=== PATIENT | female | born 1960 | race Caucasian/White ===

== ENCOUNTER → 2023-07-03 13:36 | Outpatient (REF) | payer OTHER, SELFPAY ==
[2023-07-03 14:27] LABS: % Basophils 0.5 % (0-2); % Eosinophils 2.3 % (0-6); % Immature Granulocytes 0.5 % (0-0.5); % Lymphocytes 16.5 % (20.5-51.1); % Monocytes 8.9 % (1.7-9.3); % Neutrophils 71.3 % (42.2-75.2); Absolute Eosinophils 0.2 10^3/uL (0-0.7); Absolute Lymphocytes 1.1 10^3/uL (1.2-3.4); Absolute Monocytes 0.6 10^3/uL (0.1-0.6); Absolute Neutrophils 4.7 10^3/uL (1.4-6.5); Hematocrit 35.8 % (37.0-47.0); Hemoglobin 11.9 g/dL (12.0-16.0); Mean Corp Hgb Conc. 33.2 g/dL (33.0-37.0); Mean Corpuscular Hgb 31.1 pg (27.0-31.0); Mean Corpuscular Volume 93.5 fL (81.0-99.0); Mean Platelet Volume 9.8 fL (7.4-10.4); Nucleated Red Blood Cells % 0 %; Platelet Count 123 10^3/uL (130-400); Red Blood Cell Count 3.83 10^6/uL (4.20-5.40); Red Cell Dist. Width 15.2 % (11.5-14.5); White Blood Cell Count 6.6 10^3/uL (4.8-10.8)
[2023-07-03 14:58] LABS: ALT (SGPT) 18 U/L (0-35); AST (SGOT) 40 U/L (14-36); Albumin 4.2 g/dl (3.5-5.0); Alkaline Phosphatase 86 U/L (38-126); Blood Urea Nitrogen 13 mg/dl (7-17); Calcium 9.1 mg/dl (8.4-10.2); Carbon Dioxide 29 mmol/L (22-30); Chloride 103 mmol/L (98-107); Glucose 78 mg/dl (70-99); Potassium 4.3 mmol/L (3.5-5.1); Sodium 137 mmol/L (135-145); Total Bilirubin 0.7 mg/dl (0.2-1.3); Total Protein 6.6 g/dl (6.3-8.2); eGFR > 60.00
[2023-07-06 08:08] LABS: CA 19-9 20 U/mL (<=35)
== END ==
LOC: REG 13:36
PROVIDERS: ATTENDING PHYSICIAN Internal Medicine Hematology & Oncology
DX: C25.3 Malignant neoplasm of pancreatic duct (principal); K86.81 Exocrine pancreatic insufficiency
CPT/HCPCS: 36415; 80053; 85025; 86301

== ENCOUNTER → 2023-07-24 13:17 | Outpatient (REF) | payer OTHER, SELFPAY ==
[2023-07-24 13:37] LABS: % Basophils 0.1 % (0-2); % Eosinophils 1.9 % (0-6); % Immature Granulocytes 0.5 % (0-0.5); % Monocytes 10.1 % (1.7-9.3); % Neutrophils 74.4 % (42.2-75.2); Absolute Eosinophils 0.1 10^3/uL (0-0.7); Absolute Monocytes 0.8 10^3/uL (0.1-0.6); Absolute Neutrophils 5.5 10^3/uL (1.4-6.5); Hematocrit 33.2 % (37.0-47.0); Hemoglobin 11.3 g/dL (12.0-16.0); Mean Corpuscular Hgb 32.8 pg (27.0-31.0); Mean Corpuscular Volume 96.2 fL (81.0-99.0); Mean Platelet Volume 9.6 fL (7.4-10.4); Nucleated Red Blood Cells % 0 %; Platelet Count 103 10^3/uL (130-400); Red Blood Cell Count 3.45 10^6/uL (4.20-5.40); Red Cell Dist. Width 18.4 % (11.5-14.5); White Blood Cell Count 7.5 10^3/uL (4.8-10.8)
[2023-07-24 13:52] LABS: ALT (SGPT) 33 U/L (0-35); AST (SGOT) 57 U/L (14-36); Albumin 3.8 g/dl (3.5-5.0); Alkaline Phosphatase 92 U/L (38-126); Blood Urea Nitrogen 10 mg/dl (7-17); Calcium 8.7 mg/dl (8.4-10.2); Carbon Dioxide 29 mmol/L (22-30); Chloride 103 mmol/L (98-107); Glucose 100 mg/dl (70-99); Potassium 4.5 mmol/L (3.5-5.1); Sodium 134 mmol/L (135-145); Total Bilirubin 0.8 mg/dl (0.2-1.3); Total Protein 6.1 g/dl (6.3-8.2); eGFR > 60.00
[2023-07-27 19:39] LABS: CA 19-9 19 U/mL (<=35)
== END ==
LOC: REG 13:17
PROVIDERS: ATTENDING PHYSICIAN Internal Medicine Hematology & Oncology; FAMILY PHYSICIAN Family Medicine
DX: C25.3 Malignant neoplasm of pancreatic duct (principal); K86.81 Exocrine pancreatic insufficiency
CPT/HCPCS: 36415; 80053; 85025; 86301

== ENCOUNTER → 2023-08-08 14:50 | Outpatient (REF) | payer OTHER, SELFPAY ==
[2023-08-08 15:07] LABS: % Basophils 0.3 % (0-2); % Eosinophils 1.3 % (0-6); % Immature Granulocytes 0.1 % (0-0.5); % Lymphocytes 13.1 % (20.5-51.1); % Monocytes 7.4 % (1.7-9.3); % Neutrophils 77.8 % (42.2-75.2); Absolute Eosinophils 0.1 10^3/uL (0-0.7); Absolute Monocytes 0.6 10^3/uL (0.1-0.6); Hematocrit 33.4 % (37.0-47.0); Hemoglobin 11.2 g/dL (12.0-16.0); Mean Corp Hgb Conc. 33.5 g/dL (33.0-37.0); Mean Corpuscular Volume 98.5 fL (81.0-99.0); Mean Platelet Volume 9.8 fL (7.4-10.4); Platelet Count 116 10^3/uL (130-400); Red Blood Cell Count 3.39 10^6/uL (4.20-5.40); Red Cell Dist. Width 18.4 % (11.5-14.5); White Blood Cell Count 7.7 10^3/uL (4.8-10.8)
[2023-08-08 16:12] LABS: ALT (SGPT) 21 U/L (0-35); AST (SGOT) 39 U/L (14-36); Albumin 3.8 g/dl (3.5-5.0); Alkaline Phosphatase 87 U/L (38-126); Blood Urea Nitrogen 9 mg/dl (7-17); Calcium 8.6 mg/dl (8.4-10.2); Carbon Dioxide 24 mmol/L (22-30); Chloride 105 mmol/L (98-107); Glucose 91 mg/dl (70-99); Potassium 3.9 mmol/L (3.5-5.1); Sodium 134 mmol/L (135-145); Total Bilirubin 0.6 mg/dl (0.2-1.3); Total Protein 6.2 g/dl (6.3-8.2); eGFR > 60.00
[2023-08-10 20:42] LABS: CA 19-9 18 U/mL (<=35)
== END ==
LOC: OIDL 14:50
PROVIDERS: ATTENDING PHYSICIAN Internal Medicine Hematology & Oncology
DX: C25.3 Malignant neoplasm of pancreatic duct (principal)
CPT/HCPCS: 80053; 85025; 86301

== ENCOUNTER → 2023-08-15 13:05 | Outpatient (REF) | payer OTHER, SELFPAY | LOC: RAD 13:05 | PROVIDERS: ATTENDING PHYSICIAN Internal Medicine Hematology & Oncology; FAMILY PHYSICIAN Family Medicine | DX: C25.3 Malignant neoplasm of pancreatic duct (principal); K86.81 Exocrine pancreatic insufficiency | CPT/HCPCS: 71260; 74177; Q9967 ==

== ENCOUNTER → 2023-08-20 07:56 | Outpatient (REF) | payer OTHER, SELFPAY | LOC: PAVMRI 07:56 | PROVIDERS: ATTENDING PHYSICIAN Internal Medicine Hematology & Oncology; FAMILY PHYSICIAN Family Medicine | DX: C25.3 Malignant neoplasm of pancreatic duct (principal); K86.81 Exocrine pancreatic insufficiency; L27.1 Localized skin eruption due to drugs and medicaments taken internally | CPT/HCPCS: 74183; A9575 ==

== ENCOUNTER → 2023-08-27 07:55 | Outpatient (REF) | payer OTHER, SELFPAY ==
[2023-08-27 09:45] LABS: % Basophils 0.3 % (0-2); % Eosinophils 1.4 % (0-6); % Immature Granulocytes 0.4 % (0-0.5); % Lymphocytes 11.8 % (20.5-51.1); % Monocytes 9.9 % (1.7-9.3); % Neutrophils 76.2 % (42.2-75.2); Absolute Eosinophils 0.1 10^3/uL (0-0.7); Absolute Lymphocytes 0.9 10^3/uL (1.2-3.4); Absolute Monocytes 0.7 10^3/uL (0.1-0.6); Absolute Neutrophils 5.6 10^3/uL (1.4-6.5); Hematocrit 35.1 % (37.0-47.0); Mean Corp Hgb Conc. 34.2 g/dL (33.0-37.0); Mean Corpuscular Hgb 34.5 pg (27.0-31.0); Mean Corpuscular Volume 100.9 fL (81.0-99.0); Nucleated Red Blood Cells % 0 %; Platelet Count 111 10^3/uL (130-400); Red Blood Cell Count 3.48 10^6/uL (4.20-5.40); Red Cell Dist. Width 19.9 % (11.5-14.5); White Blood Cell Count 7.3 10^3/uL (4.8-10.8)
[2023-08-27 10:13] LABS: ALT (SGPT) 18 U/L (0-35); AST (SGOT) 35 U/L (14-36); Albumin 4.3 g/dl (3.5-5.0); Alkaline Phosphatase 98 U/L (38-126); Blood Urea Nitrogen 11 mg/dl (7-17); Calcium 9.7 mg/dl (8.4-10.2); Carbon Dioxide 26 mmol/L (22-30); Chloride 102 mmol/L (98-107); Glucose 87 mg/dl (70-99); Potassium 4.9 mmol/L (3.5-5.1); Sodium 136 mmol/L (135-145); Total Bilirubin 0.7 mg/dl (0.2-1.3); Total Protein 6.7 g/dl (6.3-8.2); eGFR > 60.00
== END ==
LOC: RAD 07:55
PROVIDERS: Internal Medicine Hematology & Oncology; ATTENDING PHYSICIAN Surgery Vascular Surgery; FAMILY PHYSICIAN Family Medicine
DX: I77.9 Disorder of arteries and arterioles, unspecified (principal); C25.3 Malignant neoplasm of pancreatic duct; K86.81 Exocrine pancreatic insufficiency; L27.1 Localized skin eruption due to drugs and medicaments taken internally
CPT/HCPCS: 36415; 80053; 85025; 93922; 93978

== ENCOUNTER → 2023-09-11 10:20 | Outpatient (REF) | payer OTHER, SELFPAY ==
[2023-09-11 11:15] LABS: Urine Albumin Negative (Neg - Trace); Urine Bilirubin Negative (Negative); Urine Character Clear (Clear); Urine Color Yellow; Urine Glucose Negative (Negative); Urine Ketone Negative (Negative); Urine Leukocyte Negative (Negative); Urine Nitrite Negative (Negative); Urine Occult Blood 2+ (Negative); Urine Urobilinogen Negative (Neg - 1+)
[2023-09-11 11:16] LABS: % Basophils 0.2 % (0-2); % Eosinophils 1.6 % (0-6); % Immature Granulocytes 0.2 % (0-0.5); % Lymphocytes 13.7 % (20.5-51.1); % Neutrophils 75.3 % (42.2-75.2); Absolute Eosinophils 0.1 10^3/uL (0-0.7); Absolute Lymphocytes 0.9 10^3/uL (1.2-3.4); Absolute Monocytes 0.6 10^3/uL (0.1-0.6); Absolute Neutrophils 4.8 10^3/uL (1.4-6.5); Hematocrit 34.7 % (37.0-47.0); Hemoglobin 11.5 g/dL (12.0-16.0); Mean Corp Hgb Conc. 33.1 g/dL (33.0-37.0); Mean Corpuscular Hgb 35.3 pg (27.0-31.0); Mean Corpuscular Volume 106.4 fL (81.0-99.0); Mean Platelet Volume 10.1 fL (7.4-10.4); Nucleated Red Blood Cells % 0 %; Platelet Count 87 10^3/uL (130-400); Red Blood Cell Count 3.26 10^6/uL (4.20-5.40); Red Cell Dist. Width 20.4 % (11.5-14.5); White Blood Cell Count 6.4 10^3/uL (4.8-10.8)
[2023-09-11 11:29] LABS: Urine Squamous Cell >30 /LPF (Few)
[2023-09-11 11:30] LABS: Urine Red Blood Cell 0-2 /HPF (0-2)
[2023-09-11 12:11] LABS: ALT (SGPT) 20 U/L (0-35); AST (SGOT) 40 U/L (14-36); Alkaline Phosphatase 92 U/L (38-126); Blood Urea Nitrogen 9 mg/dl (7-17); Calcium 9.2 mg/dl (8.4-10.2); Carbon Dioxide 25 mmol/L (22-30); Chloride 102 mmol/L (98-107); Glucose 90 mg/dl (70-99); Potassium 5.1 mmol/L (3.5-5.1); Sodium 132 mmol/L (135-145); Total Bilirubin 0.7 mg/dl (0.2-1.3); Total Protein 6.3 g/dl (6.3-8.2); eGFR > 60.00
== END ==
LOC: REG 10:20
PROVIDERS: ATTENDING PHYSICIAN Internal Medicine Hematology & Oncology
DX: C25.3 Malignant neoplasm of pancreatic duct (principal); K86.81 Exocrine pancreatic insufficiency; L27.1 Localized skin eruption due to drugs and medicaments taken internally
CPT/HCPCS: 36415; 80053; 81003; 81015; 85025; 87086

== ENCOUNTER → 2023-09-28 15:20 | Outpatient (REF) | payer OTHER, SELFPAY ==
[2023-09-28 16:36] LABS: % Basophils 0.4 % (0-2); % Eosinophils 2.2 % (0-6); % Immature Granulocytes 0.2 % (0-0.5); % Lymphocytes 19.9 % (20.5-51.1); % Monocytes 11.9 % (1.7-9.3); % Neutrophils 65.4 % (42.2-75.2); Absolute Eosinophils 0.1 10^3/uL (0-0.7); Absolute Lymphocytes 1.1 10^3/uL (1.2-3.4); Absolute Monocytes 0.7 10^3/uL (0.1-0.6); Absolute Neutrophils 3.6 10^3/uL (1.4-6.5); Hemoglobin 11.2 g/dL (12.0-16.0); Mean Corpuscular Hgb 36.8 pg (27.0-31.0); Mean Corpuscular Volume 105.3 fL (81.0-99.0); Mean Platelet Volume 10.3 fL (7.4-10.4); Nucleated Red Blood Cells % 0 %; Platelet Count 105 10^3/uL (130-400); Red Blood Cell Count 3.04 10^6/uL (4.20-5.40); Red Cell Dist. Width 20.2 % (11.5-14.5); White Blood Cell Count 5.5 10^3/uL (4.8-10.8)
[2023-09-28 17:06] LABS: ALT (SGPT) 20 U/L (0-35); AST (SGOT) 43 U/L (14-36); Albumin 4.1 g/dl (3.5-5.0); Alkaline Phosphatase 91 U/L (38-126); Blood Urea Nitrogen 9 mg/dl (7-17); Carbon Dioxide 29 mmol/L (22-30); Chloride 102 mmol/L (98-107); Glucose 146 mg/dl (70-99); Potassium 4.3 mmol/L (3.5-5.1); Sodium 134 mmol/L (135-145); Total Bilirubin 0.5 mg/dl (0.2-1.3); Total Protein 6.4 g/dl (6.3-8.2); eGFR > 60.00
[2023-10-01 02:36] LABS: CA 19-9 21 U/mL (<=35)
== END ==
LOC: REG 15:20
PROVIDERS: ATTENDING PHYSICIAN Internal Medicine Hematology & Oncology; FAMILY PHYSICIAN Family Medicine
DX: C25.3 Malignant neoplasm of pancreatic duct (principal); K86.81 Exocrine pancreatic insufficiency
CPT/HCPCS: 36415; 80053; 85025; 86301

== ENCOUNTER → 2023-11-07 13:19 | Outpatient (REF) | payer OTHER, SELFPAY ==
[2023-11-07 15:18] LABS: % Basophils 0.3 % (0-2); % Eosinophils 1.4 % (0-6); % Immature Granulocytes 0.3 % (0-0.5); % Lymphocytes 13.1 % (20.5-51.1); % Monocytes 7.9 % (1.7-9.3); Absolute Eosinophils 0.1 10^3/uL (0-0.7); Absolute Lymphocytes 0.8 10^3/uL (1.2-3.4); Absolute Monocytes 0.5 10^3/uL (0.1-0.6); Absolute Neutrophils 4.5 10^3/uL (1.4-6.5); Hematocrit 34.4 % (37.0-47.0); Mean Corp Hgb Conc. 34.9 g/dL (33.0-37.0); Mean Corpuscular Volume 108.9 fL (81.0-99.0); Mean Platelet Volume 10.2 fL (7.4-10.4); Nucleated Red Blood Cells % 0 %; Platelet Count 99 10^3/uL (130-400); Red Blood Cell Count 3.16 10^6/uL (4.20-5.40); Red Cell Dist. Width 17.2 % (11.5-14.5); White Blood Cell Count 5.8 10^3/uL (4.8-10.8)
[2023-11-07 15:55] LABS: ALT (SGPT) 13 U/L (0-35); AST (SGOT) 33 U/L (14-36); Albumin 4.2 g/dl (3.5-5.0); Alkaline Phosphatase 104 U/L (38-126); Blood Urea Nitrogen 12 mg/dl (7-17); Calcium 9.2 mg/dl (8.4-10.2); Carbon Dioxide 24 mmol/L (22-30); Chloride 99 mmol/L (98-107); Glucose 98 mg/dl (70-99); Potassium 4.6 mmol/L (3.5-5.1); Sodium 132 mmol/L (135-145); Total Bilirubin 0.5 mg/dl (0.2-1.3); Total Protein 6.6 g/dl (6.3-8.2); eGFR > 60.00
[2023-11-09 21:27] LABS: CA 19-9 44 U/mL (<=35)
== END ==
LOC: RAD 13:19
PROVIDERS: ATTENDING PHYSICIAN Internal Medicine Hematology & Oncology; FAMILY PHYSICIAN Family Medicine
DX: C25.3 Malignant neoplasm of pancreatic duct (principal); K86.81 Exocrine pancreatic insufficiency; L27.1 Localized skin eruption due to drugs and medicaments taken internally
CPT/HCPCS: 36415; 71260; 74177; 80053; 85025; 86301; Q9967

== ENCOUNTER → 2023-11-14 13:01 | Outpatient (REF) | payer OTHER, SELFPAY ==
[2023-11-14 11:43] LABS: % Basophils 0.3 % (0-2); % Eosinophils 1.7 % (0-6); % Immature Granulocytes 0.2 % (0-0.5); % Lymphocytes 13.2 % (20.5-51.1); % Monocytes 9.8 % (1.7-9.3); % Neutrophils 74.8 % (42.2-75.2); Absolute Eosinophils 0.1 10^3/uL (0-0.7); Absolute Lymphocytes 0.8 10^3/uL (1.2-3.4); Absolute Monocytes 0.6 10^3/uL (0.1-0.6); Absolute Neutrophils 4.4 10^3/uL (1.4-6.5); Hematocrit 33.9 % (37.0-47.0); Hemoglobin 11.9 g/dL (12.0-16.0); Mean Corp Hgb Conc. 35.1 g/dL (33.0-37.0); Mean Corpuscular Hgb 38.4 pg (27.0-31.0); Mean Corpuscular Volume 109.4 fL (81.0-99.0); Mean Platelet Volume 9.9 fL (7.4-10.4); Platelet Count 77 10^3/uL (130-400); Red Cell Dist. Width 16.3 % (11.5-14.5); White Blood Cell Count 5.8 10^3/uL (4.8-10.8)
[2023-11-14 12:26] LABS: ALT (SGPT) 16 U/L (0-35); AST (SGOT) 35 U/L (14-36); Albumin 4.2 g/dl (3.5-5.0); Alkaline Phosphatase 91 U/L (38-126); Blood Urea Nitrogen 11 mg/dl (7-17); Carbon Dioxide 24 mmol/L (22-30); Chloride 102 mmol/L (98-107); Glucose 118 mg/dl (70-99); Potassium 4.4 mmol/L (3.5-5.1); Sodium 134 mmol/L (135-145); Total Bilirubin 0.6 mg/dl (0.2-1.3); Total Protein 6.5 g/dl (6.3-8.2); eGFR > 60.00
== END ==
LOC: OIDL 13:01
PROVIDERS: ATTENDING PHYSICIAN Internal Medicine Hematology & Oncology
DX: C25.3 Malignant neoplasm of pancreatic duct (principal)
CPT/HCPCS: 80053; 85025

== ENCOUNTER → 2023-11-27 12:09 | Outpatient (REF) | payer OTHER, SELFPAY ==
[2023-11-27 13:08] LABS: % Basophils 0.4 % (0-2); % Eosinophils 2.1 % (0-6); % Immature Granulocytes 0.4 % (0-0.5); % Lymphocytes 14.8 % (20.5-51.1); % Monocytes 10.4 % (1.7-9.3); % Neutrophils 71.9 % (42.2-75.2); Absolute Eosinophils 0.2 10^3/uL (0-0.7); Absolute Lymphocytes 1.1 10^3/uL (1.2-3.4); Absolute Monocytes 0.8 10^3/uL (0.1-0.6); Absolute Neutrophils 5.2 10^3/uL (1.4-6.5); Hemoglobin 12.5 g/dL (12.0-16.0); Mean Corp Hgb Conc. 34.7 g/dL (33.0-37.0); Mean Corpuscular Hgb 38.5 pg (27.0-31.0); Mean Corpuscular Volume 110.8 fL (81.0-99.0); Mean Platelet Volume 9.8 fL (7.4-10.4); Nucleated Red Blood Cells % 0 %; Platelet Count 104 10^3/uL (130-400); Red Blood Cell Count 3.25 10^6/uL (4.20-5.40); Red Cell Dist. Width 16.1 % (11.5-14.5); White Blood Cell Count 7.2 10^3/uL (4.8-10.8)
[2023-11-27 14:38] LABS: ALT (SGPT) 13 U/L (0-35); AST (SGOT) 35 U/L (14-36); Albumin 4.4 g/dl (3.5-5.0); Alkaline Phosphatase 98 U/L (38-126); Blood Urea Nitrogen 11 mg/dl (7-17); Calcium 9.3 mg/dl (8.4-10.2); Carbon Dioxide 24 mmol/L (22-30); Chloride 101 mmol/L (98-107); Glucose 103 mg/dl (70-99); Potassium 4.6 mmol/L (3.5-5.1); Sodium 136 mmol/L (135-145); Total Bilirubin 0.7 mg/dl (0.2-1.3); Total Protein 6.7 g/dl (6.3-8.2); eGFR > 60.00
[2023-11-29 18:31] LABS: CA 19-9 35 U/mL (<=35)
== END ==
LOC: REG 12:09
PROVIDERS: ATTENDING PHYSICIAN Internal Medicine Hematology & Oncology
DX: C25.3 Malignant neoplasm of pancreatic duct (principal); K86.81 Exocrine pancreatic insufficiency; L27.1 Localized skin eruption due to drugs and medicaments taken internally
CPT/HCPCS: 36415; 80053; 85025; 86301

== ENCOUNTER → 2023-12-20 11:49 | Outpatient (REF) | payer OTHER, SELFPAY ==
[2023-12-20 12:25] LABS: % Basophils 0.2 % (0-2); % Eosinophils 0.9 % (0-6); % Immature Granulocytes 0.8 % (0-0.5); % Lymphocytes 13.1 % (20.5-51.1); % Monocytes 8.7 % (1.7-9.3); % Neutrophils 76.3 % (42.2-75.2); Absolute Eosinophils 0.1 10^3/uL (0-0.7); Absolute Immature Granulocytes 0.1 10^3/uL (0-0.05); Absolute Lymphocytes 1.1 10^3/uL (1.2-3.4); Absolute Monocytes 0.7 10^3/uL (0.1-0.6); Absolute Neutrophils 6.5 10^3/uL (1.4-6.5); Hematocrit 37.3 % (37.0-47.0); Hemoglobin 13.4 g/dL (12.0-16.0); Mean Corp Hgb Conc. 35.9 g/dL (33.0-37.0); Mean Corpuscular Hgb 39.4 pg (27.0-31.0); Mean Corpuscular Volume 109.7 fL (81.0-99.0); Mean Platelet Volume 9.9 fL (7.4-10.4); Nucleated Red Blood Cells % 0 %; Platelet Count 103 10^3/uL (130-400); Red Cell Dist. Width 16.2 % (11.5-14.5); White Blood Cell Count 8.5 10^3/uL (4.8-10.8)
[2023-12-20 13:01] LABS: ALT (SGPT) 14 U/L (0-35); AST (SGOT) 32 U/L (14-36); Albumin 4.4 g/dl (3.5-5.0); Alkaline Phosphatase 110 U/L (38-126); Blood Urea Nitrogen 11 mg/dl (7-17); Calcium 9.4 mg/dl (8.4-10.2); Carbon Dioxide 27 mmol/L (22-30); Chloride 97 mmol/L (98-107); Glucose 105 mg/dl (70-99); Potassium 4.9 mmol/L (3.5-5.1); Sodium 131 mmol/L (135-145); Total Bilirubin 0.6 mg/dl (0.2-1.3); Total Protein 6.6 g/dl (6.3-8.2); eGFR > 60.00
== END ==
LOC: REG 11:49
PROVIDERS: ATTENDING PHYSICIAN Internal Medicine Hematology & Oncology
DX: C25.3 Malignant neoplasm of pancreatic duct (principal); K86.81 Exocrine pancreatic insufficiency; L27.1 Localized skin eruption due to drugs and medicaments taken internally
CPT/HCPCS: 36415; 80053; 85025

== ENCOUNTER → 2024-01-21 12:30 | Outpatient (REF) | payer OTHER, SELFPAY ==
[2024-01-21 13:26] LABS: % Basophils 0.4 % (0-2); % Eosinophils 1.8 % (0-6); % Immature Granulocytes 0.5 % (0-0.5); % Lymphocytes 15.3 % (20.5-51.1); % Monocytes 8.9 % (1.7-9.3); % Neutrophils 73.1 % (42.2-75.2); Absolute Eosinophils 0.1 10^3/uL (0-0.7); Absolute Lymphocytes 1.2 10^3/uL (1.2-3.4); Absolute Monocytes 0.7 10^3/uL (0.1-0.6); Absolute Neutrophils 5.7 10^3/uL (1.4-6.5); Hematocrit 36.8 % (37.0-47.0); Hemoglobin 13.1 g/dL (12.0-16.0); Mean Corp Hgb Conc. 35.6 g/dL (33.0-37.0); Mean Corpuscular Hgb 38.3 pg (27.0-31.0); Mean Corpuscular Volume 107.6 fL (81.0-99.0); Mean Platelet Volume 10.1 fL (7.4-10.4); Nucleated Red Blood Cells % 0 %; Platelet Count 107 10^3/uL (130-400); Red Blood Cell Count 3.42 10^6/uL (4.20-5.40); Red Cell Dist. Width 15.6 % (11.5-14.5); White Blood Cell Count 7.8 10^3/uL (4.8-10.8)
[2024-01-21 15:46] LABS: ALT (SGPT) 13 U/L (0-35); AST (SGOT) 35 U/L (14-36); Albumin 4.4 g/dl (3.5-5.0); Alkaline Phosphatase 89 U/L (38-126); Blood Urea Nitrogen 16 mg/dl (7-17); Calcium 9.5 mg/dl (8.4-10.2); Carbon Dioxide 24 mmol/L (22-30); Chloride 98 mmol/L (98-107); Glucose 98 mg/dl (70-99); Potassium 4.9 mmol/L (3.5-5.1); Sodium 133 mmol/L (135-145); Total Bilirubin 0.8 mg/dl (0.2-1.3); Total Protein 6.6 g/dl (6.3-8.2); eGFR > 60.00
[2024-01-23 21:54] LABS: CA 19-9 30 U/mL (<=35)
== END ==
LOC: REG 12:30
PROVIDERS: ATTENDING PHYSICIAN Internal Medicine Hematology & Oncology; FAMILY PHYSICIAN Family Medicine
DX: C25.3 Malignant neoplasm of pancreatic duct (principal); K86.81 Exocrine pancreatic insufficiency; L27.1 Localized skin eruption due to drugs and medicaments taken internally
CPT/HCPCS: 36415; 80053; 85025; 86301

== ENCOUNTER → 2024-01-29 10:58 | Outpatient (REF) | payer OTHER, SELFPAY | LOC: RAD 10:58 | PROVIDERS: ATTENDING PHYSICIAN Internal Medicine Hematology & Oncology; FAMILY PHYSICIAN Physician Assistant | DX: C25.3 Malignant neoplasm of pancreatic duct (principal); K86.81 Exocrine pancreatic insufficiency; L27.1 Localized skin eruption due to drugs and medicaments taken internally | CPT/HCPCS: 71260; 74177; Q9967 ==

== ENCOUNTER → 2024-02-22 12:23 | Outpatient (REF) | payer OTHER, SELFPAY ==
[2024-02-22 12:44] LABS: % Basophils 0.3 % (0-2); % Eosinophils 1.5 % (0-6); % Immature Granulocytes 0.3 % (0-0.5); % Lymphocytes 14.4 % (20.5-51.1); % Monocytes 8.8 % (1.7-9.3); % Neutrophils 74.7 % (42.2-75.2); Absolute Eosinophils 0.1 10^3/uL (0-0.7); Absolute Lymphocytes 0.9 10^3/uL (1.2-3.4); Absolute Monocytes 0.5 10^3/uL (0.1-0.6); Absolute Neutrophils 4.6 10^3/uL (1.4-6.5); Hemoglobin 12.4 g/dL (12.0-16.0); Mean Corp Hgb Conc. 35.4 g/dL (33.0-37.0); Mean Corpuscular Volume 112.9 fL (81.0-99.0); Mean Platelet Volume 9.8 fL (7.4-10.4); Nucleated Red Blood Cells % 0 %; Platelet Count 100 10^3/uL (130-400); Red Cell Dist. Width 15.5 % (11.5-14.5); White Blood Cell Count 6.2 10^3/uL (4.8-10.8)
[2024-02-22 13:16] LABS: ALT (SGPT) 14 U/L (0-35); AST (SGOT) 30 U/L (14-36); Albumin 4.2 g/dl (3.5-5.0); Alkaline Phosphatase 80 U/L (38-126); Blood Urea Nitrogen 11 mg/dl (7-17); Calcium 9.3 mg/dl (8.4-10.2); Carbon Dioxide 25 mmol/L (22-30); Chloride 96 mmol/L (98-107); Glucose 141 mg/dl (70-99); Potassium 4.6 mmol/L (3.5-5.1); Sodium 135 mmol/L (135-145); Total Bilirubin 0.3 mg/dl (0.2-1.3); Total Protein 6.2 g/dl (6.3-8.2); eGFR > 60.00
[2024-02-23 20:29] LABS: CA 19-9 30 U/mL (<=35)
== END ==
LOC: REG 12:23
PROVIDERS: ATTENDING PHYSICIAN Internal Medicine Hematology & Oncology
DX: C25.3 Malignant neoplasm of pancreatic duct (principal); K86.81 Exocrine pancreatic insufficiency; L27.1 Localized skin eruption due to drugs and medicaments taken internally
CPT/HCPCS: 36415; 80053; 85025; 86301

== ENCOUNTER → 2024-03-17 13:15 | Outpatient (REF) | payer OTHER, SELFPAY ==
[2024-03-17 14:08] LABS: % Basophils 0.3 % (0-2); % Eosinophils 3.3 % (0-6); % Immature Granulocytes 0.5 % (0-0.5); % Lymphocytes 12.2 % (20.5-51.1); % Monocytes 9.9 % (1.7-9.3); % Neutrophils 73.8 % (42.2-75.2); Absolute Eosinophils 0.2 10^3/uL (0-0.7); Absolute Lymphocytes 0.8 10^3/uL (1.2-3.4); Absolute Monocytes 0.6 10^3/uL (0.1-0.6); Absolute Neutrophils 4.8 10^3/uL (1.4-6.5); Hematocrit 35.6 % (37.0-47.0); Hemoglobin 12.4 g/dL (12.0-16.0); Mean Corp Hgb Conc. 34.8 g/dL (33.0-37.0); Mean Corpuscular Hgb 37.7 pg (27.0-31.0); Mean Corpuscular Volume 108.2 fL (81.0-99.0); Mean Platelet Volume 9.8 fL (7.4-10.4); Nucleated Red Blood Cells % 0 %; Platelet Count 105 10^3/uL (130-400); Red Blood Cell Count 3.29 10^6/uL (4.20-5.40); Red Cell Dist. Width 15.4 % (11.5-14.5); White Blood Cell Count 6.5 10^3/uL (4.8-10.8)
[2024-03-17 14:44] LABS: ALT (SGPT) 14 U/L (0-35); AST (SGOT) 29 U/L (14-36); Albumin 4.2 g/dl (3.5-5.0); Alkaline Phosphatase 76 U/L (38-126); Calcium 9.5 mg/dl (8.4-10.2); Carbon Dioxide 30 mmol/L (22-30); Chloride 97 mmol/L (98-107); Glucose 114 mg/dl (70-99); Sodium 134 mmol/L (135-145); Total Protein 6.3 g/dl (6.3-8.2)
[2024-03-17 15:10] LABS: Blood Urea Nitrogen 12 mg/dl (7-17); Total Bilirubin 0.3 mg/dl (0.2-1.3); eGFR > 60.00
== END ==
LOC: REG 13:15
PROVIDERS: ATTENDING PHYSICIAN Internal Medicine Hematology & Oncology
DX: C25.3 Malignant neoplasm of pancreatic duct (principal); K86.81 Exocrine pancreatic insufficiency; L27.1 Localized skin eruption due to drugs and medicaments taken internally
CPT/HCPCS: 36415; 80053; 85025

== ENCOUNTER → 2024-04-11 13:43 | Outpatient (REF) | payer OTHER, SELFPAY ==
[2024-04-11 14:37] LABS: % Basophils 0.3 % (0-2); % Eosinophils 1.4 % (0-6); % Immature Granulocytes 0.7 % (0-0.5); % Lymphocytes 10.8 % (20.5-51.1); % Monocytes 7.4 % (1.7-9.3); % Neutrophils 79.4 % (42.2-75.2); Absolute Eosinophils 0.1 10^3/uL (0-0.7); Absolute Immature Granulocytes 0.1 10^3/uL (0-0.05); Absolute Monocytes 0.7 10^3/uL (0.1-0.6); Absolute Neutrophils 7.2 10^3/uL (1.4-6.5); Hematocrit 36.6 % (37.0-47.0); Hemoglobin 13.1 g/dL (12.0-16.0); Mean Corp Hgb Conc. 35.8 g/dL (33.0-37.0); Mean Corpuscular Hgb 39.5 pg (27.0-31.0); Mean Corpuscular Volume 110.2 fL (81.0-99.0); Mean Platelet Volume 9.5 fL (7.4-10.4); Nucleated Red Blood Cells % 0 %; Platelet Count 101 10^3/uL (130-400); Red Blood Cell Count 3.32 10^6/uL (4.20-5.40); Red Cell Dist. Width 14.8 % (11.5-14.5); White Blood Cell Count 9.1 10^3/uL (4.8-10.8)
[2024-04-11 15:17] LABS: ALT (SGPT) 14 U/L (0-35); AST (SGOT) 31 U/L (14-36); Albumin 4.3 g/dl (3.5-5.0); Alkaline Phosphatase 75 U/L (38-126); Blood Urea Nitrogen 8 mg/dl (7-17); Calcium 9.1 mg/dl (8.4-10.2); Carbon Dioxide 25 mmol/L (22-30); Chloride 98 mmol/L (98-107); Glucose 102 mg/dl (70-99); Potassium 4.8 mmol/L (3.5-5.1); Sodium 134 mmol/L (135-145); Total Bilirubin 0.4 mg/dl (0.2-1.3); Total Protein 6.6 g/dl (6.3-8.2); eGFR > 60.00
== END ==
LOC: REG 13:43
PROVIDERS: ATTENDING PHYSICIAN Internal Medicine Hematology & Oncology
DX: C25.3 Malignant neoplasm of pancreatic duct (principal); K86.81 Exocrine pancreatic insufficiency; L27.1 Localized skin eruption due to drugs and medicaments taken internally
CPT/HCPCS: 36415; 80053; 85025; 86301

== ENCOUNTER → 2024-04-30 11:44 | Outpatient (REF) | payer OTHER, SELFPAY | LOC: RAD 11:44 | PROVIDERS: ATTENDING PHYSICIAN Internal Medicine Hematology & Oncology | DX: C25.3 Malignant neoplasm of pancreatic duct (principal); K86.81 Exocrine pancreatic insufficiency; L27.1 Localized skin eruption due to drugs and medicaments taken internally | CPT/HCPCS: 71260; 74177; Q9967 ==

== ENCOUNTER → 2024-05-12 12:42 | Outpatient (REF) | payer OTHER, SELFPAY ==
[2024-05-12 14:06] LABS: % Basophils 0.3 % (0-2); % Immature Granulocytes 0.5 % (0-0.5); % Lymphocytes 14.4 % (20.5-51.1); % Monocytes 10.8 % (1.7-9.3); Absolute Eosinophils 0.2 10^3/uL (0-0.7); Absolute Lymphocytes 1.1 10^3/uL (1.2-3.4); Absolute Monocytes 0.8 10^3/uL (0.1-0.6); Absolute Neutrophils 5.3 10^3/uL (1.4-6.5); Hematocrit 41.3 % (37.0-47.0); Hemoglobin 14.2 g/dL (12.0-16.0); Mean Corp Hgb Conc. 34.4 g/dL (33.0-37.0); Mean Corpuscular Hgb 37.9 pg (27.0-31.0); Mean Corpuscular Volume 110.1 fL (81.0-99.0); Mean Platelet Volume 9.9 fL (7.4-10.4); Nucleated Red Blood Cells % 0 %; Platelet Count 102 10^3/uL (130-400); Red Blood Cell Count 3.75 10^6/uL (4.20-5.40); Red Cell Dist. Width 14.6 % (11.5-14.5); White Blood Cell Count 7.4 10^3/uL (4.8-10.8)
[2024-05-12 14:08] LABS: ALT (SGPT) 22 U/L (0-35); AST (SGOT) 45 U/L (14-36); Albumin 4.6 g/dl (3.5-5.0); Alkaline Phosphatase 75 U/L (38-126); Blood Urea Nitrogen 11 mg/dl (7-17); Calcium 9.2 mg/dl (8.4-10.2); Carbon Dioxide 28 mmol/L (22-30); Chloride 95 mmol/L (98-107); Glucose 114 mg/dl (70-99); Sodium 132 mmol/L (135-145); Total Bilirubin 0.5 mg/dl (0.2-1.3); eGFR > 60.00
== END ==
LOC: REG 12:42
PROVIDERS: ATTENDING PHYSICIAN Internal Medicine Hematology & Oncology
DX: C25.3 Malignant neoplasm of pancreatic duct (principal); K86.81 Exocrine pancreatic insufficiency; L27.1 Localized skin eruption due to drugs and medicaments taken internally
CPT/HCPCS: 36415; 80053; 85025

== ENCOUNTER → 2024-06-13 13:01 | Outpatient (REF) | payer OTHER, SELFPAY ==
[2024-06-13 14:24] LABS: % Basophils 0.4 % (0-2); % Eosinophils 1.4 % (0-6); % Immature Granulocytes 0.6 % (0-0.5); % Lymphocytes 15.6 % (20.5-51.1); % Monocytes 12.8 % (1.7-9.3); % Neutrophils 69.2 % (42.2-75.2); Absolute Eosinophils 0.1 10^3/uL (0-0.7); Absolute Lymphocytes 0.8 10^3/uL (1.2-3.4); Absolute Monocytes 0.6 10^3/uL (0.1-0.6); Absolute Neutrophils 3.5 10^3/uL (1.4-6.5); Hematocrit 36.8 % (37.0-47.0); Hemoglobin 13.3 g/dL (12.0-16.0); Mean Corp Hgb Conc. 36.1 g/dL (33.0-37.0); Mean Corpuscular Hgb 37.2 pg (27.0-31.0); Mean Corpuscular Volume 102.8 fL (81.0-99.0); Nucleated Red Blood Cells % 0 %; Platelet Count 116 10^3/uL (130-400); Red Blood Cell Count 3.58 10^6/uL (4.20-5.40)
[2024-06-13 14:52] LABS: ALT (SGPT) 17 U/L (0-35); AST (SGOT) 36 U/L (14-36); Albumin 4.2 g/dl (3.5-5.0); Alkaline Phosphatase 104 U/L (38-126); Blood Urea Nitrogen 8 mg/dl (7-17); Calcium 8.7 mg/dl (8.4-10.2); Carbon Dioxide 27 mmol/L (22-30); Chloride 88 mmol/L (98-107); Glucose 109 mg/dl (70-99); Potassium 4.5 mmol/L (3.5-5.1); Sodium 123 mmol/L (135-145); Total Bilirubin 0.3 mg/dl (0.2-1.3); Total Protein 6.6 g/dl (6.3-8.2); eGFR > 60.00
[2024-06-16 08:14] LABS: CA 19-9 63 U/mL (<=35)
== END ==
LOC: REG 13:01
PROVIDERS: ATTENDING PHYSICIAN Internal Medicine Hematology & Oncology
DX: C25.3 Malignant neoplasm of pancreatic duct (principal); K86.81 Exocrine pancreatic insufficiency; L27.1 Localized skin eruption due to drugs and medicaments taken internally
CPT/HCPCS: 36415; 80053; 85025; 86301

== ENCOUNTER → 2024-06-18 14:23 | Outpatient (REF) | payer OTHER, SELFPAY ==
[2024-06-18 15:38] LABS: Blood Urea Nitrogen 10 mg/dl (7-17); Calcium 8.9 mg/dl (8.4-10.2); Carbon Dioxide 29 mmol/L (22-30); Chloride 95 mmol/L (98-107); Glucose 150 mg/dl (70-99); Potassium 4.7 mmol/L (3.5-5.1); Sodium 130 mmol/L (135-145); eGFR > 60.00
== END ==
LOC: REG 14:23
PROVIDERS: ATTENDING PHYSICIAN Internal Medicine Hematology & Oncology
DX: C25.3 Malignant neoplasm of pancreatic duct (principal); K86.81 Exocrine pancreatic insufficiency; L27.1 Localized skin eruption due to drugs and medicaments taken internally
CPT/HCPCS: 36415; 80048

== ENCOUNTER → 2024-07-07 12:09 | Outpatient (REF) | payer OTHER, SELFPAY ==
[2024-07-07 13:09] LABS: % Basophils 0.6 % (0-2); % Eosinophils 1.9 % (0-6); % Immature Granulocytes 0.3 % (0-0.5); % Lymphocytes 13.1 % (20.5-51.1); % Monocytes 8.8 % (1.7-9.3); % Neutrophils 75.3 % (42.2-75.2); Absolute Eosinophils 0.1 10^3/uL (0-0.7); Absolute Lymphocytes 0.9 10^3/uL (1.2-3.4); Absolute Monocytes 0.6 10^3/uL (0.1-0.6); Absolute Neutrophils 5.1 10^3/uL (1.4-6.5); Hematocrit 39.1 % (37.0-47.0); Hemoglobin 13.2 g/dL (12.0-16.0); Mean Corp Hgb Conc. 33.8 g/dL (33.0-37.0); Mean Corpuscular Hgb 36.3 pg (27.0-31.0); Mean Corpuscular Volume 107.4 fL (81.0-99.0); Mean Platelet Volume 9.8 fL (7.4-10.4); Nucleated Red Blood Cells % 0 %; Platelet Count 111 10^3/uL (130-400); Red Blood Cell Count 3.64 10^6/uL (4.20-5.40); White Blood Cell Count 6.8 10^3/uL (4.8-10.8)
[2024-07-07 14:00] LABS: ALT (SGPT) 23 U/L (0-35); AST (SGOT) 36 U/L (14-36); Albumin 4.5 g/dl (3.5-5.0); Alkaline Phosphatase 80 U/L (38-126); Blood Urea Nitrogen 12 mg/dl (7-17); Calcium 9.2 mg/dl (8.4-10.2); Carbon Dioxide 28 mmol/L (22-30); Chloride 93 mmol/L (98-107); Glucose 112 mg/dl (70-99); Potassium 4.6 mmol/L (3.5-5.1); Sodium 131 mmol/L (135-145); Total Bilirubin 0.9 mg/dl (0.2-1.3); Total Protein 6.5 g/dl (6.3-8.2); eGFR > 60.00
== END ==
LOC: REG 12:09
PROVIDERS: ATTENDING PHYSICIAN Internal Medicine Hematology & Oncology
DX: C25.3 Malignant neoplasm of pancreatic duct (principal); K86.81 Exocrine pancreatic insufficiency; L27.1 Localized skin eruption due to drugs and medicaments taken internally
CPT/HCPCS: 36415; 80053; 85025

== ENCOUNTER → 2024-07-16 16:01 | Outpatient (REF) | payer OTHER, SELFPAY | LOC: RAD 16:01 | PROVIDERS: ATTENDING PHYSICIAN Internal Medicine Hematology & Oncology; FAMILY PHYSICIAN Physician Assistant | DX: C25.3 Malignant neoplasm of pancreatic duct (principal); K86.81 Exocrine pancreatic insufficiency; L27.1 Localized skin eruption due to drugs and medicaments taken internally | CPT/HCPCS: 71260; 74177; Q9967 ==

== ENCOUNTER → 2024-08-07 11:58 | Outpatient (REF) | payer OTHER, SELFPAY ==
[2024-08-07 13:27] LABS: % Basophils 0.5 % (0-2); % Eosinophils 1.5 % (0-6); % Immature Granulocytes 0.5 % (0-0.5); % Lymphocytes 12.9 % (20.5-51.1); % Monocytes 7.4 % (1.7-9.3); % Neutrophils 77.2 % (42.2-75.2); Absolute Eosinophils 0.1 10^3/uL (0-0.7); Absolute Monocytes 0.6 10^3/uL (0.1-0.6); Absolute Neutrophils 5.9 10^3/uL (1.4-6.5); Hematocrit 39.4 % (37.0-47.0); Hemoglobin 13.2 g/dL (12.0-16.0); Mean Corp Hgb Conc. 33.5 g/dL (33.0-37.0); Mean Corpuscular Volume 110.4 fL (81.0-99.0); Mean Platelet Volume 9.8 fL (7.4-10.4); Nucleated Red Blood Cells % 0 %; Platelet Count 104 10^3/uL (130-400); Red Blood Cell Count 3.57 10^6/uL (4.20-5.40); Red Cell Dist. Width 15.2 % (11.5-14.5); White Blood Cell Count 7.6 10^3/uL (4.8-10.8)
[2024-08-07 14:06] LABS: ALT (SGPT) 17 U/L (0-35); AST (SGOT) 33 U/L (14-36); Albumin 4.6 g/dl (3.5-5.0); Alkaline Phosphatase 93 U/L (38-126); Blood Urea Nitrogen 7 mg/dl (7-17); Calcium 9.4 mg/dl (8.4-10.2); Carbon Dioxide 25 mmol/L (22-30); Chloride 96 mmol/L (98-107); Glucose 108 mg/dl (70-99); Potassium 4.9 mmol/L (3.5-5.1); Sodium 132 mmol/L (135-145); Total Bilirubin 0.7 mg/dl (0.2-1.3); Total Protein 6.7 g/dl (6.3-8.2); eGFR > 60.00
[2024-08-10 01:12] LABS: CA 19-9 90 U/mL (<=35)
== END ==
LOC: REG 11:58
PROVIDERS: ATTENDING PHYSICIAN Internal Medicine Hematology & Oncology
DX: C25.3 Malignant neoplasm of pancreatic duct (principal); K86.81 Exocrine pancreatic insufficiency; L27.1 Localized skin eruption due to drugs and medicaments taken internally
CPT/HCPCS: 36415; 80053; 85025; 86301

== ENCOUNTER → 2024-08-28 11:50 | Outpatient (REF) | payer OTHER, SELFPAY ==
[2024-08-28 12:26] LABS: % Basophils 0.5 % (0-2); % Eosinophils 1.6 % (0-6); % Immature Granulocytes 0.4 % (0-0.5); % Lymphocytes 14.3 % (20.5-51.1); % Monocytes 8.4 % (1.7-9.3); % Neutrophils 74.8 % (42.2-75.2); Absolute Eosinophils 0.1 10^3/uL (0-0.7); Absolute Lymphocytes 1.2 10^3/uL (1.2-3.4); Absolute Monocytes 0.7 10^3/uL (0.1-0.6); Absolute Neutrophils 6.1 10^3/uL (1.4-6.5); Hematocrit 40.6 % (37.0-47.0); Hemoglobin 13.9 g/dL (12.0-16.0); Mean Corp Hgb Conc. 34.2 g/dL (33.0-37.0); Mean Corpuscular Hgb 36.6 pg (27.0-31.0); Mean Corpuscular Volume 106.8 fL (81.0-99.0); Mean Platelet Volume 9.8 fL (7.4-10.4); Nucleated Red Blood Cells % 0 %; Platelet Count 134 10^3/uL (130-400); Red Cell Dist. Width 14.5 % (11.5-14.5); White Blood Cell Count 8.2 10^3/uL (4.8-10.8)
[2024-08-28 13:17] LABS: ALT (SGPT) 22 U/L (0-35); AST (SGOT) 36 U/L (14-36); Albumin 4.5 g/dl (3.5-5.0); Alkaline Phosphatase 99 U/L (38-126); Blood Urea Nitrogen 13 mg/dl (7-17); Calcium 9.5 mg/dl (8.4-10.2); Carbon Dioxide 27 mmol/L (22-30); Chloride 99 mmol/L (98-107); Glucose 117 mg/dl (70-99); Potassium 5.1 mmol/L (3.5-5.1); Sodium 135 mmol/L (135-145); Total Bilirubin 0.6 mg/dl (0.2-1.3); Total Protein 6.7 g/dl (6.3-8.2); eGFR > 60.00
[2024-08-30 19:42] LABS: CA 19-9 89 U/mL (<=35)
== END ==
LOC: REG 11:50
PROVIDERS: ATTENDING PHYSICIAN Internal Medicine Hematology & Oncology
DX: C25.3 Malignant neoplasm of pancreatic duct (principal); K86.81 Exocrine pancreatic insufficiency; L27.1 Localized skin eruption due to drugs and medicaments taken internally
CPT/HCPCS: 36415; 80053; 85025; 86301

== ENCOUNTER → 2024-09-23 11:48 | Outpatient (REF) | payer OTHER, SELFPAY ==
[2024-09-23 12:33] LABS: % Basophils 0.6 % (0-2); % Eosinophils 1.7 % (0-6); % Immature Granulocytes 0.4 % (0-0.5); % Lymphocytes 13.2 % (20.5-51.1); % Monocytes 9.4 % (1.7-9.3); % Neutrophils 74.7 % (42.2-75.2); Absolute Eosinophils 0.1 10^3/uL (0-0.7); Absolute Monocytes 0.7 10^3/uL (0.1-0.6); Absolute Neutrophils 5.4 10^3/uL (1.4-6.5); Hematocrit 37.7 % (37.0-47.0); Hemoglobin 12.8 g/dL (12.0-16.0); Mean Corpuscular Hgb 36.3 pg (27.0-31.0); Mean Corpuscular Volume 106.8 fL (81.0-99.0); Mean Platelet Volume 9.8 fL (7.4-10.4); Nucleated Red Blood Cells % 0 %; Platelet Count 98 10^3/uL (130-400); Red Blood Cell Count 3.53 10^6/uL (4.20-5.40); Red Cell Dist. Width 14.3 % (11.5-14.5); White Blood Cell Count 7.3 10^3/uL (4.8-10.8)
[2024-09-23 12:49] LABS: ALT (SGPT) 18 U/L (0-35); AST (SGOT) 29 U/L (14-36); Albumin 4.3 g/dl (3.5-5.0); Alkaline Phosphatase 98 U/L (38-126); Blood Urea Nitrogen 10 mg/dl (7-17); Calcium 9.2 mg/dl (8.4-10.2); Carbon Dioxide 26 mmol/L (22-30); Chloride 101 mmol/L (98-107); Glucose 137 mg/dl (70-99); Potassium 5.1 mmol/L (3.5-5.1); Sodium 135 mmol/L (135-145); Total Bilirubin 0.6 mg/dl (0.2-1.3); Total Protein 6.5 g/dl (6.3-8.2); eGFR > 60.00
== END ==
LOC: REG 11:48
PROVIDERS: ATTENDING PHYSICIAN Internal Medicine Hematology & Oncology
DX: C25.3 Malignant neoplasm of pancreatic duct (principal); K86.81 Exocrine pancreatic insufficiency; L27.1 Localized skin eruption due to drugs and medicaments taken internally
CPT/HCPCS: 36415; 80053; 85025

== ENCOUNTER → 2024-09-29 10:50 | Outpatient (REF) | payer OTHER, SELFPAY | LOC: RAD 10:50 | PROVIDERS: ATTENDING PHYSICIAN Internal Medicine Hematology & Oncology | DX: C25.3 Malignant neoplasm of pancreatic duct (principal); K86.81 Exocrine pancreatic insufficiency; L27.1 Localized skin eruption due to drugs and medicaments taken internally | CPT/HCPCS: 71260; 74177; Q9967 ==

== ENCOUNTER → 2024-11-07 13:05 | Outpatient (REF) | payer OTHER, SELFPAY ==
[2024-11-07 14:30] LABS: % Basophils 0.5 % (0-2); % Eosinophils 1.7 % (0-6); % Immature Granulocytes 0.4 % (0-0.5); % Lymphocytes 14.6 % (20.5-51.1); % Monocytes 8.1 % (1.7-9.3); % Neutrophils 74.7 % (42.2-75.2); Absolute Eosinophils 0.1 10^3/uL (0-0.7); Absolute Lymphocytes 1.2 10^3/uL (1.2-3.4); Absolute Monocytes 0.7 10^3/uL (0.1-0.6); Absolute Neutrophils 6.2 10^3/uL (1.4-6.5); Hematocrit 38.8 % (37.0-47.0); Hemoglobin 13.3 g/dL (12.0-16.0); Mean Corp Hgb Conc. 34.3 g/dL (33.0-37.0); Mean Corpuscular Hgb 35.8 pg (27.0-31.0); Mean Corpuscular Volume 104.6 fL (81.0-99.0); Mean Platelet Volume 10.6 fL (7.4-10.4); Nucleated Red Blood Cells % 0 %; Platelet Count 114 10^3/uL (130-400); Red Blood Cell Count 3.71 10^6/uL (4.20-5.40); Red Cell Dist. Width 14.5 % (11.5-14.5); White Blood Cell Count 8.2 10^3/uL (4.8-10.8)
[2024-11-07 15:49] LABS: ALT (SGPT) 16 U/L (0-35); AST (SGOT) 33 U/L (14-36); Albumin 4.4 g/dl (3.5-5.0); Alkaline Phosphatase 80 U/L (38-126); Blood Urea Nitrogen 9 mg/dl (7-17); Carbon Dioxide 24 mmol/L (22-30); Chloride 100 mmol/L (98-107); Glucose 135 mg/dl (70-99); Potassium 4.9 mmol/L (3.5-5.1); Sodium 131 mmol/L (135-145); Total Bilirubin 0.8 mg/dl (0.2-1.3); Total Protein 6.8 g/dl (6.3-8.2); eGFR > 60.00
[2024-11-09 21:48] LABS: CA 19-9 133 U/mL (<=35)
== END ==
LOC: REG 13:05
PROVIDERS: ATTENDING PHYSICIAN Internal Medicine Hematology & Oncology
DX: C25.3 Malignant neoplasm of pancreatic duct (principal); K86.81 Exocrine pancreatic insufficiency; L27.1 Localized skin eruption due to drugs and medicaments taken internally
CPT/HCPCS: 36415; 80053; 85025; 86301

== ENCOUNTER → 2024-12-05 12:19 | Outpatient (REF) | payer OTHER, SELFPAY ==
[2024-12-05 13:09] LABS: Hematocrit 39.4 % (37.0-47.0); Hemoglobin 13.8 g/dL (12.0-16.0); Mean Corp Hgb Conc. 35.0 g/dL (33.0-37.0); Mean Corpuscular Volume 104.5 fL (81.0-99.0); Nucleated Red Blood Cells % 0 %; Platelet Count 110 10^3/uL (130-400); Red Cell Dist. Width 15.1 % (11.5-14.5)
[2024-12-05 13:39] LABS: ALT (SGPT) 20 U/L (0-35); AST (SGOT) 35 U/L (14-36); Albumin 4.6 g/dl (3.5-5.0); Alkaline Phosphatase 98 U/L (38-126); Blood Urea Nitrogen 12 mg/dl (7-17); Calcium 9.1 mg/dl (8.4-10.2); Carbon Dioxide 26 mmol/L (22-30); Chloride 100 mmol/L (98-107); Glucose 108 mg/dl (70-99); Potassium 5.2 mmol/L (3.5-5.1); Sodium 131 mmol/L (135-145); Total Protein 6.9 g/dl (6.3-8.2); eGFR > 60.00
== END ==
LOC: REG 12:19
PROVIDERS: ATTENDING PHYSICIAN Internal Medicine Hematology & Oncology
DX: C25.3 Malignant neoplasm of pancreatic duct (principal); K86.81 Exocrine pancreatic insufficiency; L27.1 Localized skin eruption due to drugs and medicaments taken internally
CPT/HCPCS: 36415; 80053; 85025

== ENCOUNTER → 2024-12-08 10:57 | Outpatient (REF) | payer OTHER, SELFPAY | LOC: RAD 10:57 | PROVIDERS: ATTENDING PHYSICIAN Internal Medicine Hematology & Oncology | DX: C25.3 Malignant neoplasm of pancreatic duct (principal); K86.81 Exocrine pancreatic insufficiency; L27.1 Localized skin eruption due to drugs and medicaments taken internally | CPT/HCPCS: 71260; 74177; Q9967 ==

== ENCOUNTER → 2024-12-24 15:41 | Outpatient (REF) | payer OTHER, SELFPAY ==
[2024-12-24 17:26] LABS: Hematocrit 38.4 % (37.0-47.0); Hemoglobin 12.9 g/dL (12.0-16.0); Mean Corp Hgb Conc. 33.6 g/dL (33.0-37.0); Mean Corpuscular Volume 106.1 fL (81.0-99.0); Nucleated Red Blood Cells % 0 %; Platelet Count 122 10^3/uL (130-400); Red Cell Dist. Width 15.4 % (11.5-14.5)
[2024-12-24 17:45] LABS: ALT (SGPT) 17 U/L (0-35); AST (SGOT) 30 U/L (14-36); Albumin 4.6 g/dl (3.5-5.0); Alkaline Phosphatase 81 U/L (38-126); Blood Urea Nitrogen 9 mg/dl (7-17); Calcium 9.1 mg/dl (8.4-10.2); Carbon Dioxide 29 mmol/L (22-30); Chloride 98 mmol/L (98-107); Glucose 94 mg/dl (70-99); Potassium 5.0 mmol/L (3.5-5.1); Sodium 132 mmol/L (135-145); Total Protein 6.8 g/dl (6.3-8.2); eGFR > 60.00
[2024-12-27 04:35] LABS: CA 19-9 150 U/mL (<=35)
== END ==
LOC: REG 15:41
PROVIDERS: ATTENDING PHYSICIAN Internal Medicine Hematology & Oncology
DX: C25.3 Malignant neoplasm of pancreatic duct (principal); K86.81 Exocrine pancreatic insufficiency; L27.1 Localized skin eruption due to drugs and medicaments taken internally
CPT/HCPCS: 36415; 80053; 85025; 86301

== ENCOUNTER → 2025-01-21 12:25 | Outpatient (REF) | payer OTHER, SELFPAY ==
[2025-01-21 13:51] LABS: Hematocrit 38.3 % (37.0-47.0); Hemoglobin 13.0 g/dL (12.0-16.0); Mean Corp Hgb Conc. 33.9 g/dL (33.0-37.0); Mean Corpuscular Volume 105.8 fL (81.0-99.0); Nucleated Red Blood Cells % 0 %; Platelet Count 122 10^3/uL (130-400); Red Cell Dist. Width 15.0 % (11.5-14.5)
[2025-01-21 14:24] LABS: ALT (SGPT) 18 U/L (0-35); AST (SGOT) 30 U/L (14-36); Albumin 4.2 g/dl (3.5-5.0); Alkaline Phosphatase 81 U/L (38-126); Blood Urea Nitrogen 10 mg/dl (7-17); Calcium 8.8 mg/dl (8.4-10.2); Carbon Dioxide 25 mmol/L (22-30); Chloride 99 mmol/L (98-107); Glucose 191 mg/dl (70-99); Potassium 4.4 mmol/L (3.5-5.1); Sodium 130 mmol/L (135-145); Total Protein 6.4 g/dl (6.3-8.2); eGFR > 60.00
== END ==
LOC: REG 12:25
PROVIDERS: ATTENDING PHYSICIAN Internal Medicine Hematology & Oncology
DX: C25.3 Malignant neoplasm of pancreatic duct (principal); K86.81 Exocrine pancreatic insufficiency; L27.1 Localized skin eruption due to drugs and medicaments taken internally
CPT/HCPCS: 36415; 80053; 85025

== ENCOUNTER → 2025-01-28 12:20 | Outpatient (REF) | payer OTHER, SELFPAY | LOC: RAD 12:20 | PROVIDERS: ATTENDING PHYSICIAN Internal Medicine Hematology & Oncology | DX: C25.3 Malignant neoplasm of pancreatic duct (principal); K86.81 Exocrine pancreatic insufficiency; L27.1 Localized skin eruption due to drugs and medicaments taken internally | CPT/HCPCS: 72072 ==

== ENCOUNTER 2025-01-30 23:10 | Inpatient (IN) | payer OTHER, SELFPAY ==
[2025-01-30 19:09] VITALS: BP 187/77
[2025-01-30 19:39] LABS: Hematocrit 34.3 % (37.0-47.0); Hemoglobin 12.4 g/dL (12.0-16.0); Mean Corp Hgb Conc. 36.2 g/dL (33.0-37.0); Mean Corpuscular Volume 101.2 fL (81.0-99.0); Nucleated Red Blood Cells % 0.2 %; Platelet Count 145 10^3/uL (130-400); Red Cell Dist. Width 15.0 % (11.5-14.5)
[2025-01-30 19:55] LABS: ALT (SGPT) 23 U/L (0-35); AST (SGOT) 31 U/L (14-36); Albumin 4.4 g/dl (3.5-5.0); Alkaline Phosphatase 82 U/L (38-126); Blood Urea Nitrogen 12 mg/dl (7-17); Calcium 9.3 mg/dl (8.4-10.2); Carbon Dioxide 26 mmol/L (22-30); Chloride 95 mmol/L (98-107); Glucose 99 mg/dl (70-99); Potassium 4.7 mmol/L (3.5-5.1); Sodium 124 mmol/L (135-145); Total Protein 6.8 g/dl (6.3-8.2); eGFR > 60.00
[2025-01-30 20:01] LABS: Troponin I < 0.012 ng/ml
[2025-01-30 20:23] VITALS: BP 175/76
--- NOTE | 2025-01-30 20:50 | ED.GENMED ---
History of Present Illness
General
Chief Complaint: Chest Pain
Time Seen by Provider: 01/30/25 20:24
History of Present Illness
History of Present Illness:
64-year-old female with history of pancreatic cancer on maintenance chemotherapy presenting for right sided back pain with radiation to her chest. Notes symptoms for the past 3 weeks, however have been worsening since onset. Denies trauma or
injury. Denies fever or cough. She continue oxycodone at home without significant relief. She discussed with her oncologist who advised that she come to the hospital for further evaluation. Pain is worse with the menstruation. Denies abdominal
pain. Denies shortness of breath. Denies history of blood clots. Denies additional acute medical complaints
Past History
Past History
ED Past Medical History: HTN
ED Past Surgical History:
Social History
Tobacco: Smoker
Alcohol: Binge drinker
Personal:
Living: with family
Phy Exam
Physical Exam
Physical Exam:
General: Well-appearing, no clinical signs of dehydration, nontoxic and in no acute distress
HEENT: protecting airway
Neck: appears supple
CV: Normal heart rate, regular rhythm
Resp: No accessory muscle use, no increased work of breathing, lungs clear to auscultation bilaterally. Mild tenderness to the right thoracic back musculature with no overlying skin changes
Abd: Soft and non-distended, no tenderness to palpation, normal bowel sounds
Extremities: No deformities, no swelling
Neuro: alert, no focal neurologic deficit
: deferred
Rectal: deferred
Psych: Normal affect
Skin: Intact
Scores
Heart Score for Chest Pain Patients
STEMI patient?: No
History: Slightly or Non-Suspicious
ECG: Normal
Age: >/= 65 years
Risk Factors: 1 or 2 Risk Factors
Troponin: </= Normal Limit
Heart Score for Chest Pain Patients: 3
Heart Score Risk: 2.5% MACE over next 6 weeks
Course
Orders/Labs/Results
Orders:
Orders
01/30/25 19:08
Electrocardiogram (*1) Urgent
Reason for Study: Other
Other Reason for Exam: Respiratory Distress
Cardiac Monitoring- Treatment ONCE
EKG- Treatment ONCE
CR Chest - 2 Views Urgent
Comment:
Reason For Exam: respiratory distress
O2 Therapy [RESP] Urgent
Titrate/Wean O2 to maintain O2 sat greater than (%): 93
Special Instructions: TO MAINTAIN CONTINUOUS O2 SATS >/= 93%
Pulse Ox/cont/shift [RESP] Urgent
Quantity: 1
Special Instructions: continuous pulse ox
01/30/25 19:26
Complete Blood Count/With Diff Urgent
Comprehensive Metabolic Panel Urgent
NT-proBNP Urgent
Troponin I Urgent
01/30/25 20:45
CT Chest PE Study Urgent
Comment:
Reason For Exam: R-back pain, pain with inspiration, pancreatic CA
01/30/25 20:47
Morphine Sulfate 4 mg IV NOW STA
01/30/25 22:29
Cefepime HCl [Maxipime] 2,000 mg IV NOW STA
HYDROmorphone [Dilaudid] 1 mg IV NOW STA
01/30/25 23:01
Admit/Transfer Patient As Directed
Co-Sign Provider:
Level of Care: Inpatient admission
Assign to:: Medical/Surgical
Physician / Group: shiela
Diagnosis: endobrconchial infection
Reason for Hospitalization: endobrconchial infection
Expected length of stay greater than two midnights?: Yes
ELOS- Estimated Length of Stay in days: 2
I certify the patient meets the requirements for IP care: Yes
Code Status As Directed
Resuscitation Status: Do not resuscitate
Reached after discussion with pt or family/Healthcare POA: Yes
DNR Bracelet Application ONCE
PRN Pain Medication Management As Directed
May give lesser potent ordered pain med per pt: Yes
preference::
Protocol:: Medication orders for pain may be administered in a
manner that supports deferring to patient preference
when the pt is:
- Requesting an ordered lesser potent pain medication.
Least to most potent pain medications are defined
as: acetaminophen < NSAID < tramadol < opioids
(morphine, oxycodone, hydromorphone).
- Requesting a lesser dose of the same medication IF
ORDERED.
- Requesting a less intrusive route of administration
if both routes are prescribed by the provider (PO <
IV).
01/30/25 23:02
Respiratory Culture/Gram Stain Urgent
JUANITO Source: Sputum
Specimen Description:
01/30/25 23:03
Urine Osmolality Random [Osmolality, Random Urine] Urgent
Urine Sodium Urgent
01/31/25 00:51
Cefepime HCl [Maxipime] 2,000 mg IV Q12H
Morphine Sulfate 2 mg IV Q4HPRN PRN
Prochlorperazine [Compazine] 5 mg PO Q6HPRN PRN
VANCOMYCIN Pharmacy to Dose [VANCOCIN Pharmacy to Dose] 1 each Pharmacy To Prepare [Call Pharmacy To Prepare] 0 ml IV PER PROTOCOL
01/31/25 00:51
Activity As Directed
Activity Level: As Tolerated
Vital Signs As Directed
Frequency: Per unit guidelines
DX Deep Vein Thrombosis Video Routine
01/31/25 06:00
Complete Blood Count/With Diff IN AM
Comprehensive Metabolic Panel IN AM
01/31/25 08:00
Heparin 5,000 units SC Q12
01/31/25 Dinner
Regular
Fluid Restriction: 1200 mL/day (40 oz)
01/31/25 22:00
Atenolol [Tenormin] 25 mg PO HS
Pregabalin [Lyrica] 300 mg PO HS
Ropinirole [Requip] 0.5 mg PO HS
Abnormal Lab Results
01/30/25
19:26
WBC 15.7 H 10^3/uL
(4.8-10.8)
RBC 3.39 L 10^6/uL
(4.20-5.40)
Hct 34.3 L %
(37.0-47.0)
MCV 101.2 H fL
(81.0-99.0)
MCH 36.6 H pg
(27.0-31.0)
RDW 15.0 H %
(11.5-14.5)
Abs Immat Gran (auto) 0.6 H 10^3/uL
(0-0.05)
Absolute Neuts (auto) 10.7 H 10^3/uL
(1.4-6.5)
Absolute Monos (auto) 1.5 H 10^3/uL
(0.1-0.6)
Immature Gran % 3.6 H %
(0-0.5)
Lymphocytes % 17.3 L %
(20.5-51.1)
Monocytes % 9.4 H %
(1.7-9.3)
Sodium 124 L mmol/L
(135-145)
Chloride 95 L mmol/L
(98-107)
01/30/25 19:26
01/30/25 19:26
Vital Signs
Initial and Last Documented VS:
Initial Vital Signs
Temp Pulse Resp BP Pulse Ox
97.6 F 63 16 187/77 98
01/30/25 19:09 01/30/25 19:09 01/30/25 19:09 01/30/25 19:09 01/30/25 19:09
Last Documented Vital Signs
Temp Pulse Resp BP Pulse Ox
97.3 F 60 20 154/63 99
01/31/25 00:54 01/31/25 00:54 01/31/25 00:54 01/31/25 00:54 01/31/25 00:54
MDM/Problems Addressed
MDM/Problems Addressed:
64-year-old female with history of pancreatic cancer presenting for right sided chest and back pain. Vital signs on arrival are significant for hypertension.
On exam patient is resting comfortably, no acute distress. Patient notes pain particularly with deep inspiration, has been ongoing for 3 weeks. EKG obtained on arrival, nonischemic. Without current suspicion for ACS. PE is a consideration given
active cancer, pain with deep inspiration. High risk patient so will obtain CT of the chest. Pneumothorax is a consideration, however lungs clear to auscultation bilaterally, lower suspicion. Patient had labs obtained prior to my assessment, does
have a process, however notes she was recently on steroids for the pain, no improvement. Infection is a consideration with a leukocytosis however denies fever or cough. Again will assess further with CT imaging of the chest. Morphine administered
for pain
22:30 -patient CT shows possible right sided lower lobe infection which is consistent with patient's symptoms. Given patient's immunocompromise state, elevated white blood cell count, persistent pain, will admit for IV antibiotics. Dilaudid
administered for pain
*Pulse Oximetry
SaO2: 98
Oxygen Mode of Delivery: Room air
Patient hypoxic: no
*EKG
Interpreted by ED Provider?: Yes
EKG Intrepretation Date: 01/30/25
EKG Intrepretation Time: 21:01
Interpretation: normal
Heart Rate: 65
Rate: normal
Rhythm: sinus
[place]: normal axis
Interval: normal interval
QRS Pattern: normal QRS
Ischemia: no ischemia
*Critical Care Note
Total Time (30-74mins, 75-104mins- exclusive of procedures): Not Applicable
ED Attending Note
-
Portions of this chart may have been created with voice recognition software.� Occasional wrong word or��sound alike� substitutions may have occurred due to the inherent limitations of voice recognition software.
Discharge Plan
Departure
Patient Disposition: Admit
Date of Disposition: 01/30/25
Time of Disposition: 22:35
Presentation/result/management discussed w/ accepting MD/DO: Hospitalist
Patient with high blood pressure during this ER visit?: Yes
Condition: Fair
Discharge Problem:
Right lower lobe pneumonia, Acute right-sided back pain
Interventions
Interventions:
*Risk Screen - Suicide Last Done: 01/30/25 21:30
*General Assessment Last Done: 01/30/25 21:30
*Neglect/Abuse Screening Last Done: 01/30/25 21:30
*ED COVID-19 Vaccine History Last Done: 01/31/25 01:37
*Nursing Disposition Last Done: 01/31/25 00:34
ED- Cardiac Assessment Last Done: 01/30/25 21:00
Discharge Date and Time
Discharge Date/Time: 01/31/25 00:34
[2025-01-30] MEDS: MORPHINE SULFATE 4 MG IV (20:53)
[2025-01-30 21:00] VITALS: BP 148/66
[2025-01-30 22:44] VITALS: BP 144/66
[2025-01-30 23:00] VITALS: BP 150/68
[2025-01-30] MEDS: MAXIPIME 2000 MG IV (23:06)
[2025-01-30] MEDS: DILAUDID 1 MG IV (23:06)
--- NOTE | 2025-01-30 23:08 | HPS.HSE ---
Family Physician
-
Family Physician: * NONE
Chief Complaint
-
back pain
History of Present Illness
64-year-old female past medical history of pancreatic cancer on maintenance chemotherapy capecitabine, hypertension, neuropathy, restless leg syndrome, presenting for right-sided back pain with radiation to the chest for the past 3 weeks. Pain is
worse with movement, palpation or breathing. She does have some cough. Denies shortness of breath. Denies fevers or chills. She has been taking oxycodone without relief. She has chronic loose stools/diarrhea from chemotherapy. She has
occasional chronic nausea and acid reflux but denies any vomiting at this time. Denies abdominal pain.
She has lost 5 pounds in the past 3 weeks. She has been drinking more fluids recently. She might be drinking at least 64 ounces of fluids per day.
Medical History
Past Medical History
Past Medical History: Reports Other (pancreatic cancer on maintenance chemotherapy capecitabine, hypertension, neuropathy, restless leg syndrome,)
Past Surgical History: Reports None
Social History
Tobacco: Non-smoker
Alcohol: None
Drug: None
Family History
Family History: Not pertinent
Allergies / Home Medications
Allergies reflects when Allergies were last updated in [facility].
Home Medications with original date entered in [facility]
Allergy/Medication List:
Allergies
Allergy/AdvReac Type Severity Reaction Status Date / Time
hydrocodone (From Vicodin) Allergy Itching Verified 01/30/25 19:13
lisinopril Allergy TACHYCARDIA Verified 01/30/25 19:13
Sulfa (Sulfonamide Allergy Itching, Verified 01/30/25 19:13
Antibiotics) hives
sulfamethoxazole Allergy Itching, Verified 01/30/25 19:13
hives
trimethoprim Allergy Itching, Verified 01/30/25 19:13
hives
Home Medications
atenolol 25 mg tablet 25 mg PO HS Blood pressure 05/27/20
acetaminophen 325 mg tablet 650 mg (2 x 325 mg) PO Q4HPRN PRN fever, mild pain 06/04/20
aspirin 81 mg chewable tablet 81 mg PO DAILY 06/04/20
atorvastatin 40 mg tablet 40 mg PO QPM #30 tabs 06/04/20
pregabalin 100 mg capsule 200 mg PO HS 09/29/21
pregabalin 300 mg capsule (Lyrica) 300 mg PO HS 01/30/25
ropinirole 0.5 mg tablet 0.5 mg PO HS 01/30/25
Review of Systems
-
History Source: Patient
A 12 point ROS was completed and negative except as noted: Yes
Constitutional: Reports No Symptoms
EENT: Reports No Symptoms
Respiratory: Reports No Symptoms
Cardiac: Reports No Symptoms
Abdomen/GI: Reports No Symptoms
: Reports No Symptoms
Musculoskeletal: Reports See HPI
Skin: Reports No Symptoms
Neurological: Reports No Symptoms
Endocrine: Reports No Symptoms
Hematologic/Lymphatic: Reports No Symptoms
Psych: Reports No Symptoms
Physical Exam
Vital Signs
Vital Signs
Temp Pulse Resp BP Pulse Ox
97.6 F 65 10 175/76 98
01/30/25 19:09 01/30/25 20:30 01/30/25 20:30 01/30/25 20:23 01/30/25 20:51
Physical Exam
General: Well Developed, Well Nourished and No Apparent Distress
HEENT: NormoCephalic, Moist mucous membranes and Atraumatic
Respiratory: Clear
Cardiac: S1/S2 and Regular Rhythm; No Murmur or Rub
GI: Soft, Non Tender, Non Distended and Normal Bowel Sounds; No Organomegaly
Rectal: Deferred by Provider
Musculoskeletal: No Clubbing, No Cyanosis, No Edema and Other (tenderness of back and chest )
Skin: No Rash
Neuro: Nonfocal/grossly intact
Laboratory Results
-
01/30/25 19:26
01/30/25 19:
Laboratory Results
Total Bilirubin 0.5 mg/dl (0.2-1.3) 01/30/25 19:
AST 31 U/L (14-36) 01/30/25 19:
ALT 23 U/L (0-35) 01/30/25 19:
Alkaline Phosphatase 82 U/L (38-126) 01/30/25 19:
Troponin I < 0.012 ng/ml 01/30/25 19:
Data Reviewed
-
Lab Data: Labs Reviewed by me
Old Records: Reviewed
Impression/Plan
-
IMPRESSION:
PLAN:
# Right lower lobe endobronchial infection in immunocompromised patient
-Leukocytosis
- CT PE shows mild peripheral endobronchial infection of the right lower lobe, moderate bilateral upper lobe centrilobular emphysema,
-Check sputum culture
-Vancomycin/cefepime
- Morphine for pain
- Hold capecitabine for now
# Worsening of chronic hyponatremia likely multifactorial secondary to polydipsia/SIADH from malignancy/NSAID use
- Sodium 124 from 130
- Check urine sodium, osmolality
- Fluid restriction 40 ounces
Pancreatic cancer
-On maintenance chemotherapy capecitabine, which should be held for now
- Continue as needed Compazine
Essential hypertension
-Continue atenolol
Neuropathy
- Continue Lyrica
Restless leg syndrome
- Continue ropinirole
GERD
DNR/DNI
DVT prophylaxis-heparin
Regular diet
[2025-01-30 23:18] VITALS: BMI 17.8
[2025-01-31] VITALS: BP 127/64
[2025-01-31] MEDS: VANCOCIN 530 MG IV (00:04)
[2025-01-31 00:54] VITALS: BP 154/63; BMI 18.3
[2025-01-31] MEDS: DILAUDID 0.5 MG IV ×5 (02:15→22:28)
[2025-01-31] MEDS: MAXIPIME 1000 MG IV ×3 (05:24→17:50)
[2025-01-31] MEDS: STERILE WATER FOR INJECTION 10 ML IV ×3 (05:24→17:50)
[2025-01-31 07:06] VITALS: BP 169/69
[2025-01-31] MEDS: HEPARIN 5000 UNITS SC (07:58)
--- NOTE | 2025-01-31 08:21 | PHA.VAN.IN ---
Assessment
- Assessment
Renal Function: Appears similar to baseline
Concomitant Antimicrobials: cefepime
AUC Dosing Plan
- Dosing Variables
Dosing Weight (kg): 51.369
Dosing CrCl (ml/min): 76
Vd coefficient (L/kg): 0.7
- Empiric Dosing
Initial / Loading Dose: 1500mg
Maintenance Regimen: 500mg q12h
Estimated AUC (mcg*h/mL): 426
Estimated Peak (mcg*h/mL): 25.1
Estimated Trough (mcg/ml): 11.9
Estimated Half Life (H): 10.3
- Monitoring
No levels ordered at this time: consider at steady state
MRSA Screen: Ordered per protocol
Pharmacokinetics Vancomycin I
- -
Patient Age: 64
Patient Sex: Female
Vancomycin Day #: 1
Indication: Pulmonary/Respiratory
Requesting Provider: Dr. Hposon
Pertinent Antimicrobial Allergies:
sulfa=itching, hives
Height / Weight:
Height 5 ft 6 in
Actual Weight 51.369 kg
IBW in k.3
- Vital Signs / Lab Results
Temp Pulse Resp BP Pulse Ox
97.7 F 68 18 169/69 95
01/31/25 07:06 01/31/25 07:06 01/31/25 07:06 01/31/25 07:06 01/31/25 07:06
Lab Results - Hematology
01/30/25
19:26
WBC 15.7 H
Lab Results - Chemistry
01/30/25
19:26
BUN 12
Creatinine 0.6
Albumin 4.4
[2025-01-31 08:29] LABS: ALT (SGPT) 21 U/L (0-35); AST (SGOT) 26 U/L (14-36); Albumin 3.5 g/dl (3.5-5.0); Alkaline Phosphatase 62 U/L (38-126); Blood Urea Nitrogen 11 mg/dl (7-17); Calcium 8.6 mg/dl (8.4-10.2); Carbon Dioxide 27 mmol/L (22-30); Chloride 98 mmol/L (98-107); Estimated Creatinine Clearance 76 ml/min; Glucose 128 mg/dl (70-99); Potassium 5.0 mmol/L (3.5-5.1); Sodium 126 mmol/L (135-145); Total Protein 5.4 g/dl (6.3-8.2); eGFR > 60.00
[2025-01-31 09:00] VITALS: BP 140/74
[2025-01-31] MEDS: TORADOL 15 MG IV ×2 (09:21→15:44)
[2025-01-31] MEDS: PROTONIX 40 MG PO (09:21)
[2025-01-31 11:18] LABS: Hematocrit 31.9 % (37.0-47.0); Hemoglobin 11.3 g/dL (12.0-16.0); Mean Corp Hgb Conc. 35.4 g/dL (33.0-37.0); Mean Corpuscular Volume 103.6 fL (81.0-99.0); Nucleated Red Blood Cells % 0 %; Platelet Count 106 10^3/uL (130-400); Red Cell Dist. Width 15.3 % (11.5-14.5)
[2025-01-31 12:53] LABS: Cortisol, Random 3.6 ug/dl; TSH 2.85 uIU/ml (0.47-4.68)
--- NOTE | 2025-01-31 13:22 | W.PN.HOSP.TC ---
Addendum entered and electronically signed by Jefferson Hernandez MD 01/31/25 16:20:
Seen and examined the patient. Agree with plan set forth by the resident. Discussed the plan. See changes in my documentation
64-year-old female with right scapular area pain. She stated that she lost 5 pounds in 3 weeks
On examination patient is awake alert pleasant
Cardiovascular system S1 is appreciated
Chest clear to auscultation
Has mild tenderness in the right scapular area and right rib area with palpation
No right upper quadrant tenderness noted in the liver area or epigastric area
Abdomen is soft
CT chest-moderate bilateral upper lobe centrilobular emphysema. Mild peripheral endobronchial infection in the right lower lobe. Moderate calcific atherosclerotic plaque in the thoracic aorta. 3.3 cm pancreatic cancer.
# Right upper back pain
No rashes
Unclear if this is muscular pain, no PE noted
Possible pneumonia with pleurisy is also a consideration, pain worse with laying down flat
EKG with sinus rhythm
X-ray of the thoracic spine done as outpatient does not have any compression fractures
Symptomatic treatment for pain, treat infection and see if pleurisy gets better
# Endobronchial infection/pneumonia-continue antibiotics
Sputum culture if possible
# Hyponatremia- Serum OSm and utine Osm not done as the Osm instrument not working per lab
Urine sodium indicates SIADH
Fluid restriction and follow sodium
If not getting better may need to DC ketorolac
# Mild thrombocytopenia
# Atherosclerosis/hyperlipidemia-continue statin
# Hypertension-atenolol
# Pancreatic adenocarcinoma diagnosed in 2022
Status post 6 cycles of Chemo (FOLFIRINOX ?), 5 rounds of CyberKnife radiation, currently on Xeloda.
Follows up with Dr. Quinn Keller - Will consult.
# Chronic back pain secondary to spinal stenosis/DDD-continue Lyrica
# Restless leg syndrome-continue Requip
# DVT prophylaxis-Lovenox
# Full code
Part of this note was created using voice recognition system. Occasional wrong word or��sound alike� substitutions may have inadvertently occurred due to the inherent limitations of voice recognition software. If noted kindly bring it to my
attention for correction.
Original Note:
Today's Communication/Plan
-
Continue IV antibiotics (Vanc/cefepime)
Pain control
incentive srinath
Assessment / Plan
Assessment / Plan
IMPRESSION:
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
PLAN:
# Right lower lobe endobronchial infection in immunocompromised patient
CT PE shows mild peripheral endobronchial infection of the right lower lobe, moderate bilateral upper lobe centrilobular emphysema,
- Leukocytosis resolved
-Check sputum culture when able to produce sputum
-Continue Vancomycin/cefepime
- Dilaudid and Ketorolac PRN for pain. incentive srinath
- Hold capecitabine for now
# Worsening of chronic hyponatremia likely multifactorial secondary to polydipsia/SIADH from malignancy/NSAID use
- Sodium 124 --> 126
- Check urine sodium, osmolality
- Fluid restriction 40 ounces
#Chest wall pain and tenderness:
- Likely neuropathic in nature. No known metastasis of pancreatic cancer
- will continue pain control as above and monitor
Pancreatic cancer:
-On maintenance chemotherapy capecitabine, which should be held for now
- Continue as needed Compazine (hx of QTC elongation)
- Oncology consult
Essential hypertension
-Continue atenolol
Neuropathy
- Continue Lyrica
Restless leg syndrome
- Continue ropinirole
GERD
DNR/DNI
DVT prophylaxis-heparin
Regular diet
Anticipated Discharge: 24 - 48 hours
Subjective/Interval History
-
Date of Service: January 31, 2025
Objective Data
-
Labs:
Laboratory Results
01/31/25
07:40
WBC 10.1
Hgb 11.3 L
Hct 31.9 L
Plt Count 106 L D
Sodium 126 L
Potassium 5.0
Chloride 98
Carbon Dioxide 27
BUN 11
Creatinine 0.6
Glucose 128 H
Calcium 8.6
Total Bilirubin 0.5
AST 26
ALT 21
Alkaline Phosphatase 62
Vital Signs:
Vital Signs
Temp Pulse Resp BP Pulse Ox
97.7 F 70 18 140/74 95
01/31/25 07:06 01/31/25 09:00 01/31/25 07:06 01/31/25 09:00 01/31/25 07:06
Review of Systems
-
History Source: Patient
Constitutional: Reports No Appetite
Respiratory: Reports Cough (nonproductive), Trouble Breathing (due to pain) and Pleurisy
Cardiac: Denies Palpitations, PND or Orthopnea
Abdomen/GI: Reports GERD; Denies Nausea or Vomiting
Genitourinary: Denies Dysuria, Difficulty Voiding or Bleeding
Musculoskeletal: Reports Other (right sided chest wall tenderness anteriorly under right breast and upper right posterior chest)
Skin: Denies Rash
Physical Exam
-
General: Well Developed, Well Nourished and No Apparent Distress
HEENT: Normocephalic, Atraumatic, Moist Mucous Membranes and Anicteric
Respiratory: Clear to Auscultation, Other (cautious respiratory effort) and Chest Tubes (chest wall tenderness right upper posterior chest, through lateral chest to anterior chest wall below right breast. no rash); Negative Wheezes, Rales, Rhonchi
or Crackles
Cardiac: Regular Rhythm and S1/S2; Negative Murmur, Rub or Calf Tenderness
GI: Soft, Nontender, Nondistended and Normal Bowel Sounds
Musculoskeletal: No Clubbing, No Cyanosis and No Edema
Skin: Warm and Dry; Negative Rash
Neuro: Awake, Alert and Oriented
Psych: Calm
[2025-01-31 15:04] LABS: Urine Character Clear (Clear)
[2025-01-31 15:30] VITALS: BP 152/72
[2025-01-31 15:35] LABS: Urine White Cell 0-2 /HPF (0-5)
[2025-01-31 16:43] VITALS: BMI 18.3
[2025-01-31] MEDS: LOVENOX 40 MG SC (17:50)
[2025-01-31] MEDS: TENORMIN 25 MG PO (22:44)
[2025-01-31] MEDS: LYRICA 300 MG PO (22:44)
[2025-01-31] MEDS: REQUIP 0.5 MG PO (22:45)
[2025-01-31 23:00] VITALS: BP 138/75
[2025-01-31] MEDS: REMOVE LIDOCAINE PATCH REMOVE (23:31)
[2025-02-01] MEDS: STERILE WATER FOR INJECTION 10 ML IV ×4 (00:08→17:48)
[2025-02-01] MEDS: MAXIPIME 1000 MG IV ×4 (00:09→17:47)
[2025-02-01] MEDS: DILAUDID 0.5 MG IV ×2 (05:19→10:56)
[2025-02-01 05:57] LABS: Hematocrit 31.8 % (37.0-47.0); Hemoglobin 11.4 g/dL (12.0-16.0); Mean Corp Hgb Conc. 35.8 g/dL (33.0-37.0); Mean Corpuscular Volume 103.2 fL (81.0-99.0); Platelet Count 121 10^3/uL (130-400); Red Cell Dist. Width 14.6 % (11.5-14.5)
[2025-02-01 06:27] LABS: Blood Urea Nitrogen 8 mg/dl (7-17); Calcium 9.2 mg/dl (8.4-10.2); Carbon Dioxide 28 mmol/L (22-30); Chloride 101 mmol/L (98-107); Estimated Creatinine Clearance 76 ml/min; Glucose 101 mg/dl (70-99); Potassium 5.2 mmol/L (3.5-5.1); Sodium 129 mmol/L (135-145); eGFR > 60.00
[2025-02-01 07:07] VITALS: BP 115/51
[2025-02-01] MEDS: TORADOL 15 MG IV ×2 (07:59→17:54)
[2025-02-01] MEDS: PROTONIX 40 MG PO (07:59)
--- NOTE | 2025-02-01 12:28 | CM ---
CM reviewed chart. IA completed. IMM signed today and placed on chart.
Pt being treated for Endobronchial infection/pneumonia-continue antibiotics
Sputum culture if possible.
Pt arrived from home alone w/supportive neighbors.
Lives in 2story home w/approx 3+1ste.
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
Anticipate home w/nn.
No active PCP- pt stated she follows with [facility] for all needs.
Pharm: [facility]
[address], [place], [place]
[phone]
CM/SW will continue to follow to ensure a safe and timely dc.
--- NOTE | 2025-02-01 14:49 | W.PN.HOSP.TC ---
Today's Communication/Plan
-
Continue antibiotics
Fluid restriction
1 dose of Lasix
Labs in the morning
Assessment / Plan
Assessment / Plan
64-year-old female with right scapular area pain. She stated that she lost 5 pounds in 3 weeks
On examination patient is awake alert pleasant
Cardiovascular system S1 is appreciated
Chest clear to auscultation
Has mild tenderness in the right scapular area , pain and tenderness much better today
No right upper quadrant tenderness noted in the liver area or epigastric area
Abdomen is soft
CT chest-moderate bilateral upper lobe centrilobular emphysema. Mild peripheral endobronchial infection in the right lower lobe. Moderate calcific atherosclerotic plaque in the thoracic aorta. 3.3 cm pancreatic cancer.
# Right upper back pain
No rashes
Unclear if this is muscular pain, no PE noted
Possible pneumonia with pleurisy is also a consideration, pain worse with laying down flat
EKG with sinus rhythm
X-ray of the thoracic spine done as outpatient does not have any compression fractures
Patient states that her pain is much better today
# Endobronchial infection/pneumonia-continue antibiotics
Sputum culture if possible. Patient has not been able to obtain
# Hyponatremia-
Serum and urine osmolality and urine sodium indicates SIADH
Fluid restriction and follow sodium, 1 dose of Lasix today to help with sodium as well as mild hyperkalemia likely secondary to NSAIDs
If not getting better may need to DC ketorolac
# Mild thrombocytopenia
# Atherosclerosis/hyperlipidemia-continue statin
# Hypertension-atenolol
# Pancreatic adenocarcinoma diagnosed in 2022
Status post 6 cycles of Chemo (FOLFIRINOX ?), 5 rounds of CyberKnife radiation, currently on Xeloda.
Follows up with Dr. Quinn Keller - Consulted
# Chronic back pain secondary to spinal stenosis/DDD-continue Lyrica
# Restless leg syndrome-continue Requip
# DVT prophylaxis-Lovenox
# Full code
Part of this note was created using voice recognition system. Occasional wrong word or��sound alike� substitutions may have inadvertently occurred due to the inherent limitations of voice recognition software. If noted kindly bring it to my
attention for correction.
Anticipated Discharge: Within 24 hours
Subjective/Interval History
-
Date of Service: February 01, 2025
Objective Data
-
Labs:
Laboratory Results
02/01/25
04:20
WBC 6.5
Hgb 11.4 L
Hct 31.8 L
Plt Count 121 L
Sodium 129 L
Potassium 5.2 H
Chloride 101
Carbon Dioxide 28
BUN 8
Creatinine 0.5 L
Glucose 101 H
Calcium 9.2
Vital Signs:
Vital Signs
Temp Pulse Resp BP Pulse Ox
98.0 F 62 16 115/51 98
02/01/25 07:07 02/01/25 07:07 02/01/25 07:07 02/01/25 07:07 02/01/25 07:07
I&O
01/31/25 02/01/25 02/02/25
06:59 06:59 06:59
Intake Total 984 / 984
Balance 984 / 984
[2025-02-01 15:28] VITALS: BP 127/56
[2025-02-01] MEDS: ROXICODONE 10 MG PO (15:37)
[2025-02-01] MEDS: LASIX 20 MG PO (15:38)
[2025-02-01] MEDS: LOVENOX 40 MG SC (17:47)
[2025-02-01] MEDS: LYRICA 300 MG PO (21:23)
[2025-02-01] MEDS: REMOVE LIDOCAINE PATCH 1 PATCH REMOVE (21:23)
[2025-02-01] MEDS: FLEXERIL 5 MG PO (21:23)
[2025-02-01] MEDS: DILAUDID 0.25 MG IV (21:24)
[2025-02-01] MEDS: TENORMIN 25 MG PO (21:24)
[2025-02-01] MEDS: REQUIP 0.5 MG PO (21:25)
--- NOTE | 2025-02-01 22:32 | CON.ONC ---
Consultation
-
Date Consultation Requested: 02/01/25
Date Consultation Performed: 02/01/25
Requesting Provider: Mishle
Performing Provider: Rashida
Reason for Consultation: pancreatic cancer
Impression
Impression
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
Paraspinal muscle tenderness right thoracic cage secondary to exertion
Plan
Plan
Patient remains afebrile without cough; she notes marked improvement of her paraspinal pain and wishes to switch to an oral formulation with hopes of discharge in the next 24 hours; prescription written for oxycodone 10 mg every 4 hours as needed
which I instructed her to request instead of IV Dilaudid; I have spoken to her nurse regarding the same
Patient History
History of Present Illness
64-year-old white female with history of stage IIa adenocarcinoma of the pancreas 10/14/2022 treated with induction neoadjuvant therapy for unresectable disease as determined by Dr. Huerta at the [facility]. Due to localized vascular
involvement as well as extension to the left adrenal gland. No she received FOLFIRINOX therapy from 10/18/2022 through 02/07/2023. PET scan at diagnosis noted no evidence of distant metastasis rather local extension. Subsequent CT scans obtained
throughout treatment noted stabilization of disease. In May 2023 she initiated therapy with maintenance capecitabine which following several dose adjustments she has tolerated to this point. Results of her CA 19-9 noted a marked reduction from
500 to normalization of CA 19-9 following FOLFIRINOX with progressive rise of CA 19-9 since 02/15/2024 with most recent studies noting a level of 150 in November 2024 despite continued restaging studies noting stable disease.
She was admitted to the hospital with what she described as musculoskeletal type pain in the paraspinal muscles to the right following working in her garden. She noted that the oxycodone which she uses sparingly on but on a daily basis was unable
to cover the pain prompting her to come to the emergency room. CT scan of the chest for PE noted no arterial filling defects there is moderate emphysema of the upper lobes there is no evidence of progression in the upper abdomen. There is evidence
of peripheral endobronchial infection of the right lower lobe prompting IV antibiotic therapy. To date she has been using IV Dilaudid judiciously notes for ability to wean down from admission.
Past-Medical/Surgical History
Spinal fusion 2019; abdominal aortic bypass 2020
Patient Medication
�Medication �Instructions �Recorded �Confirmed �Last Taken �Type
atenolol 25 mg tablet 25 mg PO HS Blood pressure 05/27/20 01/31/25 10/11/22 History
pregabalin 100 mg capsule 100 mg PO HS 09/29/21 01/31/25 2 Days Ago History
~01/29/25
pregabalin 300 mg capsule (Lyrica) 300 mg PO HS 01/30/25 01/31/25 2 Days Ago History
~01/29/25
ropinirole 0.5 mg tablet 0.5 mg PO HS 01/30/25 01/31/25 2 Days Ago History
~01/29/25
Active Medications
Generic Name Dose Route Start Last Admin
Trade Name Freq PRN Reason Stop Dose Admin
Atenolol 25 mg 01/31/25 22:00 02/01/25 21:24
Atenolol 25 Mg Tablet PO 02/28/25 21:59 25 mg
HS DARLINE Administration
Cefepime HCl 1,000 mg 01/31/25 06:00 02/01/25 17:47
Cefepime Hcl 1,000 Mg/11.3 Ml Vial IV 1,000 mg
Q6 DARLINE Administration
Cyclobenzaprine HCl 5 mg 02/01/25 21:03 02/01/25 21:23
Cyclobenzaprine 10 Mg Tablet PO 03/01/25 21:02 5 mg
Q8HPRN PRN Administration
back spasm
Enoxaparin Sodium 40 mg 01/31/25 18:00 02/01/25 17:47
Enoxaparin Sodium 40 Mg/0.4 Ml Syringe SC 02/28/25 17:59 40 mg
QPM DARLINE Administration
Ketorolac Tromethamine 15 mg 01/31/25 08:40 02/01/25 17:54
Ketorolac 15 Mg/Ml Injection IV 02/05/25 08:39 15 mg
Q6HPRN PRN Administration
moderate pain
Lidocaine 1 patch 01/31/25 13:30 02/01/25 07:59
Lidocaine 4% Topical Patch TOPICAL 02/28/25 13:29 Not Given
DAILY DARLINE
Protocol
Oxycodone HCl 10 mg 02/01/25 15:16 02/01/25 15:37
Oxycodone 10 Mg Regular Release Tablet PO 02/15/25 15:15 10 mg
Q4HPRN PRN Administration
severe pain first
Pantoprazole Sodium 40 mg 01/31/25 09:00 02/01/25 07:59
Pantoprazole 40 Mg Delayed Release Tablet PO 02/28/25 08:59 40 mg
DAILY DARLINE Administration
Patch Removal 0 patch 01/31/25 23:00 02/01/25 21:23
Remove Lidocaine Patch REMOVE 02/28/25 22:59 1 patch
DAILY@2000 DARLINE Administration
Pregabalin 300 mg 01/31/25 22:00 02/01/25 21:23
Pregabalin 100 Mg Capsule PO 02/28/25 21:59 300 mg
HS DARLINE Administration
Prochlorperazine Maleate 5 mg 01/31/25 00:51
Prochlorperazine 5 Mg Tablet PO 02/28/25 00:50
Q6HPRN PRN
nausea
Ropinirole HCl 0.5 mg 01/31/25 22:00 02/01/25 21:25
Ropinirole 0.25 Mg Tablet PO 02/28/25 21:59 0.5 mg
HS DARLINE Administration
Sodium Chloride 0 flush 01/31/25 01:00
Sodium Chloride 0.9% (Flush) Syringe IV 02/28/25 00:59
PER PROTOCOL DARLINE
Sterile Water 10 ml 01/31/25 06:00 02/01/25 17:48
Sterile Water For Injection 10 Ml Vial IV 02/28/25 05:59 10 ml
Q6 DARLINE Administration
Tramadol HCl 50 mg 02/01/25 15:22
Tramadol Hcl 50 Mg Tablet PO 03/01/25 15:21
Q6HPRN PRN
moderate pain
Review of Systems
-
History Source: Patient
All Other Systems: Reviewed and Negative
Physical Exam
-
General: Well Developed
HEENT: Moist Mucous Membranes
Cardiology: Normal Sinus Rhythm
Pulmonary: Clear
GI: Soft and Normal Bowel Sounds
Musculoskeletal: Other (Palpable tenderness that reproduces her pain in the right paraspinal)
Neurology: Non Focal
Skin: Warm
Hematologic / Lymphatic: No Lymphadenopathy
Psych: Calm
Labs
Lab Results
WBC 6.5 10^3/uL (4.8-10.8) 02/01/25 04:20
RBC 3.08 10^6/uL (4.20-5.40) L 02/01/25 04:20
Hgb 11.4 g/dL (12.0-16.0) L 02/01/25 04:20
Hct 31.8 % (37.0-47.0) L 02/01/25 04:20
MCV 103.2 fL (81.0-99.0) H 02/01/25 04:20
MCH 37.0 pg (27.0-31.0) H 02/01/25 04:20
MCHC 35.8 g/dL (33.0-37.0) 02/01/25 04:20
RDW 14.6 % (11.5-14.5) H 02/01/25 04:20
Plt Count 121 10^3/uL (130-400) L 02/01/25 04:20
MPV 10.1 fL (7.4-10.4) 02/01/25 04:20
Abs Immat Gran (auto) 0.3 10^3/uL (0-0.05) H 01/31/25 07:40
Absolute Neuts (auto) 7.4 10^3/uL (1.4-6.5) H 01/31/25 07:40
Absolute Lymphs (auto) 1.3 10^3/uL (1.2-3.4) 01/31/25 07:40
Absolute Monos (auto) 1.0 10^3/uL (0.1-0.6) H 01/31/25 07:40
Absolute Eos (auto) 0.2 10^3/uL (0-0.7) 01/31/25 07:40
Absolute Basos (auto) 0.0 10^3/uL (0-0.2) 01/31/25 07:40
Immature Gran % 2.5 % (0-0.5) H 01/31/25 07:40
Neutrophils % 73.1 % (42.2-75.2) 01/31/25 07:40
Lymphocytes % 12.7 % (20.5-51.1) L 01/31/25 07:40
Monocytes % 10.0 % (1.7-9.3) H 01/31/25 07:40
Eosinophils % 1.6 % (0-6) 01/31/25 07:40
Basophils % 0.1 % (0-2) 01/31/25 07:40
Creatinine 0.5 mg/dL (0.6-1.0) L 02/01/25 04:20
Vital Signs
Vital Signs
Temp Pulse Resp BP Pulse Ox
97.9 F 100 16 131/68 98
02/01/25 15:28 02/01/25 21:24 02/01/25 15:28 02/01/25 21:24 02/01/25 15:28
[2025-02-01 23:15] VITALS: BP 115/61
[2025-02-02] MEDS: MAXIPIME 1000 MG IV ×3 (00:09→11:52)
[2025-02-02] MEDS: STERILE WATER FOR INJECTION 10 ML IV ×3 (00:09→11:52)
[2025-02-02 07:02] VITALS: BP 121/52
[2025-02-02] MEDS: PROTONIX 40 MG PO (08:00)
[2025-02-02] MEDS: ULTRAM 50 MG PO (08:05)
[2025-02-02 08:42] LABS: Blood Urea Nitrogen 10 mg/dl (7-17); Calcium 8.6 mg/dl (8.4-10.2); Carbon Dioxide 29 mmol/L (22-30); Chloride 100 mmol/L (98-107); Estimated Creatinine Clearance 76 ml/min; Glucose 104 mg/dl (70-99); Potassium 5.0 mmol/L (3.5-5.1); Sodium 130 mmol/L (135-145); eGFR > 60.00
--- NOTE | 2025-02-02 09:49 | W.PN.ONC2 ---
Today's Communication / Plan
-
OP follow up with Dr. Anthony 02/11/2025
Impression
Impression
a/w R scapular pain
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
Hand and foot syndrome
Diarrhea 2/2 capecitabine +/- pancreatic insufficiency
Paraspinal muscle tenderness right thoracic cage secondary to exertion
cancer associated pain on oxy IR 5-10mg Q8 prn at home
hyponatremia
emphysema
Plan
Plan
pain control
discharge planning
Subjective/Objective
Subjective
afebrile, no hypoxia or hypotension
using lidoderm pathc, ICE, massage, oxycodone IR, tramadol, and cyclobenzaprine for right scapular pain with improvement in pain
Vital Signs:
Vital Signs
Temp Pulse Resp BP Pulse Ox
98.1 F 77 16 121/52 98
02/02/25 07:02 02/02/25 07:02 02/02/25 07:02 02/02/25 07:02 02/02/25 07:02
Lab Results:
Laboratory Data
WBC 6.5 10^3/uL (4.8-10.8) 02/01/25 04:20
Hgb 11.4 g/dL (12.0-16.0) L 02/01/25 04:20
Plt Count 121 10^3/uL (130-400) L 02/01/25 04:20
eGFR > 60.00 02/02/25 07:50
Physical Exam
HEENT: Moist Mucous Membranes; No Jaundice
Pulmonary: Other (unlabored)
GI: Soft
Extremities: Pulses Present
--- NOTE | 2025-02-02 12:51 | W.DCSUMMARY ---
Discharge Summary
Discharge Data
Date of Admission: 01/30/25
Date of Discharge: 02/02/25
Total time spent discharging patient (in min): 35
-
Pending Results: No
Hospital Course
64-year-old female past medical history of pancreatic cancer on maintenance chemotherapy capecitabine, hypertension, neuropathy, restless leg syndrome, presenting for right-sided back pain with radiation to the chest for the past 3 weeks. Pain was
worse with movement, palpation or breathing. She did have some cough. Denied shortness of breath. She had been taking oxycodone without relief. She had chronic loose stools/diarrhea from chemotherapy. She has occasional chronic nausea and acid
reflux but denies any vomiting at this time. Denies abdominal pain. She has been drinking more fluids recently. She might be drinking at least 64 ounces of fluids per day.
CT chest-moderate bilateral upper lobe centrilobular emphysema. Mild peripheral endobronchial infection in the right lower lobe. Moderate calcific atherosclerotic plaque in the thoracic aorta. 3.3 cm pancreatic cancer.
# Right upper back pain
No rashes
Unclear if this is muscular pain, no PE noted
Possible pneumonia with pleurisy is also a consideration, pain worse with laying down flat
EKG with sinus rhythm
X-ray of the thoracic spine done as outpatient does not have any compression fractures
Patient states that her pain is much better today
# Endobronchial infection/pneumonia-continue antibiotics
Sputum culture if possible. Patient has not been able to obtain
# Hyponatremia
Serum and urine osmolality and urine sodium indicates SIADH
Fluid restriction and follow sodium, 1 dose of Lasix today to help with sodium as well as mild hyperkalemia likely secondary to NSAIDs
# Mild thrombocytopenia
# Atherosclerosis/hyperlipidemia-continue statin
# Hypertension-atenolol
# Pancreatic adenocarcinoma diagnosed in 2022
Status post 6 cycles of Chemo (FOLFIRINOX ?), 5 rounds of CyberKnife radiation, currently on Xeloda.
Follows up with Dr. Quinn Keller - Consulted
# Chronic back pain secondary to spinal stenosis/DDD-continue Lyrica
# Restless leg syndrome-continue Requip
Discharge Plan
-
Patient Disposition: Home (Routine Discharge)
Discharge Diagnosis/Procedures: Right upper back pain
Endobronchial infection/pneumonia
Hyponatremia
Mild thrombocytopenia
Atherosclerosis
High cholesterol
Hypertension
Pancreatic adenocarcinoma
Chronic back pain secondary to spinal stenosis/DJD
Restless leg syndrome
Diet: Regular and Restrict fluids to 48 oz
Activity: As tolerated
Driving Restrictions: As prior to admission
Blood Work: bmp 1 week
Referrals:
Jovanna Keller, DO [Active, Hematology / Oncology]
NONE,* [Family Provider, Internal Medicine]
Additional Discharge Medication Instructions: Please finish the antibiotic Ceftin (cefuroxime) for 3 days to complete your antibiotic course of a total of 7 days.
Please get a basic metabolic panel (BMP) in 1 week to follow-up on your serum sodium level. Please follow-up with your executive consultant�oncologist for the BMP results.
Please use the oxycodone prescription provided by her executive consultant�oncologist as needed for pain control. Since oxycodone is an opioid and can cause constipation, please monitor the frequency of your bowel movements. If you have less than 1 bowel
movement a day, please start taking a stool softener.
Prescriptions:
New
(DME) Basic metabolic panel
See Rx Instructions .ROUTE .MEDSUPPLY Qty: 1 0RF
Rx Instructions:
Please get a basic metabolic panel in 1 week to follow-up with your oncologist on hyponatremia.
cefuroxime axetil 500 mg tablet
500 mg PO BID Qty: 3 0RF
Continued
atenolol 25 MG tablet
25 mg PO HS
ropinirole 0.5 mg Tablet
0.5 mg PO HS
pregabalin [Lyrica] 300 mg Capsule
300 mg PO HS
Discontinued
pregabalin 100 MG capsule
100 mg PO HS
Discharge Date and Time
Print Language: [place] CITIZEN
--- NOTE | 2025-02-02 13:18 | W.PN.HOSP.TC ---
Addendum entered and electronically signed by Jefferson Hernandez MD 02/02/25 14:28:
Seen and examined the patient with the resident. Agree with the plan
Patient states that her pain is much better today she has 1 spot just medial to the right scapula where it hurts but is much better. Mostly after she lays down when she moves around the pain is better. Palpation shows the same area of tenderness.
No rashes no restriction for movements.
Hyponatremia is getting better patient is aware about following fluid restriction
Complete antibiotics for total of 7 days
If hematology oncology also agrees we will discharge the patient today
Total discharge time more than 30 minutes
Original Note:
Today's Communication/Plan
-
Patient's right upper thoracic back pain is controlled on pain medication. Hematology�oncology agrees that the patient is medically safe for discharge. Her oncologist already prescribed her oxycodone, which she can take as needed for the right
upper back pain.
For hyponatremia, she was instructed to get a BMP in 1 week and to follow-up with her oncologist.
Assessment / Plan
Assessment / Plan
Ms. Viky Baum is a 64-year-old female with a PMH for pancreatic carcinoma stage IIa, neuropathy, RLS, hypertension, who presented with focal right upper thoracic back pain.
CT chest-moderate bilateral upper lobe centrilobular emphysema. Mild peripheral endobronchial infection in the right lower lobe. Moderate calcific atherosclerotic plaque in the thoracic aorta. 3.3 cm pancreatic cancer.
# Right upper back pain
No rashes
Unclear if this is muscular pain, no PE noted
Possible pneumonia with pleurisy is also a consideration, pain worse with laying down flat
X-ray of the thoracic spine done as outpatient does not show any compression fractures
Patient states that her pain is better today
# Endobronchial infection/pneumonia-continue antibiotics
Sputum culture if possible. Patient has not been able to obtain
# Hyponatremia-
Serum and urine osmolality and urine sodium indicates SIADH
Fluid restriction and follow sodium, 1 dose of Lasix today to help with sodium as well as mild hyperkalemia likely secondary to NSAIDs
# Mild thrombocytopenia
# Atherosclerosis/hyperlipidemia-continue statin
# Hypertension-atenolol
# Pancreatic adenocarcinoma diagnosed in 2022
Status post 6 cycles of Chemo (FOLFIRINOX ?), 5 rounds of CyberKnife radiation, currently on Xeloda.
Follows up with Dr. Quinn Keller - Consulted
# Chronic back pain secondary to spinal stenosis/DDD-continue Lyrica
# Restless leg syndrome-continue Requip
# DVT prophylaxis-Lovenox
# Full code
Part of this note was created using voice recognition system. Occasional wrong word or��sound alike� substitutions may have inadvertently occurred due to the inherent limitations of voice recognition software. If noted kindly bring it to my
attention for correction.
Anticipated Discharge: Today
Subjective/Interval History
-
Date of Service: February 02, 2025
No acute events overnight. Patient reported that her focal right upper back pain is reproducible with staying still and palliated with upper body movement.
Objective Data
-
Labs:
Laboratory Results
02/02/25
07:50
Sodium 130 L
Potassium 5.0
Chloride 100
Carbon Dioxide 29
BUN 10
Creatinine 0.6
Glucose 104 H
Calcium 8.6
Vital Signs:
Vital Signs
Temp Pulse Resp BP Pulse Ox
98.1 F 77 16 121/52 98
02/02/25 07:02 02/02/25 07:02 02/02/25 07:02 02/02/25 07:02 02/02/25 07:02
I&O
02/01/25 02/02/25 02/03/25
06:59 06:59 06:59
Intake Total 984 / 984 480 / 480
Balance 984 / 984 480 / 480
Review of Systems
-
History Source: Patient
All other systems: Reviewed and negative
Physical Exam
-
General: Well Developed, Well Nourished, No Apparent Distress and Comfortable
HEENT: Normocephalic, Atraumatic, Moist Mucous Membranes, Nose Appears Normal and Ears Appear Normal
Respiratory: Clear to Auscultation
Cardiac: Regular Rhythm and S1/S2
GI: Soft, Nontender, Nondistended and Normal Bowel Sounds
Musculoskeletal: No Clubbing, No Cyanosis and No Edema
Skin: Warm and Dry
Neuro: Awake, Alert and Oriented
Psych: Calm
Data Reviewed
-
Diagnostic Radiology: Report Reviewed by me
CT Scan: Report Reviewed by me
Labs: Labs Reviewed by me
--- NOTE | 2025-02-02 13:30 | CM ---
Spoke with patient in room .
She said MD ordered her po antibiotics and she is discharged today.
Offered VN she declined need.
She said she will drive herself home at [place].
PLAN Home no needs
[2025-02-02 13:59] VITALS: BP 134/64
--- NOTE | 2025-02-02 14:11 | PN.CDI ---
Addendum entered and electronically signed by Jefferson Hernandez MD 02/02/25 16:04:
Documentation is complete at this time.
Original Note:
CDI
- -
CDI:
Physician Documentation Request
Admit Date: 01/30/25 23:10
Dear Doctor Tere,
Please review the following and provide your response in the progress notes.
Clinical Indicators:
Height: 5 ft 6 inches
Weight: 110 lbs
BMI: 17.8 (01/30)
Please provide an associated diagnosis related to the abnormal BMI :
BMI < or = to 19
Underweight
Weight Loss
Cachectic
Anorexia
- BMI is not significant
- Other
Use of terms such as suspected, likely, concern for, or probable (associated with a specific diagnosis that is being evaluated, monitored, or treated as if it exists) are acceptable and can be coded in the inpatient setting, when documented at the
time of discharge.
Thank you,
Nicole Waterman RN, BSN
CDI Specialist
tiger text
Please use your independent medical judgment in providing your response.
[2025-02-02 15:17] VITALS: BP 134/64
== END 2025-02-02 16:33 | disposition home or self-care (01) | DRG 194 ==
LOC: 4 WEST ACU 23:10
PROVIDERS: Emergency Medicine; Student in an Organized Health Care Education/Training Program; ADMITTING PHYSICIAN Hospitalist; ATTENDING PHYSICIAN Hospitalist; CONSULT PHYSICIAN Internal Medicine Hematology & Oncology; EMERGENCY PHYSICIAN Student in an Organized Health Care Education/Training Program
DX: J18.9 Pneumonia, unspecified organism (principal); C25.9 Malignant neoplasm of pancreas, unspecified; E22.2 Syndrome of inappropriate secretion of antidiuretic hormone; D84.9 Immunodeficiency, unspecified; K52.1 Toxic gastroenteritis and colitis; D69.6 Thrombocytopenia, unspecified; E78.00 Pure hypercholesterolemia, unspecified; I10 Essential (primary) hypertension; M48.00 Spinal stenosis, site unspecified; M19.90 Unspecified osteoarthritis, unspecified site; G25.81 Restless legs syndrome; F17.200 Nicotine dependence, unspecified, uncomplicated; Z88.8 Allergy status to other drugs, medicaments and biological substances; Z88.2 Allergy status to sulfonamides; J43.2 Centrilobular emphysema; G62.9 Polyneuropathy, unspecified; K21.9 Gastro-esophageal reflux disease without esophagitis; T45.1X5A Adverse effect of antineoplastic and immunosuppressive drugs, initial encounter; T39.395A Adverse effect of other nonsteroidal anti-inflammatory drugs [NSAID], initial encounter; Z66 Do not resuscitate; Z98.1 Arthrodesis status; Z79.899 Other long term (current) drug therapy
CPT/HCPCS: 71046; 71275; 80048; 80053; 81003; 81015; 82533; 83880; 84300; 84443; 84484; 85025; 85027; 87641; 93005; 96374; 99285; Q9967

== ENCOUNTER → 2025-02-09 16:04 | Outpatient (REF) | payer OTHER, SELFPAY ==
[2025-02-09 17:22] LABS: Hematocrit 31.7 % (37.0-47.0); Hemoglobin 10.7 g/dL (12.0-16.0); Mean Corp Hgb Conc. 33.8 g/dL (33.0-37.0); Mean Corpuscular Volume 106.7 fL (81.0-99.0); Nucleated Red Blood Cells % 0 %; Platelet Count 129 10^3/uL (130-400); Red Cell Dist. Width 15.1 % (11.5-14.5)
[2025-02-09 17:40] LABS: ALT (SGPT) 19 U/L (0-35); AST (SGOT) 28 U/L (14-36); Albumin 3.8 g/dl (3.5-5.0); Alkaline Phosphatase 72 U/L (38-126); Blood Urea Nitrogen 9 mg/dl (7-17); Calcium 8.8 mg/dl (8.4-10.2); Carbon Dioxide 28 mmol/L (22-30); Chloride 101 mmol/L (98-107); Glucose 121 mg/dl (70-99); Potassium 4.6 mmol/L (3.5-5.1); Sodium 134 mmol/L (135-145); Total Protein 6.0 g/dl (6.3-8.2); eGFR > 60.00
[2025-02-11 20:58] LABS: CA 19-9 299 U/mL (<=35)
== END ==
LOC: REG 16:04
PROVIDERS: ATTENDING PHYSICIAN Internal Medicine Hematology & Oncology
DX: C25.3 Malignant neoplasm of pancreatic duct (principal); K86.81 Exocrine pancreatic insufficiency; L27.1 Localized skin eruption due to drugs and medicaments taken internally
CPT/HCPCS: 36415; 80053; 85025; 86301

== ENCOUNTER → 2025-02-18 18:03 | Outpatient (REF) | payer OTHER, SELFPAY | LOC: PAVMRI 18:03 | PROVIDERS: ATTENDING PHYSICIAN Nurse Practitioner Adult Health | DX: C25.3 Malignant neoplasm of pancreatic duct (principal); K86.81 Exocrine pancreatic insufficiency; L27.1 Localized skin eruption due to drugs and medicaments taken internally | CPT/HCPCS: 72157; A9575 ==

== ENCOUNTER → 2025-03-09 11:39 | Outpatient (REF) | payer OTHER, SELFPAY ==
[2025-03-09 13:07] LABS: Hematocrit 35.3 % (37.0-47.0); Hemoglobin 11.9 g/dL (12.0-16.0); Mean Corp Hgb Conc. 33.7 g/dL (33.0-37.0); Mean Corpuscular Volume 108.0 fL (81.0-99.0); Nucleated Red Blood Cells % 0 %; Platelet Count 147 10^3/uL (130-400); Red Cell Dist. Width 15.3 % (11.5-14.5)
[2025-03-09 14:01] LABS: ALT (SGPT) 15 U/L (0-35); AST (SGOT) 27 U/L (14-36); Albumin 3.9 g/dl (3.5-5.0); Alkaline Phosphatase 75 U/L (38-126); Blood Urea Nitrogen 7 mg/dl (7-17); Calcium 9.2 mg/dl (8.4-10.2); Carbon Dioxide 26 mmol/L (22-30); Chloride 103 mmol/L (98-107); Glucose 181 mg/dl (70-99); Potassium 5.1 mmol/L (3.5-5.1); Sodium 133 mmol/L (135-145); Total Protein 6.4 g/dl (6.3-8.2); eGFR > 60.00
== END ==
LOC: REG 11:39
PROVIDERS: ATTENDING PHYSICIAN Internal Medicine Hematology & Oncology
DX: C25.3 Malignant neoplasm of pancreatic duct (principal); K86.81 Exocrine pancreatic insufficiency; L27.1 Localized skin eruption due to drugs and medicaments taken internally; M54.6 Pain in thoracic spine
CPT/HCPCS: 36415; 80053; 85025

== ENCOUNTER → 2025-03-18 13:00 | Outpatient (REF) | payer OTHER, SELFPAY | LOC: REG 13:00 | PROVIDERS: ATTENDING PHYSICIAN Internal Medicine Hematology & Oncology | DX: C25.3 Malignant neoplasm of pancreatic duct (principal); K86.81 Exocrine pancreatic insufficiency; L27.1 Localized skin eruption due to drugs and medicaments taken internally; M54.6 Pain in thoracic spine; R19.7 Diarrhea, unspecified; Z12.11 Encounter for screening for malignant neoplasm of colon | CPT/HCPCS: 87324; 87449 ==

== ENCOUNTER → 2025-03-30 12:45 | Outpatient (REF) | payer OTHER, SELFPAY ==
[2025-03-30 14:23] LABS: Hematocrit 35.9 % (37.0-47.0); Hemoglobin 11.9 g/dL (12.0-16.0); Mean Corp Hgb Conc. 33.1 g/dL (33.0-37.0); Mean Corpuscular Volume 105.3 fL (81.0-99.0); Nucleated Red Blood Cells % 0 %; Platelet Count 145 10^3/uL (130-400); Red Cell Dist. Width 15.6 % (11.5-14.5)
[2025-03-30 15:00] LABS: ALT (SGPT) 43 U/L (0-35); AST (SGOT) 44 U/L (14-36); Albumin 4.2 g/dl (3.5-5.0); Alkaline Phosphatase 173 U/L (38-126); Blood Urea Nitrogen 7 mg/dl (7-17); Calcium 9.3 mg/dl (8.4-10.2); Carbon Dioxide 27 mmol/L (22-30); Chloride 96 mmol/L (98-107); Glucose 199 mg/dl (70-99); Potassium 5.0 mmol/L (3.5-5.1); Sodium 129 mmol/L (135-145); Total Protein 6.6 g/dl (6.3-8.2); eGFR > 60.00
[2025-04-01 15:12] LABS: TSH 1.28 uIU/ml (0.47-4.68)
[2025-04-01 19:19] LABS: CA 19-9 307 U/mL (<=35)
== END ==
LOC: REG 12:45
PROVIDERS: ATTENDING PHYSICIAN Internal Medicine Hematology & Oncology
DX: C25.3 Malignant neoplasm of pancreatic duct (principal); K86.81 Exocrine pancreatic insufficiency; L27.1 Localized skin eruption due to drugs and medicaments taken internally; M54.6 Pain in thoracic spine
CPT/HCPCS: 36415; 80053; 84443; 85025; 86301

== ENCOUNTER → 2025-04-29 13:11 | Outpatient (REF) | payer OTHER, SELFPAY ==
[2025-04-29 14:37] LABS: Hematocrit 38.1 % (37.0-47.0); Hemoglobin 12.5 g/dL (12.0-16.0); Mean Corp Hgb Conc. 32.8 g/dL (33.0-37.0); Mean Corpuscular Volume 104.4 fL (81.0-99.0); Nucleated Red Blood Cells % 0 %; Platelet Count 139 10^3/uL (130-400); Red Cell Dist. Width 16.2 % (11.5-14.5)
[2025-04-29 15:17] LABS: ALT (SGPT) 128 U/L (0-35); AST (SGOT) 199 U/L (14-36); Albumin 4.3 g/dl (3.5-5.0); Alkaline Phosphatase 412 U/L (38-126); Blood Urea Nitrogen 10 mg/dl (7-17); Calcium 9.4 mg/dl (8.4-10.2); Carbon Dioxide 30 mmol/L (22-30); Chloride 94 mmol/L (98-107); Glucose 411 mg/dl (70-99); Potassium 5.1 mmol/L (3.5-5.1); Sodium 127 mmol/L (135-145); Total Protein 6.9 g/dl (6.3-8.2); eGFR > 60.00
== END ==
LOC: REG 13:11
PROVIDERS: ATTENDING PHYSICIAN Internal Medicine Hematology & Oncology
DX: C25.3 Malignant neoplasm of pancreatic duct (principal); K86.81 Exocrine pancreatic insufficiency; L27.1 Localized skin eruption due to drugs and medicaments taken internally; M54.6 Pain in thoracic spine
CPT/HCPCS: 36415; 80053; 85025

== ENCOUNTER → 2025-05-04 12:57 | Outpatient (REF) | payer OTHER, SELFPAY ==
[2025-05-04 13:51] LABS: Hematocrit 39.3 % (37.0-47.0); Hemoglobin 13.0 g/dL (12.0-16.0); Mean Corp Hgb Conc. 33.1 g/dL (33.0-37.0); Mean Corpuscular Volume 105.1 fL (81.0-99.0); Nucleated Red Blood Cells % 0 %; Platelet Count 121 10^3/uL (130-400); Red Cell Dist. Width 16.8 % (11.5-14.5)
[2025-05-04 14:22] LABS: ALT (SGPT) 218 U/L (0-35); AST (SGOT) 221 U/L (14-36); Albumin 4.5 g/dl (3.5-5.0); Alkaline Phosphatase 498 U/L (38-126); Blood Urea Nitrogen 9 mg/dl (7-17); Calcium 9.6 mg/dl (8.4-10.2); Carbon Dioxide 26 mmol/L (22-30); Chloride 96 mmol/L (98-107); Glucose 344 mg/dl (70-99); Potassium 5.0 mmol/L (3.5-5.1); Sodium 127 mmol/L (135-145); Total Protein 7.4 g/dl (6.3-8.2); eGFR > 60.00
[2025-05-07 07:00] LABS: CA 19-9 634 U/mL (<=35)
== END ==
LOC: REG 12:57
PROVIDERS: ATTENDING PHYSICIAN Internal Medicine Hematology & Oncology
DX: C25.3 Malignant neoplasm of pancreatic duct (principal); K86.81 Exocrine pancreatic insufficiency; L27.1 Localized skin eruption due to drugs and medicaments taken internally; M54.6 Pain in thoracic spine
CPT/HCPCS: 36415; 80053; 85025; 86301

== ENCOUNTER → 2025-05-11 11:34 | Outpatient (REF) | payer OTHER, SELFPAY ==
[2025-05-11 13:52] LABS: Hematocrit 37.1 % (37.0-47.0); Hemoglobin 12.9 g/dL (12.0-16.0); Mean Corp Hgb Conc. 34.8 g/dL (33.0-37.0); Mean Corpuscular Volume 98.1 fL (81.0-99.0); Nucleated Red Blood Cells % 0 %; Platelet Count 92 10^3/uL (130-400); Red Cell Dist. Width 17.0 % (11.5-14.5)
[2025-05-11 14:35] LABS: ALT (SGPT) 159 U/L (0-35); AST (SGOT) 156 U/L (14-36); Albumin 4.6 g/dl (3.5-5.0); Alkaline Phosphatase 568 U/L (38-126); Blood Urea Nitrogen 7 mg/dl (7-17); Calcium 9.6 mg/dl (8.4-10.2); Carbon Dioxide 23 mmol/L (22-30); Chloride 94 mmol/L (98-107); Glucose 275 mg/dl (70-99); Potassium 4.8 mmol/L (3.5-5.1); Sodium 128 mmol/L (135-145); Total Protein 7.4 g/dl (6.3-8.2); eGFR > 60.00
[2025-05-11 14:38] LABS: Glycohemoglobin (HgbA1c) 8.5 % (4.0-5.9)
[2025-05-11 15:05] LABS: TSH 0.93 uIU/ml (0.47-4.68)
== END ==
LOC: RAD 11:34
PROVIDERS: ATTENDING PHYSICIAN Internal Medicine Hematology & Oncology; REFERRING PHYSICIAN Physician Assistant
DX: C25.3 Malignant neoplasm of pancreatic duct (principal); K86.81 Exocrine pancreatic insufficiency; L27.1 Localized skin eruption due to drugs and medicaments taken internally; M54.6 Pain in thoracic spine; R19.7 Diarrhea, unspecified
CPT/HCPCS: 36415; 74160; 80053; 83036; 84443; 85025; Q9967

== ENCOUNTER 2025-05-12 13:55 | Inpatient (IN) | payer OTHER, SELFPAY ==
[2025-05-12 11:03] VITALS: BP 104/68
[2025-05-12 11:43] LABS: INR 1.10; PT 14.3 Sec (11.4-14.6)
[2025-05-12 11:44] LABS: APTT 27.0 Sec (23.4-35.0)
[2025-05-12 11:53] LABS: Hematocrit 35.4 % (37.0-47.0); Hemoglobin 12.7 g/dL (12.0-16.0); Mean Corp Hgb Conc. 35.9 g/dL (33.0-37.0); Mean Corpuscular Volume 96.7 fL (81.0-99.0); Nucleated Red Blood Cells % 0 %; Platelet Count 128 10^3/uL (130-400); Red Cell Dist. Width 17.2 % (11.5-14.5)
[2025-05-12 11:54] LABS: ALT (SGPT) 158 U/L (0-35); AST (SGOT) 175 U/L (14-36); Albumin 4.5 g/dl (3.5-5.0); Alkaline Phosphatase 506 U/L (38-126); Blood Urea Nitrogen 8 mg/dl (7-17); Calcium 9.7 mg/dl (8.4-10.2); Carbon Dioxide 25 mmol/L (22-30); Chloride 96 mmol/L (98-107); Glucose 378 mg/dl (70-99); Potassium 5.6 mmol/L (3.5-5.1); Sodium 127 mmol/L (135-145); Total Protein 7.4 g/dl (6.3-8.2); eGFR > 60.00
--- NOTE | 2025-05-12 13:08 | ED.GENMED ---
History of Present Illness
<Edward Harley PA-C - Last Filed: 05/12/25 13:56>
General
Chief Complaint: Abdominal Pain
Source: patient and records
Time Seen by Provider: 05/12/25 12:48
History of Present Illness
History of Present Illness:
64-year-old female with past medical history of pancreatic cancer, hypertension, peripheral arterial disease presenting to the emergency department for evaluation after she had an outpatient CT scan done yesterday which showed increase in her
pancreatic tumor as well as biliary obstruction secondary to the tumor itself. Patient endorses increasing abdominal pain, diminished p.o. intake and significant weight loss over the last few weeks. She notes that she previously completed 8 rounds
of IV chemotherapy and currently takes daily oral chemotherapy but was told that this would need to be changed based off of her CT imaging from yesterday so she did not take this today. Patient denies any fevers, chills, rigors, nausea or vomiting.
Pain is currently a 6 out of 10. She has seen both [facility] here as well as GI here previously for her care.
Past History
<Edward Harley PA-C - Last Filed: 05/12/25 13:56>
Past History
ED Past Medical History: Cancer, HTN, Psychiatric and Other (PAD)
ED Past Surgical History: , Orthopedic and Other
Social History
Tobacco: Smoker
Alcohol: Binge drinker
Drug: None
Personal:
Living: with family
Review of Systems
<Edward Harley PA-C - Last Filed: 05/12/25 13:56>
Review of Systems
All Other Systems: ROS reviewed and negative except as documented in HPI and ROS
Phy Exam
<BILL Fuentes Last Filed: 05/12/25 13:56>
Physical Exam
Physical Exam:
GENERAL: Alert , in no apparent distress, thin, appears older than stated age
EYE: Icteric sclera
HEAD: NCAT
ENT: o/p clr, mmm.
CARDIAC: Regular rate and rhythm .
LUNGS: Clear breath sounds bilaterally, no acute respiratory distress, no wheezes/rales/rhonchi
ABDOMEN: Soft, generally tender, no r/g, no cvat
NEUROLOGICAL: Alert and oriented
SKIN: Warm and dry, skin intact.
MUSCULOSKELETAL: No edema, well perfused.
PSYCH: Normal and appropriate interaction.
Scores
<Edward Harley PA-C - Last Filed: 05/12/25 13:56>
Heart Failure Risk
Heart Failure Risk Score: Not Applicable
Heart Score for Chest Pain Patients
STEMI patient?: Not applicable
Withdrawal Assessment of Alcohol
Withdrawal Assessment Completed?: Not applicable
Course
<Edward Harley PA-C - Last Filed: 05/12/25 13:56>
Orders/Labs/Results
Orders:
Orders
05/12/25 11:13
Type And Crossmatch [Type+Screen] Urgent
Complete Blood Count/With Diff Urgent
Comprehensive Metabolic Panel Urgent
LFT [[id number]] Urgent
PTT Urgent
Prothrombin Time Urgent
05/12/25 13:09
IV Insert/Care/Rem.- Treatment PRN
HYDROmorphone [Dilaudid] 0.5 mg IV NOW STA
05/12/25 13:22
Admit/Transfer Patient As Directed
Co-Sign Provider:
Level of Care: Inpatient admission
Assign to:: Medical/Surgical
Physician / Group: shiela
Diagnosis: common bile duct obstruction
Reason for Hospitalization: common bile duct obstruction
Expected length of stay greater than two midnights?: Yes
ELOS- Estimated Length of Stay in days: 2
I certify the patient meets the requirements for IP care: Yes
PRN Pain Medication Management As Directed
May give lesser potent ordered pain med per pt: Yes
preference::
Protocol:: Medication orders for pain may be administered in a
manner that supports deferring to patient preference
when the pt is:
- Requesting an ordered lesser potent pain medication.
Least to most potent pain medications are defined
as: acetaminophen < NSAID < tramadol < opioids
(morphine, oxycodone, hydromorphone).
- Requesting a lesser dose of the same medication IF
ORDERED.
- Requesting a less intrusive route of administration
if both routes are prescribed by the provider (PO <
IV).
05/12/25 13:23
Code Status As Directed
Resuscitation Status: Full Code
05/12/25 13:29
Lactated Ringers [Lr] 1,000 ml IV BOLUS
Abnormal Lab Results
05/12/25
11:13
RBC 3.66 L 10^6/uL
(4.20-5.40)
Hct 35.4 L %
(37.0-47.0)
MCH 34.7 H pg
(27.0-31.0)
RDW 17.2 H %
(11.5-14.5)
Plt Count 128 L D 10^3/uL
(130-400)
MPV 12.0 H fL
(7.4-10.4)
Absolute Lymphs (auto) 1.0 L 10^3/uL
(1.2-3.4)
Lymphocytes % 16.0 L %
(20.5-51.1)
Monocytes % 9.4 H %
(1.7-9.3)
Sodium 127 L mmol/L
(135-145)
Potassium 5.6 H mmol/L
(3.5-5.1)
Chloride 96 L mmol/L
(98-107)
Creatinine 0.5 L mg/dL
(0.6-1.0)
Glucose 378 H mg/dl
(70-99)
Total Bilirubin 6.3 H mg/dl
(0.2-1.3)
Direct Bilirubin 4.6 H mg/dl
(0.0-0.4)
AST 175 H U/L
(14-36)
ALT 158 H U/L
(0-35)
Alkaline Phosphatase 506 H U/L
(38-126)
05/12/25 11:13
05/12/25 11:13
Vital Signs
Initial and Last Documented VS:
Initial Vital Signs
Temp Pulse Resp BP Pulse Ox
97.6 F 81 18 104/68 99
05/12/25 11:03 05/12/25 11:03 05/12/25 11:03 05/12/25 11:03 05/12/25 11:03
Last Documented Vital Signs
Temp Pulse Resp BP Pulse Ox
98.5 F 70 17 141/72 100
05/12/25 13:46 05/12/25 13:46 05/12/25 13:46 05/12/25 13:46 05/12/25 13:46
<Clinton Morrell, DO - Last Filed: 05/12/25 13:31>
Orders/Labs/Results
Orders:
Orders
05/12/25 11:13
Type And Crossmatch [Type+Screen] Urgent
Complete Blood Count/With Diff Urgent
Comprehensive Metabolic Panel Urgent
LFT [[id number]] Urgent
PTT Urgent
Prothrombin Time Urgent
05/12/25 13:09
IV Insert/Care/Rem.- Treatment PRN
HYDROmorphone [Dilaudid] 0.5 mg IV NOW STA
05/12/25 13:22
Admit/Transfer Patient As Directed
Co-Sign Provider:
Level of Care: Inpatient admission
Assign to:: Medical/Surgical
Physician / Group: shiela
Diagnosis: common bile duct obstruction
Reason for Hospitalization: common bile duct obstruction
Expected length of stay greater than two midnights?: Yes
ELOS- Estimated Length of Stay in days: 2
I certify the patient meets the requirements for IP care: Yes
PRN Pain Medication Management As Directed
May give lesser potent ordered pain med per pt: Yes
preference::
Protocol:: Medication orders for pain may be administered in a
manner that supports deferring to patient preference
when the pt is:
- Requesting an ordered lesser potent pain medication.
Least to most potent pain medications are defined
as: acetaminophen < NSAID < tramadol < opioids
(morphine, oxycodone, hydromorphone).
- Requesting a lesser dose of the same medication IF
ORDERED.
- Requesting a less intrusive route of administration
if both routes are prescribed by the provider (PO <
IV).
05/12/25 13:23
Code Status As Directed
Resuscitation Status: Full Code
05/12/25 13:29
Lactated Ringers [Lr] 1,000 ml IV BOLUS
Abnormal Lab Results
05/12/25
11:13
RBC 3.66 L 10^6/uL
(4.20-5.40)
Hct 35.4 L %
(37.0-47.0)
MCH 34.7 H pg
(27.0-31.0)
RDW 17.2 H %
(11.5-14.5)
Plt Count 128 L D 10^3/uL
(130-400)
MPV 12.0 H fL
(7.4-10.4)
Absolute Lymphs (auto) 1.0 L 10^3/uL
(1.2-3.4)
Lymphocytes % 16.0 L %
(20.5-51.1)
Monocytes % 9.4 H %
(1.7-9.3)
Sodium 127 L mmol/L
(135-145)
Potassium 5.6 H mmol/L
(3.5-5.1)
Chloride 96 L mmol/L
(98-107)
Creatinine 0.5 L mg/dL
(0.6-1.0)
Glucose 378 H mg/dl
(70-99)
Total Bilirubin 6.3 H mg/dl
(0.2-1.3)
Direct Bilirubin 4.6 H mg/dl
(0.0-0.4)
AST 175 H U/L
(14-36)
ALT 158 H U/L
(0-35)
Alkaline Phosphatase 506 H U/L
(38-126)
05/12/25 11:13
05/12/25 11:13
Vital Signs
Initial and Last Documented VS:
Initial Vital Signs
Temp Pulse Resp BP Pulse Ox
97.6 F 81 18 104/68 99
05/12/25 11:03 05/12/25 11:03 05/12/25 11:03 05/12/25 11:03 05/12/25 11:03
Last Documented Vital Signs
Temp Pulse Resp BP Pulse Ox
98.5 F 70 17 141/72 100
05/12/25 13:46 05/12/25 13:46 05/12/25 13:46 05/12/25 13:46 05/12/25 13:46
<Edward Harley PA-C - Last Filed: 05/12/25 13:56>
MDM/Problems Addressed
Differential Diagnosis Includes:
Known progression of pancreatic cancer
Less concern for infection
Elevated LFT 2/2 obstruction
MDM/Problems Addressed:
64-year-old female presenting to the ER at the request of her medical team for evaluation of progression of her pancreatic cancer now causing severe biliary obstruction. Patient endorsing moderate abdominal pain. Did not take anything for the pain
prior to arrival. Currently on oral chemotherapy. Will order IV Dilaudid for pain control. Will notify hospitalist team for admission, GI team as patient will likely need biliary stent as well as oncology team for further evaluation and
consultation.
Chronic conditions affecting care: Cancer
Acute Exacerbation and/or Progression of Chronic Illness: Cancer
<Edward Harley PA-C - Last Filed: 05/12/25 13:56>
*Pulse Oximetry
SaO2: 99
Oxygen Mode of Delivery: Room air
Patient hypoxic: no
*Critical Care Note
Total Time (30-74mins, 75-104mins- exclusive of procedures): Not Applicable
Data Reviewed
Review of Other/Old Records Reveals: Labs, Records and Radiology Studies
<Edward Harley PA-C - Last Filed: 05/12/25 13:56>
Patient Management
Discussion with other providers: Hospitalist and [employer] Operator
Escalation/DeEscalation of care consider admission/obs:
Hospitalist team to admit. GI and oncology to see in consultation.
ED Attending Note
<Edward Harley PA-C - Last Filed: 05/12/25 13:56>
-
Portions of this chart may have been created with voice recognition software.� Occasional wrong word or��sound alike� substitutions may have occurred due to the inherent limitations of voice recognition software.
<Clinton Morrell DO - Last Filed: 05/12/25 13:31>
ED Attending Note
Patient seen and examined by attending physician: Yes
ED Attending Note:
I have reviewed and agree with history treatment plan by Tye Harley PA-C. My exam revealed 64-year-old female and no acute distress, jaundice, scleral icterus. Patient more comfortable after receiving Dilaudid. Seen by hospitalist, who will
begin sliding scale insulin. Gastroenterology will see and place palliative stent
Discharge Plan
Departure
Patient Disposition: Admit
Date of Disposition: 05/12/25
Time of Disposition: 13:08
Presentation/result/management discussed w/ accepting MD/DO: Hospitalist
Discharge Problem:
Pancreatic cancer, Biliary obstruction
Prescriptions:
No Action
atenolol 25 MG tablet
25 mg PO BID
pregabalin [Lyrica] 300 mg Capsule
300 mg PO HS
clobetasol 0.05 % Cream
1 applic TOPICAL BID
lorazepam 0.5 mg Tablet
0.5 mg PO HS
ropinirole 0.25 mg Tablet
0.5 mg PO HS
oxycodone 5 mg Tablet
10 mg PO Q8H PRN (Reason: severe oain)
Rx Instructions:
pt reports they have been taking 2 5mg tablets every 4 hours - MKO
insulin glargine [Lantus Solostar U-100 Insulin] 100 unit/mL (3 mL) Insulin Pen
3 unit SC DAILY
Creon 36,000-114,000- 180,000 unit Capsule,Delayed Release(Dr/Ec)
3 cap PO AC
Creon 36,000-114,000- 180,000 unit Capsule,Delayed Release(Dr/Ec)
2 cap PO BID PRN (Reason: with snacks)
Interventions
Interventions:
*General Assessment Last Done: 05/12/25 13:42
*ED COVID-19 Vaccine History Last Done: 05/12/25 13:42
*ED Influenza Vaccine History Last Done: 05/12/25 13:42
[facility] Fall Risk Assessment Tool Last Done: 05/12/25 13:42
IU-Ukyczo-Xzagyrvcqf Assessment Last Done: 05/12/25 13:42
Discharge Date and Time
Print Language: YAKUT
--- NOTE | 2025-05-12 13:13 | CON.GI ---
Addendum entered and electronically signed by Nick Qureshi MD 05/12/25 18:24:
I saw and examined the patient.
The PA's note was reviewed and I agree with the note.
Comment:
64 year old female well known to me p/w jaundice and elevated LFT in setting of pancreatic adenocarcinoma in the body of panc diagnosed in 2022. She was seen by Dr. Huerta at [facility] and was determined not a surgical candidate, has been on palliative
chemo since. Also had cyberknife RTX. Presenting with abdo pain, elevated LFT, jaundice, and CT showing IH/EH biliary dilation. Will need palliative biliary decompression, will plan for ERCP on . Replete electrolytes in the mean time.
Given her advanced pancreatic adenocarcinoma, there is risk for difficult ERCP, may need EUS guided access. I also discussed possible celiac neurolysis for her cancer pain in the future.
Original Note:
Consultation
-
Date/Time Consultation Requested: 05/12/25 1310
Date/Time Consultation Performed: 05/12/25 1315
Requesting Provider: Edward Harley PA-C
Performing Provider: BRIAN Díaz, Nick Qureshi MD
Reason for Consultation: abnormal imaging
Medical History
Chief Complaint / HPI
History of Present Illness:
Pt is a 64yo with hx prior back surgery, HTN, , neuropathy, restless leg syndrome, PAD, carotid stenosis, newly diagnosed diabetes on insulin and pancreatic CA diagnosed in 2022 presents to ER as had OP CT scan 05/11 with concern for
severe CBD obstruction with intra and extrahepatic biliary dilatation with concern for infiltrative malignancy encasing and obstructing CBD superior to pancreatic head. Malignancy in noted to be encasing SMA with complete thrombosis of SMV and
splenic vein with collateral varices and severe distended gallbladder.
In review with patient she was diagnosed in 2022 with pancreatic cancer. After diagnosis she went to [place] but was not a surgical consult. She has seen been followed with Dr. Keller with completing 8 rounds of chemo and cyber radiation at
[facility]. She recently has been on Xeloda. She now presents with several weeks of worsening Jaundice, pain, decreased appetite and rise in LFT's and abnormal imaging. She has not needed any biliary intervention in past. On admission she
is noted with WBC 6,2, hbg 12,7, platelets 128, INR 1.1, Na 127, K 5.6, bili 6.3, d bili 4.6, ASt 175, ALT 158, alk phos 506. Pt admits to wt loss of 8 lbs in 1 month. She has nausea without vomiting, upper abdominal pain that is worse with
eating better with fasting. She had chronic diarrhea with use of Imodium and pepto prior to admission and recent dark urine over last 2 weeks. She otherwise denies fever, constipation, or rectal bleeding.
Past Medical History
Past Medical History: Cancer (pancreatic CA ), HTN, IDDM (newly diagnosed started insulin several days ago) and Other (neuropathy, restless leg syndrome, carotid stenosis, PAD)
Past Surgical History: , Orthopedic (spinal fusion, epidurals) and Other (aorto bi iliac bypass )
Social History
Tobacco: Former Smoker (quit years ago)
Alcohol: None
Drug: None
Personal:
Living: Alone
Family History
Family History: Other (sister with hx nodular pancreas)
Allergies / Home Medications
Allergy/AdvReac Type Severity Reaction Status Date / Time
hydrocodone (From Vicodin) Allergy Itching Verified 05/12/25 11:03
lisinopril Allergy TACHYCARDIA Verified 05/12/25 11:03
Sulfa (Sulfonamide Allergy Itching, Verified 05/12/25 11:03
Antibiotics) hives
sulfamethoxazole Allergy Itching, Verified 05/12/25 11:03
hives
trimethoprim Allergy Itching, Verified 05/12/25 11:03
hives
�Medication �Instructions �Recorded
atenolol 25 mg tablet 25 mg PO HS Blood pressure 05/27/20
pregabalin 300 mg capsule (Lyrica) 300 mg PO HS 01/30/25
ropinirole 0.5 mg tablet 0.5 mg PO HS 01/30/25
Basic metabolic panel #1 ea 02/02/25
cefuroxime axetil 500 mg tablet 500 mg PO BID #8 tabs 02/02/25
oxycodone 10 mg tablet 10 mg PO Q4HPRN PRN severe pain 02/02/25
first #7 tabs
Review of Systems
-
History Source: Patient
Constitutional: Reports Weight Loss and Fatigue
EENT: Reports No Symptoms
Respiratory: Reports No Symptoms
Cardiac: Reports No Symptoms
Abdomen/GI: Reports Abdominal Pain and Nausea
: Reports Dark Urine
Musculoskeletal: Reports No Symptoms
Skin: Reports No Symptoms
Neurological: Reports Weakness
Endocrine: Reports No Symptoms
Hematologic/Lymphatic: Reports No Symptoms
Vital Signs
Temp Pulse Resp BP Pulse Ox
97.6 F 81 18 104/68 99
05/12/25 11:03 05/12/25 11:03 05/12/25 11:03 05/12/25 11:03 05/12/25 13:09
Physical Exam
Exam
General: Well Developed, Well Nourished and Other (thin )
HEENT: Other (jaundice )
Respiratory: Clear
Cardiac: Regular Rhythm
GI: Soft, Non Distended and Tender (epigastric )
Musculoskeletal: No Clubbing and No Cyanosis
Skin: Warm and Dry
Neuro: Awake, Alert and AO x 3
Psych: Calm
Results
WBC 6.2 10^3/uL (4.8-10.8) 05/12/25 11:13
Hgb 12.7 g/dL (12.0-16.0) 05/12/25 11:13
Hct 35.4 % (37.0-47.0) L 05/12/25 11:13
MCV 96.7 fL (81.0-99.0) 05/12/25 11:13
Plt Count 128 10^3/uL (130-400) L D 05/12/25 11:13
Absolute Neuts (auto) 4.5 10^3/uL (1.4-6.5) 05/12/25 11:13
PT 14.3 Sec (11.4-14.6) 05/12/25 11:13
INR 1.10 05/12/25 11:13
APTT 27.0 Sec (23.4-35.0) 05/12/25 11:13
Sodium 127 mmol/L (135-145) L 05/12/25 11:13
Potassium 5.6 mmol/L (3.5-5.1) H 05/12/25 11:13
Chloride 96 mmol/L (98-107) L 05/12/25 11:13
Carbon Dioxide 25 mmol/L (22-30) 05/12/25 11:13
BUN 8 mg/dl (7-17) 05/12/25 11:13
Creatinine 0.5 mg/dL (0.6-1.0) L 05/12/25 11:13
Calcium 9.7 mg/dl (8.4-10.2) 05/12/25 11:13
Total Bilirubin 6.3 mg/dl (0.2-1.3) H 05/12/25 11:13
AST 175 U/L (14-36) H 05/12/25 11:13
ALT 158 U/L (0-35) H 05/12/25 11:13
Alkaline Phosphatase 506 U/L (38-126) H 05/12/25 11:13
Diagnostic Image Results:
05/11/25 CT Abdomen With Iv Contrast
1. SEVERE COMMON BILE DUCT OBSTRUCTION with severe intrahepatic and proximal extrahepatic biliary dilatation (probably secondary to infiltrative malignancy encasing and obstructing the common bile duct superior to the pancreatic head).
2. Interval progression of EXTENSIVE INFILTRATIVE PANCREATIC MALIGNANCY in the pancreatic body extending superiorly and medially into the alize hepatis and posteriorly into the retroperitoneum.
3. 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
4. 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
5. Severely distended gallbladder.
6. Aortobiiliac graft in place.
7. Severe discogenic degenerative disease at L5/S1.
8. Previous bilateral posterior instrumentation at L4/L5.
04/09/25 PT Pet Wbi W/CT Skull-thigh
Status post partial pancreatectomy. Small hypodense mass adjacent to the pancreatic surgical resection margin which could represent complex cyst/pseudocyst or postsurgical seroma.
Small focus of increased metabolic activity at the junction between the mass and adjacent stomach, which appears to be associated more with the gastric margin as opposed to the mass. There is also mild patchy FDG activity at the margin of the mass.
The possibility of local recurrence and/or direct invasion of the adjacent stomach cannot be excluded. Consider further evaluation/follow-up endoscopic ultrasound.
Subtle indistinct FDG activity seen previously in the pancreatic head along the right lateral margin is not reproduced on the current examination.
Patchy, heterogeneous increased FDG activity has developed along the left lateral margin of the pancreatic head. These could represent metastatic lymph nodes immediately adjacent to and contiguous with the pancreas, difficult to differentiate from
the pancreatic parenchyma.
Moderate distention of the gallbladder. Progressive distention of the common hepatic duct. Cannot exclude ductal obstruction. Recommend correlation with liver function tests. Consider further evaluation/follow-up MRI with MRCP.
09/2022 -[facility] EUS - A likely mass was identified in the pancreatic body
and pancreatic tail. Fine needle aspiration performed.
- Two cystic lesions were seen in the pancreatic body
in the same mass-like area. Fine needle aspiration for
fluid performed.
- There was no sign of significant pathology in the
common bile duct.
- There was no evidence of significant pathology in
the left lobe of the liver. bx + adeno CA
09/2022- EGD - Z-line irregular.
- No gross lesions in the entire stomach.
- Normal duodenal bulb, first portion of the duodenum
and second portion of the duodenum.
- No specimens collected.
09/2022- colonoscopy - The examined portion of the ileum was normal.
- One 5 mm polyp in the sigmoid colon, removed with a
cold snare. Resected and retrieved. Clip was placed.
- Diverticulosis in the sigmoid colon.
- Internal hemorrhoids.
- The examination was otherwise normal.
- Biopsies were taken with a cold forceps from the
right colon and left colon for evaluation of
microscopic colitis.
Assessment / Plan
-
Pt is a 64yo with hx prior back surgery, HTN, , neuropathy, restless leg syndrome, PAD, carotid stenosis, newly diagnosed diabetes on insulin and pancreatic CA diagnosed in 2022 presents to ER as had OP CT scan 05/11 with concern for
severe CBD obstruction with intra and extrahepatic biliary dilatation with concern for infiltrative malignancy encasing and obstructing CBD superior to pancreatic head. Malignancy in noted to be encasing SMA with complete thrombosis of SMV and
splenic vein with collateral varices and severe distended gallbladder. In review with patient she was diagnosed in 2022 with pancreatic cancer. After diagnosis she went to [place] but was not a surgical consult. She has seen been followed
with Dr. Keller with completing 8 rounds of chemo and cyber radiation at [facility]. She recently has been on Xeloda. She now presents with several weeks of worsening Jaundice, pain, decreased appetite and rise in LFT's and abnormal imaging.
She has not needed any biliary intervention in past. On admission she is noted with WBC 6,2, hbg 12,7, platelets 128, INR 1.1, Na 127, K 5.6, bili 6.3, d bili 4.6, ASt 175, ALT 158, alk phos 506. Pt admits to wt loss of 8 lbs in 1 month. She
has nausea without vomiting, upper abdominal pain that is worse with eating better with fasting. She had chronic diarrhea with use of Imodium and pepto prior to admission and recent dark urine over last 2 weeks. No anticoagulation prior to
admission.
-metastatic pancreatic CA s/p chemo and radiation on Xeloda therapy prior to admission
-rise in LFT's with abnormal CT with concern for severe obstruction of CBD with intra and extrahepatic biliary dilatation with concern for infiltrative malignancy encasing and obstructing CBD superior to pancreatic head -SMA encasement with
thrombosis of SMV
-hyperkalemia
-hyponatremia
-chronic diarrhea
-mild thrombocytopenia
-newly diagnosed DM on Insulin prior to admission
other med problems:
prior back surgery, HTN, , neuropathy, restless leg syndrome, PAD, carotid stenosis
PLAN:
etiology of symptoms with concern for biliary obstruction secondary to known pancreatic CA
will review imaging with Dr. Qureshi for any intervention and timing
currently NPO last oral diet 9:30 AM today
last Xeloda 05/11
cont to correct electrolytes with Na 127, K 5.6
trend labs
antiemetics/pain control per hospitalist
t/c pancreatic enzymes with chronic diarrhea
will follow
-
-
Thank you for consultation and allowing me to participate in the patient's care. Please call the [employer] GI physician during the after hours with any questions or concerns.
--- NOTE | 2025-05-12 13:25 | HPS.HSE ---
Family Physician
-
Family Physician:
Chief Complaint
-
abdominal pain
History of Present Illness
64-year-old female past medical history of pancreatic cancer on maintenance chemotherapy, hypertension, neuropathy, restless leg syndrome, hyponatremia, hypercholesteremia, chronic back pain, presenting with increasing abdominal pain for the past
few months, ongoing diarrhea, weakness and weight loss. No fevers.
She saw her oncologist few days prior had CT abdomen pelvis which showed worsening malignancy.
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
She does not smoke or drink alcohol.
Medical History
Past Medical History
Past Medical History: Reports Other (pancreatic cancer on maintenance chemotherapy, hypertension, neuropathy, restless leg syndrome, hyponatremia, hypercholesteremia, chronic back pain)
Past Surgical History: Reports None
Social History
Tobacco: Non-smoker
Alcohol: None
Drug: None
Family History
Family History: Not pertinent
Allergies / Home Medications
Allergies reflects when Allergies were last updated in [facility].
Home Medications with original date entered in [facility]
Allergy/Medication List:
Allergies
Allergy/AdvReac Type Severity Reaction Status Date / Time
hydrocodone (From Vicodin) Allergy Itching Verified 05/12/25 11:03
lisinopril Allergy TACHYCARDIA Verified 05/12/25 11:03
Sulfa (Sulfonamide Allergy Itching, Verified 05/12/25 11:03
Antibiotics) hives
sulfamethoxazole Allergy Itching, Verified 05/12/25 11:03
hives
trimethoprim Allergy Itching, Verified 05/12/25 11:03
hives
Home Medications
atenolol 25 mg tablet 25 mg PO HS Blood pressure 05/27/20
pregabalin 300 mg capsule (Lyrica) 300 mg PO HS 01/30/25
ropinirole 0.5 mg tablet 0.5 mg PO HS 01/30/25
cefuroxime axetil 500 mg tablet 500 mg PO BID #8 tabs 02/02/25
oxycodone 10 mg tablet 10 mg PO Q4HPRN PRN severe pain first #7 tabs 02/02/25
Review of Systems
-
History Source: Patient
A 12 point ROS was completed and negative except as noted: Yes
Constitutional: Reports No Symptoms
EENT: Reports No Symptoms
Respiratory: Reports No Symptoms
Cardiac: Reports No Symptoms
Abdomen/GI: Reports No Symptoms
: Reports No Symptoms
Musculoskeletal: Reports No Symptoms
Skin: Reports No Symptoms
Neurological: Reports No Symptoms
Endocrine: Reports No Symptoms
Hematologic/Lymphatic: Reports No Symptoms
Psych: Reports No Symptoms
Physical Exam
Vital Signs
Vital Signs
Temp Pulse Resp BP Pulse Ox
97.6 F 81 18 104/68 99
05/12/25 11:03 05/12/25 11:03 05/12/25 11:03 05/12/25 11:03 05/12/25 13:09
Physical Exam
General: Well Developed, Well Nourished and No Apparent Distress
HEENT: NormoCephalic, Moist mucous membranes and Atraumatic
Respiratory: Clear
Cardiac: S1/S2 and Regular Rhythm; No Murmur or Rub
GI: Soft, Non Tender, Non Distended and Normal Bowel Sounds; No Organomegaly
Rectal: Deferred by Provider
Musculoskeletal: No Clubbing, No Cyanosis and No Edema
Skin: No Rash
Neuro: Nonfocal/grossly intact
Laboratory Results
-
05/12/25 11:13
05/12/25 11:13
Laboratory Results
PT 14.3 Sec (11.4-14.6) 05/12/25 11:13
INR 1.10 05/12/25 11:13
APTT 27.0 Sec (23.4-35.0) 05/12/25 11:13
Total Bilirubin 6.3 mg/dl (0.2-1.3) H 05/12/25 11:13
AST 175 U/L (14-36) H 05/12/25 11:13
ALT 158 U/L (0-35) H 05/12/25 11:13
Alkaline Phosphatase 506 U/L (38-126) H 05/12/25 11:13
Data Reviewed
-
Lab Data: Labs Reviewed by me
Old Records: Reviewed
Impression/Plan
-
IMPRESSION:
PLAN:
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
# Thrombosis of superior mesenteric vein/splenic vein
-LFTs in the 100s, total bilirubin 6.3
- CT abdomen pelvis from yesterday shows severe common bile duct obstruction with severe intrahepatic proximal extrahepatic biliary dilatation, extensive infiltrative pancreatic malignancy in the pancreatic body extending superiorly medially into
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
- GI consulted for consideration of palliative stent
- Zofran, Dilaudid
Pancreatic cancer
- On oral chemotherapy
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
- Blood sugar 378
- A1c 8.5
-Continue Lantus 3 units
- Insulin sliding scale
Essential hypertension
Neuropathy
Restless leg syndrome
- Continue ropinirole, pregabalin
Chronic hyponatremia
- Sodium stable 127
Hypercholesteremia
Chronic back pain
DNR/DNI
DVT prophylaxis heparin
Diabetic diet
[2025-05-12] MEDS: DILAUDID 0.5 MG IV ×3 (13:26→22:47)
[2025-05-12] MEDS: LR 1000 IV (13:31)
[2025-05-12 13:42] VITALS: BMI 17.3
[2025-05-12 13:46] VITALS: BP 141/72
[2025-05-12 14:53] LABS: Glucose - Point of Care 313 mg/dl (70-99)
[2025-05-12 17:00] VITALS: BP 135/76
[2025-05-12 17:12] VITALS: BP 148/69
[2025-05-12 17:12] LABS: Glucose - Point of Care 268 mg/dl (70-99)
[2025-05-12] MEDS: NOVOLOG FLEXPEN-LOW RESISTANCE 3 UNITS SC (18:21)
[2025-05-12] MEDS: HEPARIN 5000 UNITS SC (20:25)
[2025-05-12 21:45] LABS: Glucose - Point of Care 260 mg/dl (70-99)
[2025-05-12 23:47] VITALS: BP 145/66
[2025-05-13] MEDS: DILAUDID 0.5 MG IV ×6 (02:57→21:33)
[2025-05-13] MEDS: ZOFRAN 4 MG IV ×2 (02:58→09:57)
[2025-05-13 07:55] VITALS: BP 134/58
[2025-05-13 08:16] LABS: Glucose - Point of Care 182 mg/dl (70-99)
[2025-05-13] MEDS: NOVOLOG FLEXPEN-LOW RESISTANCE 1 UNITS SC (08:34)
[2025-05-13] MEDS: HEPARIN 5000 UNITS SC ×2 (08:35→21:20)
[2025-05-13] MEDS: LANTUS 0.03 UNITS SC (08:41)
[2025-05-13 08:52] LABS: Hematocrit 34.3 % (37.0-47.0); Hemoglobin 12.4 g/dL (12.0-16.0); Mean Corp Hgb Conc. 36.2 g/dL (33.0-37.0); Mean Corpuscular Volume 96.1 fL (81.0-99.0); Nucleated Red Blood Cells % 0 %; Platelet Count 120 10^3/uL (130-400); Red Cell Dist. Width 17.2 % (11.5-14.5)
[2025-05-13 10:09] LABS: ALT (SGPT) 160 U/L (0-35); AST (SGOT) 146 U/L (14-36); Albumin 4.1 g/dl (3.5-5.0); Alkaline Phosphatase 543 U/L (38-126); Blood Urea Nitrogen 6 mg/dl (7-17); Calcium 9.3 mg/dl (8.4-10.2); Carbon Dioxide 24 mmol/L (22-30); Chloride 100 mmol/L (98-107); Estimated Creatinine Clearance 72 ml/min; Glucose 163 mg/dl (70-99); Potassium 4.3 mmol/L (3.5-5.1); Sodium 130 mmol/L (135-145); Total Protein 7.0 g/dl (6.3-8.2); eGFR > 60.00
--- NOTE | 2025-05-13 12:35 | W.PN.HOSP.TC ---
Addendum entered and electronically signed by Carson Gracia MD 05/13/25 17:05:
Per Dr. Keller from hematology, will need anticoagulation. Discussed with GI and will start anticoagulation after ERCP.
Original Note:
Today's Communication/Plan
-
Monitor vitals
See plan
GI following
Plan for ERCP 05/14
Pain control
Monitor LFTs
Assessment / Plan
Assessment / Plan
General: Well Developed, Well Nourished and No Apparent Distress
HEENT: NormoCephalic, Moist mucous membranes and Atraumatic
Respiratory: Clear
Cardiac: S1/S2 and Regular Rhythm; No Murmur or Rub
GI: Soft, Tender, Non Distended and Normal Bowel Sounds
Musculoskeletal:No Edema
Neuro: Nonfocal/grossly intact
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
# Thrombosis of superior mesenteric vein/splenic vein
Was not surgical candidate during diagnosis. Received chemo, radiation.
-LFTs in the 100s, total bilirubin 6.3
- CT abdomen pelvis from yesterday shows severe common bile duct obstruction with severe intrahepatic proximal extrahepatic biliary dilatation, extensive infiltrative pancreatic malignancy in the pancreatic body extending superiorly medially into
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
-Dr. Keller with CT results, awaiting decision regarding anticoagulation
- GI consulted for consideration of palliative stent
- Zofran, Dilaudid
Recent CA [phone]
Pancreatic cancer
- On oral chemotherapy
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
- A1c 8.5
-Continue Lantus 3 units
- Insulin sliding scale
Elevated LFTs
Likely secondary to malignancy, monitor
Essential hypertension
Currently normotensive, hold atenolol for now
Neuropathy
Restless leg syndrome
- Continue ropinirole, pregabalin
Chronic hyponatremia
monitor
Hypercholesteremia
Chronic back pain
DNR/DNI
DVT prophylaxis heparin
I spent a total of 52 minutes with the patient or on the floor. More than 50% of this time involved counseling and coordination of care.
Anticipated Discharge: 24 - 48 hours
Subjective/Interval History
-
Date of Service: May 13, 2025
Has pain
Objective Data
-
Labs:
Laboratory Results
05/13/25
07:33
WBC 4.1 L
Hgb 12.4
Hct 34.3 L
Plt Count 120 L
Sodium 130 L
Potassium 4.3
Chloride 100
Carbon Dioxide 24
BUN 6 L
Creatinine 0.5 L
Glucose 163 H
Calcium 9.3
Total Bilirubin 5.9 H
AST 146 H
ALT 160 H
Alkaline Phosphatase 543 H
Vital Signs:
Vital Signs
Temp Pulse Resp BP Pulse Ox
98.1 F 71 16 134/58 93
05/13/25 07:55 05/13/25 07:55 05/13/25 07:55 05/13/25 07:55 05/13/25 07:55
[2025-05-13 13:16] LABS: Glucose - Point of Care 296 mg/dl (70-99)
[2025-05-13] MEDS: ROXICODONE 5 MG PO (13:30)
[2025-05-13] MEDS: NOVOLOG FLEXPEN-LOW RESISTANCE 3 UNITS SC ×2 (13:30→18:00)
--- NOTE | 2025-05-13 13:46 | W.PN.GI.CBS2 ---
Addendum entered and electronically signed by Baudilio Baeza MD 05/13/25 14:19:
I saw and examined the patient.
The [employer] or PA's note was reviewed and I agree with the note.
Comment: c/o abd pain managed with pain meds
ABD soft mild tender
REC:
Plan for ERCP stent placement tomorrow for biliary decompression
LFTs unchanged, bili down a bit to 5.9
Cont pain meds per Hospitalists
Original Note:
Today's Communication / Plan
-
etiology of symptoms with concern for biliary obstruction secondary to known pancreatic CA
plan for palliative biliary decompression with Dr. Qureshi 05/14 ERCP and may need EUS guided access
cont ADA diet then NPO in AM
last Xeloda 05/11
cont to correct electrolytes with some improvement today
trend labs
antiemetics/pain control per hospitalist
cont pancreatic enzymes with chronic diarrhea
friend updated at bedside
Assessment / Plan
-
Pt is a 64yo with hx prior back surgery, HTN, , neuropathy, restless leg syndrome, PAD, carotid stenosis, newly diagnosed diabetes on insulin and pancreatic CA diagnosed in 2022 presents to ER as had OP CT scan 05/11 with concern for
severe CBD obstruction with intra and extrahepatic biliary dilatation with concern for infiltrative malignancy encasing and obstructing CBD superior to pancreatic head. Malignancy in noted to be encasing SMA with complete thrombosis of SMV and
splenic vein with collateral varices and severe distended gallbladder. In review with patient she was diagnosed in 2022 with pancreatic cancer. After diagnosis she went to [place] but was not a surgical consult. She has seen been followed
with Dr. Keller with completing 8 rounds of chemo and cyber radiation at [facility]. She recently has been on Xeloda. She now presents with several weeks of worsening Jaundice, pain, decreased appetite and rise in LFT's and abnormal imaging.
She has not needed any biliary intervention in past. On admission she is noted with WBC 6,2, hbg 12,7, platelets 128, INR 1.1, Na 127, K 5.6, bili 6.3, d bili 4.6, ASt 175, ALT 158, alk phos 506. Pt admits to wt loss of 8 lbs in 1 month. She
has nausea without vomiting, upper abdominal pain that is worse with eating better with fasting. She had chronic diarrhea with use of Imodium and pepto prior to admission and recent dark urine over last 2 weeks. No anticoagulation prior to
admission.
-metastatic pancreatic CA s/p chemo and radiation on Xeloda therapy prior to admission
-rise in LFT's with abnormal CT with concern for severe obstruction of CBD with intra and extrahepatic biliary dilatation with concern for infiltrative malignancy encasing and obstructing CBD superior to pancreatic head -SMA encasement with
thrombosis of SMV
-hyperkalemia
-hyponatremia
-chronic diarrhea
-mild thrombocytopenia
-newly diagnosed DM on Insulin prior to admission
other med problems:
prior back surgery, HTN, , neuropathy, restless leg syndrome, PAD, carotid stenosis
PLAN:
etiology of symptoms with concern for biliary obstruction secondary to known pancreatic CA
plan for palliative biliary decompression with Dr. Qureshi 05/14 ERCP and may need EUS guided access
cont ADA diet then NPO in AM
last Xeloda 05/11
cont to correct electrolytes with some improvement today
trend labs
antiemetics/pain control per hospitalist
cont pancreatic enzymes with chronic diarrhea
Subjective
Subjective
Date of Service: May 13, 2025
on ADA diet, no stools, still with ongoing abdominal pain
Objective
Data Reviewed
Laboratory Data:
Laboratory Results
05/13/25 07:33
05/13/25 07:33
Laboratory Results
PT 14.3 Sec (11.4-14.6) 05/12/25 11:13
INR 1.10 05/12/25 11:13
APTT 27.0 Sec (23.4-35.0) 05/12/25 11:13
Total Bilirubin 5.9 mg/dl (0.2-1.3) H 05/13/25 07:33
AST 146 U/L (14-36) H 05/13/25 07:33
ALT 160 U/L (0-35) H 05/13/25 07:33
Alkaline Phosphatase 543 U/L (38-126) H 05/13/25 07:33
Vital Signs and I&O:
Vital Signs
Temp Pulse Resp BP Pulse Ox
98.1 F 71 16 134/58 93
05/13/25 07:55 05/13/25 07:55 05/13/25 07:55 05/13/25 07:55 05/13/25 07:55
Physical Exam
Physical Exam
HEENT: Other (jaundice)
Cardiology: Normal Sinus Rhythm
Pulmonary: Clear
GI: Soft and Tender (epgastric no guarding )
Neuro: Non Focal
--- NOTE | 2025-05-13 14:44 | PN.CDI ---
CDI
- -
CDI:
Physician Documentation Request
Admit Date: 05/12/25 13:55
Dear Doctor Basil,
Please review the following and provide your response in the progress notes.
Clinical Indicators:
Height: 5'6
Weight: 107 lbs
BMI: 17.3
Other Clinical Notes: per H&P 'ongoing diarrhea, weakness and weight loss'
If possible, please provide an associated diagnosis related to the abnormal BMI, such as:
Underweight
Cachectic
Other (please specify)
Use of terms such as suspected, likely, concern for, or probable (associated with a specific diagnosis that is being evaluated, monitored, or treated as if it exists) are acceptable and can be coded in the inpatient setting, when documented at the
time of discharge.
Thank you,
Jennifer Pineda RN
CDI Specialist
Please use your independent medical judgment in providing your response.
[2025-05-13 15:11] VITALS: BMI 17.3
[2025-05-13 15:36] VITALS: BP 167/75
--- NOTE | 2025-05-13 15:40 | PTCARENOTE ---
05/13/2025 DIABETES EDUCATION CONSULT
I met with patient to review diabetes management. She was getting labs for pancreatic cancer on 05/04/2025 and her BS was in the 400's, she was seen by Austen German after and prescribed 3 units Lantus and Eleno 3+ CGM placed on arm. She is IP for
bile duct surgery
I reinforced signs of hyperglycemia, hypoglycemia and hypoglycemia protocol; BS parameters and recommended HbA1c goals, glucometer and CGM instructions, glucose tracker, medic alert bracelet and outpatient DSME program. Written material provided.
Reviewed her CGM andi with her, advised her to not sleep on L. arm where Eleno is placed to avoid a false compression low. Discussed double checking CGM with fingerstick to validate CGM results.
I provided patient with a [employer] glucometer sample kit. Provided verbal instructions on proper blood sugar testing technique, and demonstration with patient�s participation. I educated and demonstrated on insulin injection technique,
timing, and storage. Discussed long and short acting insulin; onset/peak/duration, and encouraged her to administer self injections with RN supervision while admitted. Discussed normal target glucose ranges and a monitoring schedule 15 minutes
before each meal when prescribed Novolog, and before bedtime.
She has an appointment with Austen German in May, she plans to call closer to discharge to facilitate an earlier appointment for medication management.
Will request test strips and lancets on order from [facility]. Asked patient to contact us with any questions or concerns post discharge.
--- NOTE | 2025-05-13 16:21 | CM ---
Initial assessment completed with patient who lives alone in a 2 story plus basement home with B/B on 2nd and 1/2 bath on 1st. [employer] patient was independent in ADL's and ambulation, drives. Has a RW and SPC in the home but does not use. No in-home
services. Does have HC-POA. No VA benefits. No psychiatric hospitalizations. No PCP. Pharmacy is [facility] in [place]. Discharge POC: Anticipate home with no needs.
[2025-05-13 17:32] LABS: Glucose - Point of Care 289 mg/dl (70-99)
[2025-05-13] MEDS: ZENPEP DELAYED RELEASE CAPSULE 3 CAPSULE PO (18:32)
[2025-05-13] MEDS: CLOBETASOL PROPIONATE 0.05% CREAM 1 APPLIC TOPICAL (21:20)
[2025-05-13 21:21] LABS: Glucose - Point of Care 281 mg/dl (70-99)
[2025-05-13] MEDS: LYRICA 300 MG PO (21:24)
[2025-05-13] MEDS: REQUIP 0.5 MG PO (21:25)
[2025-05-13] MEDS: ATIVAN 0.5 MG PO (21:25)
[2025-05-13 23:10] VITALS: BP 153/69
[2025-05-14] VITALS (11 sets, daily range): BP systolic 123–172; BP diastolic 65–87
[2025-05-14] MEDS: DILAUDID 0.5 MG IV ×6 (00:55→23:12)
[2025-05-14 08:40] LABS: Glucose - Point of Care 172 mg/dl (70-99)
[2025-05-14 08:56] LABS: Hematocrit 34.9 % (37.0-47.0); Hemoglobin 11.9 g/dL (12.0-16.0); Mean Corp Hgb Conc. 34.1 g/dL (33.0-37.0); Mean Corpuscular Volume 98.6 fL (81.0-99.0); Nucleated Red Blood Cells % 0 %; Platelet Count 124 10^3/uL (130-400); Red Cell Dist. Width 17.5 % (11.5-14.5)
[2025-05-14 09:29] LABS: ALT (SGPT) 162 U/L (0-35); AST (SGOT) 133 U/L (14-36); Albumin 4.0 g/dl (3.5-5.0); Alkaline Phosphatase 457 U/L (38-126); Blood Urea Nitrogen 5 mg/dl (7-17); Calcium 9.3 mg/dl (8.4-10.2); Carbon Dioxide 27 mmol/L (22-30); Chloride 100 mmol/L (98-107); Estimated Creatinine Clearance 72 ml/min; Glucose 181 mg/dl (70-99); Potassium 4.9 mmol/L (3.5-5.1); Sodium 132 mmol/L (135-145); Total Protein 6.5 g/dl (6.3-8.2); eGFR > 60.00
[2025-05-14] MEDS: ZENPEP DELAYED RELEASE CAPSULE PO ×3 (09:29→17:32)
[2025-05-14] MEDS: CLOBETASOL PROPIONATE 0.05% CREAM TOPICAL ×2 (09:29→21:15)
[2025-05-14] MEDS: LANTUS 0.03 UNITS SC (09:34)
[2025-05-14] MEDS: NOVOLOG FLEXPEN-LOW RESISTANCE 1 UNITS SC ×3 (09:35→21:50)
--- NOTE | 2025-05-14 09:37 | CON.ONC ---
Documented by User: Joe Valles MD, Resident 05/14/25 11:26
Consultation
-
Date Consultation Requested: 05/14/25
Date Consultation Performed: 05/14/25
Requesting Provider: Carson Gracia MD
Performing Provider: Spencer Morgan MD
Reason for Consultation: Biliary obstruction ISO pancreatic cancer
Impression
Impression
Patient of Dr. Keller with localized, unresectable pancreatic adenocarcinoma on maintenance capecitabine s/p 8 cycles of FOLFIRINOX and SBRT in 2022 now with newly diagnosed IDDM and CT A/P 05/11 showing POD and severe CBD obstruction and new SMV
occlusion compared to CT A/P from 12/08/2024.
Plan
Plan
#Unresectable pancreatic adenocarcinoma s/p chemo and RT, now with POD
#CBD obstruction
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
#Nausea
Follows with Dr. Keller. Patient was on maintenance chemotherapy after having completed 8 cycles of FOLFIRINOX and SBRT in 2022. She presented with months of worsening generalized abdominal pain, nausea, early satiety and outpatient CT A/P on 05/11
showed POD and was concerning for severe CBD obstruction with intra and extrahepatic biliary dilation ISO infiltrative malignancy encasing and obstructing CBD. In conversation with radiologist, we confirmed that the SMV occlusion is new from
12/08/2024. On this prior scan, the SMV was severely narrowed but not occluded.
- Plan for ERCP with Dr. Qureshi on 05/14 for biliary decompression
- Discontinue maintenance chemotherapy per patient's conversation with Dr. Keller
- Nausea control with Pepto-Bismol and Compazine per patient's home regimen
- P.o. pain control per primary team
- Continue pancreatic enzymes ISO chronic diarrhea and pancreatic malignancy
- Postprocedure, will plan for heparin drip with plan to transition to Eliquis on discharge: Patient has never been on AC before
#IDDM, new iso POD of pancreatic adenocarcinoma
Patient is currently on Lantus 3 units with sliding scale in the hospital. She reports she had an endocrinology appointment set up for today which she missed due to being in the hospital. She is very concerned as to how she will manage her insulin
at home alone. She already spoke with DM SECURITY SUPERVISOR but feels under prepared to manage her sugars at home.
- Follow-up outpatient with endocrinology
- Recommend nutrition consult given food aversions and new diagnoses of DM
- Recommend another conversation with DM SECURITY SUPERVISOR prior to discharge about insulin management
Patient History
Past-Medical/Surgical History
Viky is a 64-year-old female with hypertension, RLS, PAD, newly diagnosed IDDM ISO pancreatic failure, and localized, unresectable pancreatic adenocarcinoma on maintenance capecitabine with Dr. Keller s/p FOLFIRINOX x 8 cycles and local SBRT in
2022 now presenting with months of abdominal pain, early satiety, nausea, and CT A/P 05/11 showing POD and severe CBD obstruction superior to the pancreatic head and new SMV occlusion compared to CT A/P from 12/08/2024. CT further showed malignancy
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 She reports having lost approximately 10 pounds in the last month, nausea without vomiting which she manages with Pepto-Bismol
and Compazine, abdominal pain worsened with eating, and stabbing acute on chronic back pain secondary to T2-3 disc herniation and bony metastases. She reports that she barely has an appetite, and has had to force food down with water. She states
that she does better with liquids than solids and is wondering if she can speak with nutrition about how best to plan her diet around her diabetes and cancer. Currently, her pain is well-controlled with Dilaudid regimen per primary team. She
reports that she continues to have chronic diarrhea that is similar to her baseline. She is most concerned about how she will manage her newly diagnosed diabetes as someone who lives alone. She is currently on Lantus 3 units however her sugars in
the hospital and based on her CGS roshni are not well-controlled. Per chart review, plan is for palliative biliary decompression via ERCP with Dr. Qureshi on 05/29/2025. Otherwise, she denies fevers, chills, night sweats, urinary symptoms, changes in
medication, recent sick contacts, and pain elsewhere.
Patient Medication
�Medication �Instructions �Recorded �Confirmed �Last Taken �Type
atenolol 25 mg tablet 25 mg PO BID Blood pressure 05/27/20 05/12/25 10/11/22 History
pregabalin 300 mg capsule (Lyrica) 300 mg PO HS Antiseizure Agent 01/30/25 05/12/25 2 Days Ago History
~01/29/25
clobetasol 0.05 % topical cream 1 applic topical BID hands & feet 05/12/25 05/12/25 Unknown History
insulin glargine 100 unit/mL (3 3 unit SC DAILY Diabetes 05/12/25 05/12/25 Unknown History
mL) subcutaneous pen (Lantus
Solostar U-100 Insulin)
qdxiww-lpplkbll-xeaeuvr 2 cap PO BID PRN with snacks 05/12/25 05/12/25 Unknown History
(pork)36,000-114,000-180k unit
capsule,del rel (Creon)
lgnmqt-iivkuqhd-tjpwchw 3 cap PO AC ENZYME 05/12/25 05/12/25 Unknown History
(pork)36,000-114,000-180k unit
capsule,del rel (Creon)
lorazepam 0.5 mg tablet 0.5 mg PO HS Mental Health/Anxiety 05/12/25 05/12/25 Unknown History
oxycodone 5 mg tablet 10 mg PO Q8H PRN severe oain 05/12/25 05/12/25 Unknown History
ropinirole 0.25 mg tablet 0.5 mg PO HS Anti-Parkinson Agent 05/12/25 05/12/25 Unknown History
Active Medications
Generic Name Dose Route Start Last Admin
Trade Name Freq PRN Reason Stop Dose Admin
Clobetasol Propionate 0 applic 05/13/25 20:00 05/13/25 21:20
Clobetasol Propionate 0.05% (Cream) 15 Gram Tube TOPICAL 06/10/25 19:59 1 applic
BID DARLINE Administration
Dextrose 12.5 grams 05/12/25 14:02
Dextrose 50% (0.5 Grams/Ml) 50 Ml Syringe IV 06/09/25 14:01
[id number] PRN
hypoglycemia
Protocol
Glucagon 1 mg 05/12/25 14:02
Glucagon 1 Mg Vial IM 06/09/25 14:01
PRN PRN
hypoglycemia
Protocol
Heparin Sodium 5,000 units 05/12/25 20:00 05/13/25 21:20
Heparin 5,000 Units/Ml 1 Ml Vial SC 06/09/25 19:59 5,000 units
On Hold: 05/14/25 08:00 Q12 DARLINE Administration
Hydromorphone HCl 0.5 mg 05/13/25 12:46 05/14/25 04:20
Hydromorphone 0.5 Mg/0.5 Ml Syringe IV 05/27/25 12:44 0.5 mg
Q3HPRN PRN Administration
mod sev pain
Insulin Glargine 3 units/ 0.03 mls @ 0 mls/hr 05/13/25 08:00 05/13/25 08:41
Device SC 06/10/25 07:59 0.03 mls
DAILY DARLINE Administration
As Directed
Insulin Aspart 0 units 05/12/25 16:30 05/13/25 18:00
Insulin Aspart Low Resistance 300 Units/3 Ml Pen.Injctr SC 06/09/25 16:29 3 units
AC DARLINE Administration
Protocol
Lorazepam 0.5 mg 05/13/25 22:00 05/13/25 21:25
Lorazepam 0.5 Mg Tablet PO 06/10/25 21:59 0.5 mg
HS DARLINE Administration
Ondansetron HCl 4 mg 05/12/25 14:02 05/13/25 09:57
Ondansetron 4 Mg/2 Ml Vial IV 06/09/25 14:01 4 mg
Q6HPRN PRN Administration
NAUSEA/VOMITING
Pancrelipase 2 capsule 05/13/25 13:18
Pancrelipase (Zenpep) Delayed Release Capsule PO 06/10/25 13:17
BIDPRN PRN
with snacks
Pancrelipase 3 capsule 05/13/25 16:30 05/13/25 18:32
Pancrelipase (Zenpep) Delayed Release Capsule PO 06/10/25 16:29 3 capsule
AC DARLINE Administration
Pregabalin 300 mg 05/13/25 22:00 05/13/25 21:24
Pregabalin 100 Mg Capsule PO 06/10/25 21:59 300 mg
HS DARLINE Administration
Ropinirole HCl 0.5 mg 05/13/25 22:00 05/13/25 21:25
Ropinirole 0.25 Mg Tablet PO 06/10/25 21:59 0.5 mg
HS DARLINE Administration
Sodium Chloride 0 flush 05/12/25 15:00
Sodium Chloride 0.9% (Flush) Syringe IV 06/09/25 14:59
PER PROTOCOL DARLINE
Review of Systems
-
History Source: Patient
All Other Systems: Reviewed and Negative
Constitutional: Reports Weight Loss, No Appetite and Fatigue
GI: Reports Abdominal Pain and Nausea
Physical Exam
-
General: No Apparent Distress, Conversant and Cachetic
HEENT: Jaundice (With scleral icterus)
Cardiology: Normal Sinus Rhythm
Pulmonary: Clear
GI: Soft, Normal Bowel Sounds and Other (TTP around the mid abdomen)
Genito-Urinary: No Costovertebral Tenderness
Musculoskeletal: No Clubbing, No Cyanosis and No Edema
Extremities: Pulses Present
Skin: Warm, Dry and Jaundice (Slight)
Psych: Calm and Intact Judgement/Insight
Labs
Lab Results
WBC 4.3 10^3/uL (4.8-10.8) L 05/14/25 07:59
RBC 3.54 10^6/uL (4.20-5.40) L 05/14/25 07:59
Hgb 11.9 g/dL (12.0-16.0) L 05/14/25 07:59
Hct 34.9 % (37.0-47.0) L 05/14/25 07:59
MCV 98.6 fL (81.0-99.0) 05/14/25 07:59
MCH 33.6 pg (27.0-31.0) H 05/14/25 07:59
MCHC 34.1 g/dL (33.0-37.0) 05/14/25 07:59
RDW 17.5 % (11.5-14.5) H 05/14/25 07:59
Plt Count 124 10^3/uL (130-400) L 05/14/25 07:59
MPV 11.7 fL (7.4-10.4) H 05/14/25 07:59
Abs Immat Gran (auto) 0.0 10^3/uL (0-0.05) 05/14/25 07:59
Absolute Neuts (auto) 2.6 10^3/uL (1.4-6.5) 05/14/25 07:59
Absolute Lymphs (auto) 1.0 10^3/uL (1.2-3.4) L 05/14/25 07:59
Absolute Monos (auto) 0.6 10^3/uL (0.1-0.6) 05/14/25 07:59
Absolute Eos (auto) 0.1 10^3/uL (0-0.7) 05/14/25 07:59
Absolute Basos (auto) 0.0 10^3/uL (0-0.2) 05/14/25 07:59
Immature Gran % 0.5 % (0-0.5) 05/14/25 07:59
Neutrophils % 61.0 % (42.2-75.2) 05/14/25 07:59
Lymphocytes % 22.5 % (20.5-51.1) 12/18/25 07:59
Monocytes % 12.9 % (1.7-9.3) H 05/14/25 07:59
Eosinophils % 2.6 % (0-6) 05/14/25 07:59
Basophils % 0.5 % (0-2) 05/14/25 07:59
Creatinine 0.6 mg/dL (0.6-1.0) 05/14/25 07:59
Vital Signs
Vital Signs
Temp Pulse Resp BP Pulse Ox
98.2 F 53 16 129/71 94
05/14/25 07:35 05/14/25 07:35 05/14/25 07:35 05/14/25 07:35 05/14/25 07:35

Documented by User: Spencer Morgan MD 05/14/25 11:30
Plan
Plan
#Unresectable pancreatic adenocarcinoma s/p chemo and RT, now with POD
#CBD obstruction
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
#Nausea
Follows with Dr. Keller. Patient was on maintenance chemotherapy after having completed 8 cycles of FOLFIRINOX and SBRT in 2022. She presented with months of worsening generalized abdominal pain, nausea, early satiety and outpatient CT A/P on 05/11
showed POD and was concerning for severe CBD obstruction with intra and extrahepatic biliary dilation ISO infiltrative malignancy encasing and obstructing CBD. In conversation with radiologist, we confirmed that the SMV occlusion is new from
12/08/2024. On this prior scan, the SMV was severely narrowed but not occluded.
- Plan for ERCP with Dr. Qureshi on 05/14 for biliary decompression
- Discontinue maintenance chemotherapy per patient's conversation with Dr. Keller
- Nausea control with Pepto-Bismol and Compazine per patient's home regimen
- P.o. pain control per primary team
- Continue pancreatic enzymes ISO chronic diarrhea and pancreatic malignancy
- Postprocedure, will plan for heparin drip with plan to transition to Eliquis on discharge: Patient has never been on AC before
#IDDM, new iso POD of pancreatic adenocarcinoma
Patient is currently on Lantus 3 units with sliding scale in the hospital. She reports she had an endocrinology appointment set up for today which she missed due to being in the hospital. She is very concerned as to how she will manage her insulin
at home alone. She already spoke with DM SECURITY SUPERVISOR but feels under prepared to manage her sugars at home.
- Follow-up outpatient with endocrinology
- Recommend nutrition consult given food aversions and new diagnoses of DM
- Recommend another conversation with DM SECURITY SUPERVISOR prior to discharge about insulin management
Hematology Addendum:
Patient seen and evaluated and agree w/ resident note and plan as outlined
-unresectable pancreatic cancer w/ CBD obstruction
-for ERCP procedure today w/ Dr. Qureshi - w/ potential stent placement
-CT imaging reviewed w/ radiology - w/ new SMV thrombosis as compared to prior imaging
-w/ new VTE - recommend heparin gtt post procedure w/ transition to DOAC as outpt
Will continue to follow with you.
[2025-05-14] MEDS: ROXICODONE 5 MG PO ×2 (11:45→17:47)
--- NOTE | 2025-05-14 11:51 | W.PN.HOSP.TC ---
Today's Communication/Plan
-
Monitor vitals
See plan
Added oxycodone
Continue with Dilaudid as needed
Plan for procedure today by GI
Hematology evaluation; Recommend heparin drip post procedure when okay with GI standpoint with transition to DOAC when possible
Assessment / Plan
Assessment / Plan
General: Well Developed, Well Nourished and No Apparent Distress
HEENT: NormoCephalic, Moist mucous membranes and Atraumatic
Respiratory: Clear
Cardiac: S1/S2 and Regular Rhythm; No Murmur or Rub
GI: Soft, Tender, Non Distended and Normal Bowel Sounds
Musculoskeletal:No Edema
Neuro: Nonfocal/grossly intact
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
# Thrombosis of superior mesenteric vein/splenic vein
Was not surgical candidate during diagnosis. Received chemo, radiation.
-LFTs in the 100s, total bilirubin 6.3
- CT abdomen pelvis from yesterday shows severe common bile duct obstruction with severe intrahepatic proximal extrahepatic biliary dilatation, extensive infiltrative pancreatic malignancy in the pancreatic body extending superiorly medially into
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
- Discussed with hematology regarding CT results. Recommend heparin drip post procedure when okay with GI standpoint with transition to DOAC when possible
- GI consulted for consideration of palliative stent
- Zofran, Dilaudid
Recent CA [id number]
Continue with pain control
Pancreatic cancer
- On oral chemotherapy
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
- A1c 8.5
Change Lantus to 5 units
- Insulin sliding scale
Elevated LFTs
Likely secondary to malignancy, monitor
Essential hypertension
Currently normotensive, hold atenolol for now
Neuropathy
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
Restless leg syndrome
- Continue ropinirole, pregabalin
Chronic hyponatremia
monitor
Hypercholesteremia
Chronic back pain
DNR/DNI
DVT prophylaxis heparin
I spent a total of 51 minutes with the patient or on the floor. More than 50% of this time involved counseling and coordination of care.
Anticipated Discharge: 24 - 48 hours
Subjective/Interval History
-
Date of Service: May 14, 2025
denies pain
Objective Data
-
Labs:
Laboratory Results
05/14/25
07:59
WBC 4.3 L
Hgb 11.9 L
Hct 34.9 L
Plt Count 124 L
Sodium 132 L
Potassium 4.9
Chloride 100
Carbon Dioxide 27
BUN 5 L
Creatinine 0.6
Glucose 181 H
Calcium 9.3
Total Bilirubin 4.3 H
AST 133 H
ALT 162 H
Alkaline Phosphatase 457 H
Vital Signs:
Vital Signs
Temp Pulse Resp BP Pulse Ox
98.2 F 53 16 129/71 94
05/14/25 07:35 05/14/25 07:35 05/14/25 07:35 05/14/25 07:35 05/14/25 07:35
I&O
05/13/25 05/14/25 05/15/25
06:59 06:59 06:59
Intake Total 930 / 930
Balance 930 / 930
[2025-05-14 12:25] LABS: Glucose - Point of Care 191 mg/dl (70-99)
[2025-05-14 18:33] LABS: Glucose - Point of Care 107 mg/dl (70-99)
[2025-05-14 19:56] LABS: Glucose - Point of Care 82 mg/dl (70-99)
[2025-05-14] MEDS: ZOFRAN 4 MG IV (20:02)
[2025-05-14 21:39] LABS: Glucose - Point of Care 191 mg/dl (70-99)
[2025-05-14] MEDS: REQUIP 0.5 MG PO (21:48)
[2025-05-14] MEDS: ATIVAN 0.5 MG PO (21:48)
[2025-05-14] MEDS: LYRICA 300 MG PO (21:49)
[2025-05-15] MEDS: ROXICODONE 5 MG PO ×3 (00:58→16:28)
[2025-05-15 03:21] VITALS: BP 157/76
[2025-05-15] MEDS: DILAUDID 0.5 MG IV ×5 (03:31→21:57)
[2025-05-15 07:40] VITALS: BP 134/82
[2025-05-15 07:45] LABS: Hematocrit 33.7 % (37.0-47.0); Hemoglobin 12.0 g/dL (12.0-16.0); Mean Corp Hgb Conc. 35.6 g/dL (33.0-37.0); Mean Corpuscular Volume 97.1 fL (81.0-99.0); Nucleated Red Blood Cells % 0 %; Platelet Count 121 10^3/uL (130-400); Red Cell Dist. Width 17.2 % (11.5-14.5)
[2025-05-15 08:21] LABS: Glucose - Point of Care 242 mg/dl (70-99)
[2025-05-15 08:31] LABS: ALT (SGPT) 148 U/L (0-35); AST (SGOT) 111 U/L (14-36); Albumin 3.8 g/dl (3.5-5.0); Alkaline Phosphatase 416 U/L (38-126); Blood Urea Nitrogen 11 mg/dl (7-17); Calcium 9.1 mg/dl (8.4-10.2); Carbon Dioxide 25 mmol/L (22-30); Chloride 96 mmol/L (98-107); Estimated Creatinine Clearance 72 ml/min; Glucose 239 mg/dl (70-99); Potassium 4.7 mmol/L (3.5-5.1); Sodium 126 mmol/L (135-145); Total Protein 6.4 g/dl (6.3-8.2); eGFR > 60.00
[2025-05-15] MEDS: ZENPEP DELAYED RELEASE CAPSULE PO ×2 (08:54→12:58)
[2025-05-15] MEDS: CLOBETASOL PROPIONATE 0.05% CREAM TOPICAL ×2 (08:55→20:58)
[2025-05-15] MEDS: LANTUS 0.05 UNITS SC (08:56)
[2025-05-15] MEDS: NOVOLOG FLEXPEN-LOW RESISTANCE 2 UNITS SC (08:57)
--- NOTE | 2025-05-15 10:18 | W.PN.ONC2 ---
Today's Communication / Plan
-
.
Impression
Impression
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
s/p ERCP, biliary sphincterotomy, and uncovered metal stent was placed into the common bile duct with improved LFTs
New VTE
newly diagnosed IDDM
hyponatremia
Plan
Plan
recommend heparin gtt post procedure w/ transition to DOAC as outpt
trend LFTs
OP follow up with Dr. Keller 1/ for next steps in management -has mediport already
OP follow up with Dr. Chavez for continued DM management
Subjective/Objective
Subjective
afebrile, no hypoxia or hypotension
using hydromorphone IV prn and oxy IR prn pain
using zofran prn nausea
Vital Signs:
Vital Signs
Temp Pulse Resp BP Pulse Ox
98.4 F 90 16 134/82 95
05/15/25 07:40 05/15/25 07:40 05/15/25 07:40 05/15/25 07:40 05/15/25 07:40
Lab Results:
Laboratory Data
WBC 3.4 10^3/uL (4.8-10.8) L 05/15/25 06:31
Hgb 12.0 g/dL (12.0-16.0) 05/15/25 06:31
Plt Count 121 10^3/uL (130-400) L 05/15/25 06:31
PT 14.3 Sec (11.4-14.6) 05/12/25 11:13
INR 1.10 05/12/25 11:13
APTT 27.0 Sec (23.4-35.0) 05/12/25 11:13
eGFR > 60.00 05/15/25 06:31
Physical Exam
HEENT: Moist Mucous Membranes
Pulmonary: Other (unlabored)
GI: Soft
Extremities: Pulses Present
--- NOTE | 2025-05-15 12:07 | W.PN.HOSP.TC ---
Today's Communication/Plan
-
Monitor vital signs see plan
Diet per gastroenterology
Start heparin drip when okay with GI, TT Dr. Qureshi and waiting for reply
pain control
monitor LFT's
Assessment / Plan
Assessment / Plan
General: Well Developed, Well Nourished and No Apparent Distress
HEENT: NormoCephalic, Moist mucous membranes and Atraumatic
Respiratory: Clear
Cardiac: S1/S2 and Regular Rhythm; No Murmur or Rub
GI: Soft, Tender, Non Distended and Normal Bowel Sounds
Musculoskeletal:No Edema
Neuro: Nonfocal/grossly intact
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
# Thrombosis of superior mesenteric vein/splenic vein
Was not surgical candidate during diagnosis. Received chemo, radiation.
-LFTs in the 100s, total bilirubin 6.3
- CT abdomen pelvis from yesterday shows severe common bile duct obstruction with severe intrahepatic proximal extrahepatic biliary dilatation, extensive infiltrative pancreatic malignancy in the pancreatic body extending superiorly medially into
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
- Discussed with hematology regarding CT results. Recommend heparin drip post procedure when okay with GI standpoint with transition to DOAC when possible
GI following, status post ERCP. Single severe biliary stricture found in the lower third of the main bile duct. Biliary sphincterotomy was performed. 1 metal stent was placed into the common bile duct.
- Zofran, Dilaudid, oxy
Recent CA [id number]
Continue with pain control
Pancreatic cancer
- On oral chemotherapy
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
- A1c 8.5; recently diagnosed. Has seen endocrinology once briefly last week. Diabetes [employer]HW[employer] MAIN[employer] evaluation
Change Lantus to 8 units; add mealtime insulin
- Insulin sliding scale
Chronic hyponatremia
monitor
Elevated LFTs
Likely secondary to malignancy, monitor
Essential hypertension
Restart atenolol
Leukopenia and thrombocytopenia likely secondary malignancy
Neuropathy
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
Restless leg syndrome
- Continue ropinirole, pregabalin
Hypercholesteremia
Chronic back pain
DNR/DNI
DVT prophylaxis heparin
I spent a total of 52 minutes with the patient or on the floor. More than 50% of this time involved counseling and coordination of care.
Anticipated Discharge: 24 - 48 hours
Subjective/Interval History
-
Date of Service: May 15, 2025
denies nausea
Objective Data
-
Labs:
Laboratory Results
05/15/25
06:31
WBC 3.4 L
Hgb 12.0
Hct 33.7 L
Plt Count 121 L
Sodium 126 L
Potassium 4.7
Chloride 96 L
Carbon Dioxide 25
BUN 11
Creatinine 0.5 L
Glucose 239 H
Calcium 9.1
Total Bilirubin 2.4 H
AST 111 H
ALT 148 H
Alkaline Phosphatase 416 H
Vital Signs:
Vital Signs
Temp Pulse Resp BP Pulse Ox
98.4 F 90 16 134/82 95
05/15/25 07:40 05/15/25 07:40 05/15/25 07:40 05/15/25 07:40 05/15/25 07:40
I&O
05/14/25 05/15/25 05/16/25
06:59 06:59 06:59
Intake Total 930 / 930 480 / 480
Balance 930 / 930 480 / 480
[2025-05-15 12:10] LABS: Glucose - Point of Care 352 mg/dl (70-99)
--- NOTE | 2025-05-15 12:31 | PTCARENOTE ---
Assumed care of patient. Pt AOx3, independent in the room. Pt upset she is still on a clear liquid diet. Reports feeling hungry, denies pain or nausea. Informed pt w/ are waiting for Dr Qureshi and the primary team to weigh in on the plan of care and
advance the diet. Both MD's notified. Will continue to monitor and await orders.
--- NOTE | 2025-05-15 12:50 | PN.DE.MGMTRT ---
Insulin Management
- -
05/15/2025: Diabetes Management Consult
64 year old female with [PMH: HTN, Restless Leg Syndrome, HLD, hyponatremia, chronic back pain and Pancreatic cancer on maintenance chemotherapy, presenting with months of worsening generalized abdominal pain, nausea, early satiety, ongoing
diarrhea, weakness and weight loss.
Patient is on maintenance capecitabine s/p 8 cycles of FOLFIRINOX and SBRT in 2022 now with newly diagnosed IDDM and CT A/P 05/11 showing POD and severe CBD obstruction and new SMV occlusion. Follows with Dr. Keller. She is s/p ERCP with Dr. Qureshi on
05/14 for biliary decompression
Patient is awake, alert, oriented, sitting up, pleasant, able to discuss diabetes care plan. Family- Dtr and ZULEMA at bedside, very supportive.
Patient reports she had an endocrinology consult and was recently started on Lantus 3 units in AM. States she only took 3 doses and had a f/u appointment set up for today which she missed due to being in the hospital. Uses CGM-Eleno 3 plus.
Patient is currently on Lantus 8 units with sliding scale in the hospital. NovoLog 3 units AC has been added by hospitalist team.
Glucose has trended up to 352 pre-lunch today, fasting was 239 V, 242 POC.
Will increase Lantus to 10 units daily, 1st dose in AM and increase NovoLog to 5 units AC. Cont corrective insulin with meals. She is very concerned as to how she will manage her insulin at home alone.
Discussed with pt that she will have a set dose of both Lantus and NovoLog at discharge that she will cont to self administer at home with close f/u with her Telephone Exchange Operator. Pt states she is comfortable with administering insulin at home.
Discussed with Nurse. Will cont to monitor
Diabetes History
- -
Type of Diabetes: 2 requiring insulin
Pre-Admission Diabetes Regimen
05/15/25
06:31
Creatinine 0.5 L
Insulin Pump Settings
IP Diabetes Regimen
05/14/25 05/14/2505/14/25
18:32 19:54 21:38
Glucose
POC Glucose 107 H 82 191 H
05/15/25 05/15/25 05/15/25
06:31 08:21 12:09
Glucose 239 H
POC Glucose 242 H 352 H
Meal type: Dinner
Meal type: Lunch
Amount consumed: 100%
Patient Education
[2025-05-15] MEDS: NOVOLOG FLEXPEN-LOW RESISTANCE 5 UNITS SC (12:59)
[2025-05-15] MEDS: NOVOLOG FLEXPEN 3 UNITS SC (13:00)
[2025-05-15] MEDS: ZENPEP DELAYED RELEASE CAPSULE 3 CAPSULE PO ×2 (13:35→17:34)
[2025-05-15 14:26] LABS: APTT 25.2 Sec (23.4-35.0)
[2025-05-15] MEDS: HEPARIN 25000 UNITS/250 ML IV (14:39)
[2025-05-15] MEDS: HEPARIN 3800 UNITS IV (14:48)
[2025-05-15 15:25] VITALS: BP 120/60
--- NOTE | 2025-05-15 17:31 | CM ---
Discharge POC: Anticipate home with no needs. Follow with Oncology and continue chemo.
[2025-05-15 17:33] LABS: Glucose - Point of Care 320 mg/dl (70-99)
[2025-05-15] MEDS: NOVOLOG FLEXPEN 5 UNITS SC (17:35)
[2025-05-15] MEDS: NOVOLOG FLEXPEN-LOW RESISTANCE 4 UNITS SC (17:36)
--- NOTE | 2025-05-15 17:36 | W.PN.GI.CBS2 ---
Today's Communication / Plan
-
ok to start anticoagulation
Assessment / Plan
-
64 year old female well known to me p/w jaundice and elevated LFT in setting of pancreatic adenocarcinoma in the body of panc diagnosed in 2022. She was seen by Dr. Huerta at [facility] and was determined not a surgical candidate, has been on palliative
chemo since. Also had cyberknife RTX. Presenting with abdo pain, elevated LFT, jaundice, and CT showing IH/EH biliary dilation.
s/p ERCP yesterday for palliative biliary decompression. 10 mm x 6 cm uncovered SEMS placed. LFT improving today. Tolerating diet. Ok to start anticoagulation for SMV/SV thrombosis. F/u oncology. GI s/o, call with questions.
Total Time Spent with Patient (in minutes): 35
Subjective
Subjective
Date of Service: May 15, 2025
tolerating diet
Objective
Data Reviewed
Laboratory Data:
Laboratory Results
05/15/25 06:31
05/15/25 06:31
Laboratory Results
PT 14.3 Sec (11.4-14.6) 05/12/25 11:13
INR 1.10 05/12/25 11:13
APTT 25.2 Sec (23.4-35.0) 05/15/25 14:04
Total Bilirubin 2.4 mg/dl (0.2-1.3) H 05/15/25 06:31
AST 111 U/L (14-36) H 05/15/25 06:31
ALT 148 U/L (0-35) H 05/15/25 06:31
Alkaline Phosphatase 416 U/L (38-126) H 05/15/25 06:31
Vital Signs and I&O:
Vital Signs
Temp Pulse Resp BP Pulse Ox
98.0 F 89 16 120/60 94
05/15/25 15:25 05/15/25 15:25 05/15/25 15:25 05/15/25 15:25 05/15/25 15:25
I&O
05/14/25 05/15/25 05/16/25
06:59 06:59 06:59
Intake Total 930 / 930 480 / 480
Balance 930 / 930 480 / 480
[2025-05-15] MEDS: LYRICA 300 MG PO (21:00)
--- NOTE | 2025-05-15 21:00 | PTCARENOTE ---
Pt's PTT above 200. House provider made aware. Held heparin gtt as per protocol for 2 hours.
[2025-05-15] MEDS: TENORMIN 25 MG PO (21:01)
[2025-05-15] MEDS: REQUIP 0.5 MG PO (21:05)
[2025-05-15 21:29] LABS: APTT > 200 Sec (23.4-35.0)
[2025-05-15] MEDS: PEPCID 40 MG PO (22:11)
[2025-05-15 22:12] LABS: Glucose - Point of Care 268 mg/dl (70-99)
[2025-05-15] MEDS: ATIVAN 0.5 MG PO (22:57)
[2025-05-15 23:38] VITALS: BP 139/65
[2025-05-16] MEDS: ROXICODONE 5 MG PO ×2 (00:52→08:05)
[2025-05-16] MEDS: DILAUDID 0.5 MG IV ×3 (05:41→12:46)
[2025-05-16 06:16] LABS: APTT 55.3 Sec (23.4-35.0)
[2025-05-16 06:21] LABS: ALT (SGPT) 128 U/L (0-35); AST (SGOT) 98 U/L (14-36); Albumin 4.1 g/dl (3.5-5.0); Alkaline Phosphatase 376 U/L (38-126); Blood Urea Nitrogen 17 mg/dl (7-17); Calcium 9.3 mg/dl (8.4-10.2); Carbon Dioxide 28 mmol/L (22-30); Chloride 94 mmol/L (98-107); Estimated Creatinine Clearance 72 ml/min; Glucose 200 mg/dl (70-99); Potassium 4.9 mmol/L (3.5-5.1); Sodium 130 mmol/L (135-145); Total Protein 6.7 g/dl (6.3-8.2); eGFR > 60.00
[2025-05-16 06:41] LABS: Hematocrit 36.2 % (37.0-47.0); Hemoglobin 12.3 g/dL (12.0-16.0); Mean Corp Hgb Conc. 34.0 g/dL (33.0-37.0); Mean Corpuscular Volume 102.0 fL (81.0-99.0); Nucleated Red Blood Cells % 0 %; Platelet Count 147 10^3/uL (130-400); Red Cell Dist. Width 18.1 % (11.5-14.5)
[2025-05-16] MEDS: HEPARIN 3800 UNITS IV (06:56)
[2025-05-16 07:00] VITALS: BP 123/59
[2025-05-16] MEDS: CLOBETASOL PROPIONATE 0.05% CREAM 1 APPLIC TOPICAL (08:05)
[2025-05-16] MEDS: TENORMIN 25 MG PO (08:05)
[2025-05-16] MEDS: ZENPEP DELAYED RELEASE CAPSULE 3 CAPSULE PO ×2 (08:06→11:49)
[2025-05-16 08:09] LABS: Glucose - Point of Care 169 mg/dl (70-99)
[2025-05-16] MEDS: NOVOLOG FLEXPEN-LOW RESISTANCE 1 UNITS SC (09:23)
[2025-05-16] MEDS: NOVOLOG FLEXPEN 5 UNITS SC ×2 (09:24→12:37)
[2025-05-16] MEDS: LANTUS 0.1 UNITS SC (09:36)
--- NOTE | 2025-05-16 10:05 | W.PN.ONC2 ---
Today's Communication / Plan
-
.
Impression
Impression
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
s/p ERCP, biliary sphincterotomy, and uncovered metal stent was placed into the common bile duct with improved LFTs
New VTE
newly diagnosed IDDM
hyponatremia
Plan
Plan
recommend heparin gtt post procedure w/ transition to DOAC as outpt
trend LFTs
OP follow up with Dr. Keller 1/2 for next steps in management -has mediport already
OP follow up with Dr. Chavez for continued DM management
Subjective/Objective
Subjective
Afebrile, no hypoxia or hypotension
using hydromorphone IV and oxy IR prn pain
Vital Signs:
Vital Signs
Temp Pulse Resp BP Pulse Ox
98.9 F 72 18 123/59 94
05/16/25 07:00 05/16/25 07:00 05/16/25 07:00 05/16/25 07:00 05/16/25 07:00
Lab Results:
Laboratory Data
WBC 8.4 10^3/uL (4.8-10.8) 05/16/25 05:35
Hgb 12.3 g/dL (12.0-16.0) 05/16/25 05:35
Plt Count 147 10^3/uL (130-400) D 05/16/25 05:35
PT 14.3 Sec (11.4-14.6) 05/12/25 11:13
INR 1.10 05/12/25 11:13
APTT 55.3 Sec (23.4-35.0) H 05/16/25 05:36
eGFR > 60.00 05/16/25 05:36
Physical Exam
HEENT: Moist Mucous Membranes; No Jaundice
Pulmonary: Other (unlabored)
GI: Soft
Extremities: Pulses Present
[2025-05-16] MEDS: ELIQUIS 10 MG PO (11:47)
[2025-05-16 12:30] LABS: Glucose - Point of Care 223 mg/dl (70-99)
[2025-05-16] MEDS: NOVOLOG FLEXPEN-LOW RESISTANCE 2 UNITS SC (12:36)
--- NOTE | 2025-05-16 13:08 | W.PN.HOSP.TC ---
Today's Communication/Plan
-
Monitor vital signs see plan
Transition IV heparin to Eliquis
Continue with insulin
Discussed with hematology
Discharge today
Time of discharge 38 minutes
Assessment / Plan
Assessment / Plan
General: Well Developed, Well Nourished and No Apparent Distress
HEENT: NormoCephalic, Moist mucous membranes and Atraumatic
Respiratory: Clear
Cardiac: S1/S2 and Regular Rhythm; No Murmur or Rub
GI: Soft, Tender, Non Distended and Normal Bowel Sounds
Musculoskeletal:No Edema
Neuro: Nonfocal/grossly intact
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
# Thrombosis of superior mesenteric vein/splenic vein
Was not surgical candidate during diagnosis. Received chemo, radiation.
-LFTs in the 100s, total bilirubin 6.3
- CT abdomen pelvis from yesterday shows severe common bile duct obstruction with severe intrahepatic proximal extrahepatic biliary dilatation, extensive infiltrative pancreatic malignancy in the pancreatic body extending superiorly medially into
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
- Discussed with hematology regarding CT results. Currently on heparin drip, discussed with hematology. Transition to p.o. Eliquis
GI following, status post ERCP. Single severe biliary stricture found in the lower third of the main bile duct. Biliary sphincterotomy was performed. 1 metal stent was placed into the common bile duct.
- Zofran, Dilaudid, oxy
Recent CA [id number] [id number]
Continue with pain control
Pancreatic cancer
- On oral chemotherapy
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
- A1c 8.5; recently diagnosed. Has seen endocrinology once briefly last week. Diabetes [employer] evaluation
Continue with current dose of Lantus and aspart. Patient seen diabetes [employer]. Will follow-up with endocrinology outpatient
- Insulin sliding scale
Chronic hyponatremia
monitor
Elevated LFTs
Likely secondary to malignancy, monitor
Essential hypertension
Restarted atenolol
Leukopenia and thrombocytopenia likely secondary malignancy
Neuropathy
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
Restless leg syndrome
- Continue ropinirole, pregabalin
Hypercholesteremia
Chronic back pain
DNR/DNI
DVT prophylaxis heparin
Anticipated Discharge: Today
Subjective/Interval History
-
Date of Service: May 16, 2025
Denies pain
Objective Data
-
Labs:
Laboratory Results
05/16/25 05/16/25 05/16/25
05:35 05:36 13:00
WBC 8.4
Hgb 12.3
Hct 36.2 L
Plt Count 147 D
APTT 55.3 H Pending
Sodium 130 L
Potassium 4.9
Chloride 94 L
Carbon Dioxide 28
BUN 17
Creatinine 0.6
Glucose 200 H
Calcium 9.3
Total Bilirubin 2.2 H
AST 98 H
ALT 128 H
Alkaline Phosphatase 376 H
Vital Signs:
Vital Signs
Temp Pulse Resp BP Pulse Ox
98.9 F 72 18 123/59 94
05/16/25 07:00 05/16/25 07:00 05/16/25 07:00 05/16/25 07:00 05/16/25 07:00
I&O
05/15/25 05/16/25 05/17/25
06:59 06:59 06:59
Intake Total 480 / 480 1080 / 1080
Balance 480 / 480 1080 / 1080
--- NOTE | 2025-05-16 13:18 | W.DCSUMMARY ---
Discharge Summary
Discharge Data
Date of Admission: 05/12/25
Date of Discharge: 05/16/25
-
Pending Results: No
Hospital Course
64-year-old female with past medical history of pancreatic cancer with encasement of superior mesenteric artery, diabetes mellitus, chronic hyponatremia, elevated LFTs, essential hypertension, neuropathy, restless leg syndrome, chronic back pain,
hyperlipidemia came to the hospital with severe common bile duct obstruction secondary to pancreatic malignancy. Patient also had thrombosis of superior mesenteric vein/splenic vein. This was discussed with oncology and they recommended
anticoagulation. For her severe biliary ductal obstruction patient was seen by GI who took the patient for ERCP and it showed biliary stricture. Patient got 1 metal stent in CBD. Postop patient continued to feel better and was able to tolerate
low-fat diet. Oncology recommended IV heparin to be transition to Eliquis. Once patient symptoms continue to improve, she was then discharged home with instructions to follow-up with all her physicians outpatient.
Discharge Plan
-
Patient Disposition: Home (Routine Discharge)
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
Thrombosis of superior mesenteric vein/splenic vein
Status post ERCP. Single severe biliary stricture found in the lower third of the main bile duct. Biliary sphincterotomy was performed.
One metal stent was placed into the common bile duct
Condition: Fair
Diet: Low Fat
Activity: As tolerated
Driving Restrictions: As prior to admission
Bathing Restrictions: None
Blood Work: CMP next week with oncology
Referrals:
Jovanna Keller DO [Active, Hematology / Oncology] - in one to two weeks
Nick Qureshi MD [Active, Gastroenterology] - in two weeks
NONE,* [Family Provider, Internal Medicine] - in less than 1 week
Prescriptions:
New
insulin aspart U-100 [Novolog FlexPen U-100 Insulin] 100 unit/mL (3 mL) Insulin Pen
5 unit SC AC Qty: 5 0RF
Eliquis 5 mg tablet
5 mg PO BID Qty: 60 0RF
Rx Instructions:
Take 10 mg oral twice daily through 05/22/2025
Starting 05/23 decrease to 5 mg oral twice daily
Continued
atenolol 25 MG tablet
25 mg PO BID
pregabalin [Lyrica] 300 mg Capsule
300 mg PO HS
clobetasol 0.05 % Cream
1 applic TOPICAL BID
lorazepam 0.5 mg Tablet
0.5 mg PO HS
ropinirole 0.25 mg Tablet
0.5 mg PO HS
oxycodone 5 mg Tablet
10 mg PO Q8H PRN (Reason: severe oain)
Rx Instructions:
pt reports they have been taking 2 5mg tablets every 4 hours - MKO
Creon 36,000-114,000- 180,000 unit Capsule,Delayed Release(Dr/Ec)
3 cap PO AC
Creon 36,000-114,000- 180,000 unit Capsule,Delayed Release(Dr/Ec)
2 cap PO BID PRN (Reason: with snacks)
Changed
insulin glargine [Lantus Solostar U-100 Insulin] 100 unit/mL (3 mL) Insulin Pen
10 unit SC DAILY Qty: 0 0RF
Discharge Orders:
Discharge Patient (As Directed); Ordered 05/16/25
Ordered By: Carson Gracia
Discharge Date and Time
Discharge Date/Time: 05/16/25 14:56
Print Language: ARMENIAN
--- NOTE | 2025-05-16 14:16 | CM ---
Plan: Discharge to home; no needs; friend will transport home
[2025-05-16 14:23] VITALS: BP 128/59
== END 2025-05-16 14:56 | disposition home or self-care (01) | DRG 435 ==
LOC: 2 NORTH 13:55
PROVIDERS: Physician Assistant Medical; ADMITTING PHYSICIAN Hospitalist; ATTENDING PHYSICIAN Internal Medicine; CONSULT PHYSICIAN Internal Medicine Hematology & Oncology; EMERGENCY PHYSICIAN Emergency Medicine; OTHER PHYSICIAN Internal Medicine Gastroenterology
PROC: 0F798DZ Dilation of Common Bile Duct with Intraluminal Device, Via Natural or Artificial Opening Endoscopic (ICD-10-PCS; 2025-05-14)
DX: C25.1 Malignant neoplasm of body of pancreas (principal); K55.059 Acute (reversible) ischemia of intestine, part and extent unspecified; K83.1 Obstruction of bile duct; E87.1 Hypo-osmolality and hyponatremia; K55.1 Chronic vascular disorders of intestine; I82.890 Acute embolism and thrombosis of other specified veins; Z68.1 Body mass index [BMI] 19.9 or less, adult; C79.51 Secondary malignant neoplasm of bone; F17.200 Nicotine dependence, unspecified, uncomplicated; E11.65 Type 2 diabetes mellitus with hyperglycemia; Z79.4 Long term (current) use of insulin; I10 Essential (primary) hypertension; G25.81 Restless legs syndrome; E78.00 Pure hypercholesterolemia, unspecified; G89.29 Other chronic pain; M54.9 Dorsalgia, unspecified; Z66 Do not resuscitate; C80.1 Malignant (primary) neoplasm, unspecified; E88.A Wasting disease (syndrome) due to underlying condition; D69.6 Thrombocytopenia, unspecified; E11.40 Type 2 diabetes mellitus with diabetic neuropathy, unspecified; E11.51 Type 2 diabetes mellitus with diabetic peripheral angiopathy without gangrene; E11.649 Type 2 diabetes mellitus with hypoglycemia without coma; Z79.01 Long term (current) use of anticoagulants; Z79.899 Other long term (current) drug therapy; Z92.3 Personal history of irradiation
CPT/HCPCS: 74330; 76000; 80053; 80076; 82962; 85025; 85610; 85730; 86850; 86900; 86901; 96361; 96374; 99284; C1769; C1876

== ENCOUNTER → 2025-05-25 12:55 | Outpatient (REF) | payer OTHER, SELFPAY ==
[2025-05-25 13:21] LABS: Hematocrit 32.6 % (37.0-47.0); Hemoglobin 10.8 g/dL (12.0-16.0); Mean Corp Hgb Conc. 33.1 g/dL (33.0-37.0); Mean Corpuscular Volume 100.0 fL (81.0-99.0); Nucleated Red Blood Cells % 0 %; Platelet Count 193 10^3/uL (130-400); Red Cell Dist. Width 17.1 % (11.5-14.5)
[2025-05-25 13:56] LABS: ALT (SGPT) 27 U/L (0-35); AST (SGOT) 30 U/L (14-36); Albumin 3.7 g/dl (3.5-5.0); Alkaline Phosphatase 151 U/L (38-126); Blood Urea Nitrogen 10 mg/dl (7-17); Calcium 8.8 mg/dl (8.4-10.2); Carbon Dioxide 27 mmol/L (22-30); Chloride 97 mmol/L (98-107); Glucose 238 mg/dl (70-99); Potassium 4.5 mmol/L (3.5-5.1); Sodium 129 mmol/L (135-145); Total Protein 6.4 g/dl (6.3-8.2); eGFR > 60.00
== END ==
LOC: REG 12:55
PROVIDERS: ATTENDING PHYSICIAN Internal Medicine Hematology & Oncology
DX: C25.3 Malignant neoplasm of pancreatic duct (principal); K86.81 Exocrine pancreatic insufficiency; L27.1 Localized skin eruption due to drugs and medicaments taken internally; M54.6 Pain in thoracic spine
CPT/HCPCS: 36415; 80053; 85025